=== PATIENT | male | born 1950 | race Caucasian/White ===

== ENCOUNTER → 2016-10-23 | Outpatient (CLI) | payer OTHER ==
[~2016-10-23] MED LIST: ALL100 PO; AMIO200T4 PO; AMX500 PO; ASPI81TA28 PO; ATOR80TA PO; CYAN100020 PO; DILT-113 PO; DRN400 PO; FERR1TAB13 PO; FERR325T PO; FOLI1TAB7 PO; FURO40TA3 PO; GABA1CAP5 PO; HYDR-5688 PO; KRIL1CAP18 PO; LEVO1TAB35 PO; LPT40; LSN5 PO; METO100T14 PO; MISCCAP80 PO; MULT-610 PO; OXYC-652 PO; OXYSR10 PO; PANT40TA PO; POTA1TAB PO; PRDUDL5 BU; RIVA1TAB4 PO; RXC5 PO; SILD100T PO; SILDENAFIL PO; TADA10TA PO; TADA5TAB11 PO; THIA100T11 PO; TRAM-10 PO; ULT50 PO; XRL10 PO; [UNRECOGNIZED DRUG - REMARK] IV
[2016-10-23 12:38] LABS: BLOOD UREA NITROGEN 18 mg/dl (7-18); BUN/CREATININE RATIO 18.2 (10-20); CALCIUM 8.8 mg/dl (8.5-10.1); CARBON DIOXIDE 26 mmol/L (21-32); CHLORIDE 103 mmol/L (98-107); GLUCOSE 124 mg/dl (70-99); SODIUM 139 mmol/L (136-145)
== END | disposition home or self-care (01) ==
LOC: C.LAB1850 10:27
PROVIDERS: ATTEND Internal Medicine Cardiovascular Disease
DX: I48.0 Paroxysmal atrial fibrillation (principal); I50.30 Unspecified diastolic (congestive) heart failure

== ENCOUNTER → 2016-10-30 | Outpatient (CLI) | payer OTHER ==
[2016-10-30 18:50] LABS: BLOOD UREA NITROGEN 14 mg/dl (7-18); BUN/CREATININE RATIO 14.8 (10-20); CALCIUM 9.2 mg/dl (8.5-10.1); CARBON DIOXIDE 29 mmol/L (21-32); CHLORIDE 104 mmol/L (98-107); CREATININE 0.95 mg/dl (0.60-1.40); GLUCOSE 120 mg/dl (70-99); POTASSIUM 3.8 mmol/L (3.5-5.1); SODIUM 140 mmol/L (136-145)
[2016-10-31 06:20] LABS: ESTIMATED AVERAGE GLUCOSE 137 mg/dl; HA1C FLAG Normal (Normal)
== END | disposition home or self-care (01) ==
LOC: C.LABMFLN 13:49
PROVIDERS: ATTEND Internal Medicine Cardiovascular Disease
DX: I50.30 Unspecified diastolic (congestive) heart failure (principal); R73.01 Impaired fasting glucose

== ENCOUNTER 2017-01-04 07:58 | Inpatient (IN) | payer OTHER ==
--- NOTE | 2016-12-21 10:52 | PAT Medication Instructions ---
Service Date Dec 21, 2016. Current Home Medication List Allopurinol (Allopurinol), 100 MG PO QAM Amiodarone Hcl (Cordarone), 200 MG PO QAM Amoxicillin (Amoxicillin), 4 CAP PO UD Aspirin (Aspirin Ec), 81 MG PO QAM Atorvastatin Calcium (Lipitor), 40 MG PO HS Cyanocobalamin (Vitamin B12), 1,000 MCG PO noon Cyanocobalamin (Vitamin B12), 1 TAB PO QAM Diltiazem Hcl Ext Rel (Tiazac), 180 MG PO QAM Ferrous Sulfate (Kp Ferrous Sulfate), 1 TAB PO QAM Furosemide (Lasix), 40 MG PO Q12 Gabapentin (Neurontin), 800 MG PO BID Hydrocodone/Acetaminophen 5MG/325MG ([place] 5MG/325MG), 1 TABLET PO Q4 PRN for Pain Krill Oil (Megared Apex-3 Krill Oil 500 mg), 1 CAP PO noon Lisinopril (Lisinopril), 5 MG PO QAM Metoprolol Tartrate (Lopressor) (Lopressor), 100 MG PO BID Multiple Vitamins W/ Minerals (Centrum Adults), 1 TAB PO QAM Pantoprazole (Protonix), 40 MG PO QPM Potassium Gluconate (Potassium Gluconate), 595 MG PO QAM Probiotic Product (Probiotic), 1 CAP PO BID Rivaroxaban (Xarelto), 20 TAB PO QPM Sildenafil Citrate (Viagra), 50 MG PO PRN Tadalafil (Cialis), 5 MG PO QAM Tramadol (Ultram), 50 MG PO BID PRN for Pain Medication Instructions For Your Scheduled Surgery - Hold the following medications 2 weeks prior to surgery: Krill Oil (Megared Apex-3 Krill Oil 500 mg), 1 CAP PO noon - Hold the following medications 48 hours prior to surgery per Cardiology instructions: Rivaroxaban (Xarelto), 20 TAB PO QPM - Hold the following medications the morning of surgery: Lisinopril (Lisinopril), 5 MG PO QAM Furosemide (Lasix), 40 MG PO Q12 Cyanocobalamin (Vitamin B12), 1 TAB PO QAM Ferrous Sulfate (Kp Ferrous Sulfate), 1 TAB PO QAM Multiple Vitamins W/ Minerals (Centrum Adults), 1 TAB PO QAM Probiotic Product (Probiotic), 1 CAP PO BID Cyanocobalamin (Vitamin B12), 1,000 MCG PO noon Potassium Gluconate (Potassium Gluconate), 595 MG PO QAM - Take the following medications the morning of surgery with a sip of water OTHERWISE NOTHING TO EAT OR DRINK AFTER MIDNIGHT: Aspirin (Aspirin Ec), 81 MG PO QAM Tramadol (Ultram), 50 MG PO BID PRN for Pain (may take up to 4 hours prior to surgery if needed) Diltiazem Hcl Ext Rel (Tiazac), 180 MG PO QAM Allopurinol (Allopurinol), 100 MG PO QAM Amiodarone Hcl (Cordarone), 200 MG PO QAM Gabapentin (Neurontin), 800 MG PO BID Hydrocodone/Acetaminophen 5MG/325MG ([place] 5MG/325MG), 1 TABLET PO Q4 PRN for Pain (may take up to 4 hours prior to surgery if needed) Metoprolol Tartrate (Lopressor) (Lopressor), 100 MG PO BID Tadalafil (Cialis), 5 MG PO QAM - Take the following medications as scheduled the night before surgery: Tramadol (Ultram), 50 MG PO BID PRN for Pain Gabapentin (Neurontin), 800 MG PO BID Hydrocodone/Acetaminophen 5MG/325MG ([place] 5MG/325MG), 1 TABLET PO Q4 PRN for Pain Metoprolol Tartrate (Lopressor) (Lopressor), 100 MG PO BID Furosemide (Lasix), 40 MG PO Q12 Probiotic Product (Probiotic), 1 CAP PO BID Atorvastatin Calcium (Lipitor), 40 MG PO HS Pantoprazole (Protonix), 40 MG PO QPM If you have any questions please call us at [phone] or [phone] or [phone]
--- NOTE | 2016-12-21 11:22 | DIAGNOSTIC IMAGING REPORT ---
CHEST PREADMISSION(PA/LAT) CLINICAL HISTORY: Preoperative chest COMPARISON STUDY: 06/10/2016 FINDINGS: The cardiac and mediastinal contours are normal. There is no evidence of focal pulmonary consolidation. There is no evidence of failure. No pleural effusions are visualized.[ The chest has an emphysematous configuration. There had been interval resolution of the right mid and lower lung zone parenchymal consolidation. IMPRESSION: No active disease in the chest. Electronically signed by: Santana Sauceda M.D. 12/21/2016 11:20 AM Dictated Date/Time: 12/21/2016 11:20 AM
[2016-12-21 11:42] LABS: BASO % 0.4 %; BASO ABS # 0.03 K/uL (0-0.2); EOS % 3.1 %; HEMATOCRIT 40.7 % (42-52); IG% 0.1 %; LYMPH % 19.6 %; LYMPH ABS # 1.44 K/uL (1.2-3.4); MEAN CELL VOLUME 83.4 fL (80-100); MEAN CORPUSCULAR HEMOGLOBIN 27.7 pg (25-34); MEAN CORPUSCULAR HGB CONC 33.2 g/dl (32-36); MONO % 9.9 %; NEUT % 66.9 %; PLATELET COUNT 180 K/uL (130-400); RED BLOOD COUNT 4.88 M/uL (4.7-6.1); WHITE BLOOD COUNT 7.35 K/uL (4.8-10.8)
[2016-12-21 11:51] LABS: URINE APPEARANCE CLEAR (CLEAR); URINE BILIRUBIN NEG (NEG); URINE COLOR YELLOW; URINE NITRITE NEG (NEG); URINE PH 7.5 (4.5-7.5); URINE SPECIFIC GRAVITY 1.007 (1.000-1.030); UROBILINOGEN NEG (NEG); ZZUR CULT IF INDIC CLEAN CATCH NO
[2016-12-21 11:55] LABS: INR 1.1 (0.9-1.1); PARTIAL THROMBOPLASTIN RATIO 1.2
[2016-12-21 12:00] LABS: ANISOCYTOSIS PRESENT; COMPLETE YES; HYPOCHROMIA PRESENT
[2016-12-21 12:02] LABS: MANUAL MICROSCOPIC REQUIRED? NO; REVIEW REQ? NO
[2016-12-21 12:30] LABS: ESTIMATED AVERAGE GLUCOSE 114 mg/dl; HA1C FLAG Normal (Normal)
[2016-12-21 12:33] LABS: BUN/CREATININE RATIO 17.7 (10-20); CALCIUM 9.3 mg/dl (8.5-10.1); CREATININE 0.83 mg/dl (0.60-1.40); POTASSIUM 3.7 mmol/L (3.5-5.1)
--- NOTE | 2017-01-03 15:19 | HISTORY & PHYSICAL EXAMINATION ---
DATE OF ADMISSION: 01/04/2017 CHIEF COMPLAINT: Left knee pain and right knee chronic prepatellar bursitis. HISTORY OF PRESENT ILLNESS: The patient is a 66-year-old gentleman with known osteoarthritis about his left knee. He had a previous right knee replacement without any complications. He does have some chronic prepatellar bursitis on the right knee. In the left knee has had previous intraarticular corticosteroid injections. He was actually scheduled to have a surgery previously, but this was canceled for medical reasons. He has now been surgically cleared and desires to proceed with left total knee arthroplasty. PAST MEDICAL HISTORY: Atrial fibrillation, coronary artery disease, diastolic congestive heart failure, hypertension, hypercholesterolemia, pulmonary hypertension, mitral regurgitation, esophageal reflux, gout. PAST SURGICAL HISTORY: Right total knee as above, cardiac catheterization. MEDICATIONS: Amiodarone HCL 200 mg daily, furosemide 40 mg 2 tablets twice daily, pantoprazole sodium 40 mg daily, allopurinol 100 mg daily, aspirin 81 mg daily, Centrum Silver daily, gabapentin 400 mg 2 tablets twice daily, omega 3 fish oil 500 mg daily, potassium gluconate 595 mg daily, tramadol 50 mg 1 to 2 tablets p.r.n. pain, vitamin B12 1000 mcg daily, atorvastatin calcium 80 mg half tablet at bedtime, ferrous sulfate 325 mg twice daily, diltiazem HCL ER 180 mg daily, lisinopril 5 mg daily, metoprolol tartrate 100 mg twice daily, probiotic daily, Xarelto 20 mg daily. ALLERGIES: No known drug allergies. SOCIAL HISTORY AND REVIEW OF SYSTEMS: Noncontributory. PHYSICAL EXAMINATION: GENERAL: Well-nourished, well-developed male who appears his stated age. HEENT: Normocephalic, atraumatic. Extraocular movements intact. Oropharynx is pink and moist. NECK: Supple without adenopathy. LUNGS: Clear to auscultation bilaterally. HEART: Regular rate and rhythm. ABDOMEN: Soft, nontender, nondistended. EXTREMITIES: The upper extremity within normal limits. The left knee has a slight varus alignment. He complains primarily of medial compartment pain. His range of motion approximately 0-125 degrees. X-RAYS: X-rays were reviewed. He has bone on bone arthritis of the medial compartment with complete loss of joint space. There is medial osteophyte formation about the medial tibial plateau and medial femoral condyle. He has moderate degenerative change about the patellofemoral joint as well. ASSESSMENT: Left knee degenerative joint disease. PLAN: Risks versus benefits were discussed. Consent was obtained. The patient's primary care physician is Dina Mcwilliams from the [place]. He has been seen and evaluated by Dr. Orozco from [facility] as well. We will proceed with left total knee arthroplasty as well as excision of prepatellar bursa right knee upon preoperative workup and medical clearance.
[~2017-01-04] VITALS: Ht 177.8 cm; Wt 95.3 kg
[2017-01-04] VITALS (8 sets, daily range): BP systolic 101–136; BP diastolic 66–80; PULSE 47–68; TEMP 36.2–36.8; O2SAT 94–100; Ht 177.8 cm; Wt 95.3 kg
[2017-01-04] MEDS: TRANEXAMIC ACID INJ 1,000 MG in SODIUM CHLORIDE 0.9% 100ML 100 ML IV SCH ×2 (06:00→14:20)
[~2017-01-04 07:58] MED LIST changes: +ACETAMINOPHEN 500 MG TAB PO SCH; -ALL100 PO; -AMIO200T4 PO; -AMX500 PO; -ASPI81TA28 PO; -ATOR80TA PO; +BUPIVACAINE 0.25% 30 ML VIAL ONE; +BUPIVACAINE 0.5 % 5 MG/1 ML PF 10ML VIAL ONE; +CEFAZOLIN 2000 MG/60 ML D5W 60 ML IV SCH; -CYAN100020 PO; +CeleBREX 200 MG CAP PO SCH; +DEXAMETHASONE 4 MG TAB PO SCH; -DILT-113 PO; -DRN400 PO; +FAMOTIDINE 20 MG TAB PO SCH; +FENTANYL CITRATE INJ 50 MCG/1 ML 2 ML VIAL ONE; -FERR1TAB13 PO; -FERR325T PO; -FOLI1TAB7 PO; -FURO40TA3 PO; -GABA1CAP5 PO; +GABAPENTIN 300 MG CAP PO SCH; -KRIL1CAP18 PO; +LACTATED RINGER'S 1000ML 1,000 ML IV SCH; +LACTATED RINGER'S 1000ML 500 ML IV ONE; +LACTATED RINGER'S 1000ML IV SCH; -LEVO1TAB35 PO; +LIDOCAINE HCL 2% 2 ML VIAL (20MG/ML) ONE; -LPT40; -LSN5 PO; -METO100T14 PO; +METOCLOPRAMIDE HCL 10 MG TAB PO SCH; +MIDAZOLAM HCL 1 MG/ML 2ML VIAL ONE; -MISCCAP80 PO; -MULT-610 PO; -OXYC-652 PO; -OXYSR10 PO; -PANT40TA PO; -POTA1TAB PO; -PRDUDL5 BU; +PROPOFOL IV EMULSION 10 MG/ML 20 ML VIAL IV ONE; -RIVA1TAB4 PO; +ROPIVACAINE 5MG/ML 30 ML 150 MG, BUPIVACAINE/EPINEPHR 0.5% MPF 30 ML, KETOROLAC TROMETH... INFIL SCH; -RXC5 PO; -SILDENAFIL PO; -TADA10TA PO; -TADA5TAB11 PO; -THIA100T11 PO; -ULT50 PO; -XRL10 PO; -[UNRECOGNIZED DRUG - REMARK] IV
[2017-01-04] MEDS ORDERED: POVIDONE-IODINE OP SOLN 30 ML BTL ONE (07:59)
[2017-01-04] MEDS ORDERED: BACITRACIN 50000 UNIT VIAL ONE (07:59)
[2017-01-04] MEDS ORDERED: ORTHO JOINT ANESTHETIC ONE (07:59)
--- NOTE | 2017-01-04 09:06 | History & Physical Bridge Note ---
H&P Re-Evaluation Bridge Note: I have examined the patient, reviewed the History & Physical and in the interval since the performance of the History & Physical I have noted the following changes of clinical significance: No changes noted
[2017-01-04] MEDS ORDERED: HYDROmorphone INJ 2 MG/ML SYR/VIAL ONE (09:10)
[2017-01-04] MEDS ORDERED: LABETALOL HCL IV 5 MG/ML 20ML IV PRN (09:15)
[2017-01-04] MEDS ORDERED: ONDANSETRON INJ 2 MG/ML 2 ML VIAL IV PRN ×2 (09:15→11:15)
[2017-01-04] MEDS ORDERED: KETOROLAC TROMETHAMINE 30 MG/ML VIAL IV. PRN (09:15)
[2017-01-04] MEDS ORDERED: ATROPINE SULFATE 0.1 MG/ML 5ML SYR IV PRN (09:15)
[2017-01-04] MEDS ORDERED: PHENYLEPHRINE 100MCG/ML 5ML SYR ONE (10:13)
--- NOTE | 2017-01-04 10:39 | [facility] Post Operative Brief Note ---
Immediate Operative Summary Operative Date January 04, 2017. Pre-Operative Diagnosis Left knee degenerative joint disease, right knee chronic prepatellar bursitis Post-Operative Diagnosis Left knee degenerative joint disease, right knee chronic prepatellar bursitis Procedure(s) Performed Left Total Knee Arthroplasty; Excision Prepatellar Bursa Right Knee Surgeon Dr. Mehran Alex Industrial Sales Engineer Surgeon(s) Alex Diane PA-C Estimated Blood Loss 25cc Findings OA left, epidermal inclusion cyst right Specimens A: Left knee bone and tissue B: Right knee epidermal inclusion cyst Disposition Recovery Room / PACU
[2017-01-04] MEDS ORDERED: NEOSTIGMINE METHYLSULFATE 5 MG/5 ML SYR ONE (11:13)
[2017-01-04] MEDS ORDERED: GLYCOPYRROLATE INJ 0.2 MG/ML VIAL ONE (11:13)
[2017-01-04] MEDS ORDERED: EpHEDrine SULFATE 50MG/5ML SYR ONE (11:15)
[2017-01-04] MEDS ORDERED: BISACODYL 10 MG SUPP PR PRN (11:15)
[2017-01-04] MEDS ORDERED: ALUMINUM/MAGNESIUM/SIMETH (MAALOX MAX) 30 ML UDC PO PRN (11:15)
[2017-01-04] MEDS ORDERED: MAGNESIUM HYDROXIDE SUSP 30 ML UDC PO PRN (11:15)
[2017-01-04] MEDS ORDERED: HYDROmorphone INJ 1 MG/ML SYR ONE (11:23)
[2017-01-04] MEDS: HYDROmorphone INJ 2 MG/ML SYR/VIAL IV PRN ×2 (11:33→11:40)
--- NOTE | 2017-01-04 11:40 | DIAGNOSTIC IMAGING REPORT ---
LEFT KNEE 1 OR 2 VIEWS ROUTINE CLINICAL HISTORY: Postoperative evaluation. COMPARISON: None FINDINGS: Alignment of the total left knee arthroplasty is anatomic. There is no fracture or unexpected radiopaque foreign body. Skin yanique and drains are present. IMPRESSION: Expected findings following total left knee arthroplasty. Electronically signed by: Urbano Saucedo M.D. 01/04/2017 11:39 AM Dictated Date/Time: 01/04/2017 11:38 AM
--- NOTE | 2017-01-04 13:44 | Anesthesiology Progress Note ---
Anesthesia Post Op Note Date & Time January 04, 2017 at 13:43 Vital Signs Vital Signs Past 12 Hours Date Time Temp Pulse Resp B/P Pulse Ox O2 Delivery O2 Flow Rate FiO2 01/04/17 13:13 47 16 103/66 100 Nasal Cannula 2.0 01/04/17 12:15 96 Nasal Cannula 2.0 01/04/17 12:15 36.5 67 14 105/67 96 Nasal Cannula 2.0 01/04/17 12:15 96 Nasal Cannula 2.0 01/04/17 12:03 66 17 98 01/04/17 12:03 66 17 01/04/17 12:00 36.5 70 19 115/73 98 Nasal Cannula 2 01/04/17 12:00 115/73 01/04/17 11:58 67 14 01/04/17 11:58 71 14 98 01/04/17 11:55 101/73 01/04/17 11:53 62 16 01/04/17 11:53 64 16 97 01/04/17 11:50 107/61 01/04/17 11:48 65 15 01/04/17 11:48 63 15 97 01/04/17 11:47 70 14 01/04/17 11:47 69 14 98 01/04/17 11:45 109/60 01/04/17 11:42 71 17 96 01/04/17 11:42 72 17 01/04/17 11:40 108/69 01/04/17 11:37 64 14 91 01/04/17 11:37 67 14 01/04/17 11:35 110/68 01/04/17 11:32 69 15 92 01/04/17 11:32 66 15 01/04/17 11:30 123/76 01/04/17 11:27 70 14 99 01/04/17 11:27 68 14 01/04/17 11:25 129/67 01/04/17 11:22 65 17 01/04/17 11:22 65 17 99 01/04/17 11:20 129/88 01/04/17 11:17 79 16 01/04/17 11:17 86 16 99 01/04/17 11:15 138/87 01/04/17 11:12 84 17 01/04/17 11:12 81 17 99 01/04/17 11:10 138/96 01/04/17 11:09 144/91 01/04/17 11:09 36.5 84 16 144/91 100 Mask 10 01/04/17 11:07 99 23 168/114 99 168/114 01/04/17 11:07 91 23 168/114 168/114 01/04/17 08:30 36.8 68 20 136/68 96 Room Air Notes Mental Status: alert / awake / arousable, participated in evaluation Pt Amnestic to Procedure: Yes Nausea / Vomiting: adequately controlled Pain: adequately controlled Airway Patency, RR, SpO2: stable & adequate BP & HR: stable & adequate Hydration State: stable & adequate Anesthetic Complications: no major complications apparent
[2017-01-04] MEDS: D5W AND 1/2NSS + 20MEQ KCL 1,000 ML IV SCH ×2 (13:56→23:57)
[2017-01-04] MEDS ORDERED: HydrALAZINE HCL 20 MG/ML VIAL IV. PRN (14:00)
--- NOTE | 2017-01-04 14:03 | Medical Consult ---
Consultation Date of Consultation: January 04, 2017. Attending Physician: Mehran Alex M.D. Reason for Consultation: Medical management History of Present Illness Patient is a 66 y/o male, with PMHx of A.fib, CAD, Diastolic CHF, HTN, Hypercholesterolemia, Pulmonary HTN, GERD, Gout, and Anemia, s/p Left Total Knee Arthroplasty; Excision Prepatellar Bursa Right Knee by Dr. Alex on 01/04. Patient states he is feeling well postop. Pain is well controlled. No BM or flatus postop. Eating lunch while interviewing- tolerating well. Patient denies any fever, chills, sweats, lightheadedness, dizziness, vision changes, CP, palpitations, edema, SOB, wheezing, cough, abdominal pain, nausea, vomiting, diarrhea, urinary symptoms, melena, numbness/tingling, weakness, muscle/joint pain, anxiety/depression, active bleeding, or new skin discoloration/changes. Past Medical/Surgical History Medical Problems: 1. A.fib 2. CAD 3. Diastolic CHF 4. HTN 5. Hypercholesterolemia 6. Pulmonary HTN 7. GERD 8. Gout 9. Anemia Surgical Hx: 1. Total right knee 2. Cardiac cath Social History Smoking Status: Never Smoker Drug Use: none Marital Status: single Occupation Status: retired Allergies Coded Allergies: No Known Allergies (Unverified , 01/04/17) Current Inpatient Medications Current Inpatient Medications Medications (Trade) Dose Ordered Sig/Briana Route Start Time Stop Time Status Last Admin Dose Admin Lactated Ringer's 1,000 ml @ 60 mls/hr [id number] IV 01/04/17 06:00 01/04/17 22:39 01/04/17 08:30 60 MLS/HR Cefazolin Sodium (Ancef 2000mg/60 ml D5W) 60 ml @ 100 mls/hr PREOP IV 01/04/17 06:00 01/04/17 18:00 01/04/17 09:26 100 MLS/HR Acetaminophen (Tylenol Tab) 1,000 mg PREOP PO 01/04/17 06:00 01/04/17 18:00 01/04/17 08:44 1,000 MG Celecoxib (CeleBREX CAP) 200 mg PREOP PO 01/04/17 06:00 01/04/17 18:00 01/04/17 08:42 200 MG Dexamethasone (Decadron Tab) 8 mg PREOP PO 01/04/17 06:00 01/04/17 18:00 01/04/17 08:42 8 MG Famotidine (Pepcid Tab) 20 mg PREOP PO 01/04/17 06:00 01/04/17 18:00 01/04/17 08:43 20 MG Gabapentin (Neurontin Cap) 300 mg PREOP PO 01/04/17 06:00 01/04/17 18:00 Metoclopramide HCl 10 mg 10 mg PREOP PO 01/04/17 06:00 01/04/17 18:00 01/04/17 08:43 10 MG Tranexamic Acid 1000 mg/Sodium Chloride 110 ml @ 660 mls/hr TODAY@06,0630 IV 01/04/17 06:00 01/04/17 18:00 Lactated Ringer's (Lr 1000ml) 1,000 ml @ 15 mls/hr Q24H IV 01/04/17 06:00 01/05/17 05:59 Ondansetron HCl (Zofran Inj) 4 mg ONE PRN IV 01/04/17 09:15 01/04/17 14:15 Atropine Sulfate (Atropine Sulfate 0.1MG/Ml Inj) 0.5 mg Q1M PRN IV 01/04/17 09:15 01/04/17 14:15 Ketorolac Tromethamine (Toradol Inj) 30 mg ONE PRN IV. 01/04/17 09:15 01/04/17 14:15 01/04/17 11:25 30 MG Hydromorphone HCl (Dilaudid Inj) 0.25 mg Q5M PRN IV 01/04/17 09:15 01/04/17 14:15 01/04/17 11:40 0.25 MG Labetalol HCl (Normodyne IV) 5 mg Q5M PRN IV 01/04/17 09:15 01/04/17 14:15 Allopurinol (Zyloprim Tab) 100 mg QAM PO 01/05/17 09:00 02/04/17 08:59 Amiodarone HCl (Cordarone Tab) 200 mg QAM PO 01/05/17 09:00 02/04/17 08:59 Atorvastatin Calcium (Lipitor Tab) 40 mg HS PO 01/04/17 21:00 02/03/17 20:59 Diltiazem HCl (TIAzac CAP) 180 mg QAM PO 01/05/17 09:00 02/04/17 08:59 Gabapentin (Neurontin Cap) 800 mg BID PO 01/04/17 21:00 02/03/17 20:59 Lisinopril (Zestril Tab) 5 mg QAM PO 01/05/17 09:00 02/04/17 08:59 Metoprolol Tartrate (Lopressor Tab) 100 mg BID PO 01/04/17 21:00 02/03/17 20:59 Pantoprazole Sodium (Protonix Tab) 40 mg QPM PO 01/04/17 21:00 02/03/17 20:59 Rivaroxaban (Xarelto Tab) 20 mg QPM PO 01/05/17 16:00 02/04/17 15:59 UNV Cyanocobalamin 1000 mcg 1,000 mcg QAM PO 01/05/17 09:00 02/04/17 08:59 Potassium Chloride/Dextrose/ Sod Cl 1,000 ml @ 100 mls/hr Q10H IV 01/04/17 14:00 01/05/17 13:59 Cefazolin Sodium/ Dextrose (Ancef Iv/D5 50ml) 60 ml @ 100 mls/hr Q8H IV 01/04/17 18:00 01/05/17 02:35 Oxycodone HCl (Roxicodone Immediate Rel Tab) 1 TABLET FOR PAIN RATING... Q4H PRN PO 01/04/17 11:15 01/18/17 11:14 Oxycodone HCl (Oxycontin Tab) 10 mg Q12 PO 01/04/17 21:00 01/18/17 20:59 Acetaminophen (Tylenol Tab) 1,000 mg Q8H PO 01/04/17 16:00 02/03/17 15:59 Magnesium Hydroxide (Milk Of Magnesia Susp) 30 ml Q6H PRN PO 01/04/17 11:15 02/03/17 11:14 Bisacodyl (Dulcolax Supp) 10 mg DAILY PRN ND 01/04/17 11:15 02/03/17 11:14 Senna (Senokot Tab) 17.2 mg HS PO 01/04/17 21:00 02/03/17 20:59 Docusate Sodium (coLACE CAP) 100 mg BID PO 01/04/17 21:00 02/03/17 20:59 Al Hydrox/Mg Hydrox/Simethicone (Maalox Max Susp) 15 ml Q4H PRN PO 01/04/17 11:15 02/03/17 11:14 Multivitamins (Multivitamin Tab) 1 tab QAM PO 01/05/17 09:00 02/04/17 08:59 Ondansetron HCl (Zofran Inj) 4 mg Q6H PRN IV 01/04/17 11:15 02/03/17 11:14 Ferrous Gluconate (Ferrous Gluconate Tab) 324 mg TIDM PO 01/04/17 17:45 02/03/17 17:44 Miscellaneous Information (Order Awaiting Action) 1 ea QS N/A 01/04/17 16:00 02/03/17 15:59 Physical Exam Date Time Temp Pulse Resp B/P Pulse Ox O2 Delivery O2 Flow Rate FiO2 01/04/17 13:13 47 16 103/66 100 Nasal Cannula 2.0 01/04/17 12:15 96 Nasal Cannula 2.0 01/04/17 12:15 36.5 67 14 105/67 96 Nasal Cannula 2.0 01/04/17 12:15 96 Nasal Cannula 2.0 01/04/17 12:03 66 17 98 01/04/17 12:03 66 17 01/04/17 12:00 36.5 70 19 115/73 98 Nasal Cannula 2 01/04/17 12:00 115/73 01/04/17 11:58 67 14 01/04/17 11:58 71 14 98 01/04/17 11:55 101/73 01/04/17 11:53 62 16 01/04/17 11:53 64 16 97 01/04/17 11:50 107/61 01/04/17 11:48 65 15 01/04/17 11:48 63 15 97 01/04/17 11:47 70 14 01/04/17 11:47 69 14 98 01/04/17 11:45 109/60 01/04/17 11:42 71 17 96 01/04/17 11:42 72 17 01/04/17 11:40 108/69 01/04/17 11:37 64 14 91 01/04/17 11:37 67 14 01/04/17 11:35 110/68 01/04/17 11:32 69 15 92 01/04/17 11:32 66 15 01/04/17 11:30 123/76 01/04/17 11:27 70 14 99 01/04/17 11:27 68 14 01/04/17 11:25 129/67 01/04/17 11:22 65 17 01/04/17 11:22 65 17 99 01/04/17 11:20 129/88 01/04/17 11:17 79 16 01/04/17 11:17 86 16 99 01/04/17 11:15 138/87 01/04/17 11:12 84 17 01/04/17 11:12 81 17 99 01/04/17 11:10 138/96 01/04/17 11:09 144/91 01/04/17 11:09 36.5 84 16 144/91 100 Mask 10 01/04/17 11:07 99 23 168/114 99 168/114 01/04/17 11:07 91 23 168/114 168/114 01/04/17 08:30 36.8 68 20 136/68 96 Room Air General Appearance: no apparent distress Head: normocephalic, atraumatic Eyes: normal inspection, PERRL ENT: hearing grossly normal Neck: supple Respiratory/Chest: lungs clear, no respiratory distress, no accessory muscle use Cardiovascular: regular rate, rhythm Abdomen/GI: normal bowel sounds, non tender, + distended Back: normal inspection Extremities/Musculoskelatal: no pedal edema, + pertinent finding (LLE in JAIMIE bandage ) Neurologic/Psych: alert, normal mood/affect, oriented x 3 Skin: normal color, warm/dry, no rash Laboratory Results Last 24 Hours Test 01/04/17 08:25 Assessment & Plan Patient is a 66 y/o male, with PMHx of A.fib, CAD, Diastolic CHF, HTN, Hypercholesterolemia, Pulmonary HTN, GERD, Gout, and Anemia, s/p Left Total Knee Arthroplasty; Excision Prepatellar Bursa Right Knee by Dr. Alex on 01/04. - Surgical management, PT/OT, pain management, and DVT prophylaxis as per primary team - Follow CBC and PRP A.fib/CAD/Diastolic CHF: - Continue Amiodarone, ASA, Diltiazem, Lopressor - Xarelto continued as per surgical team HTN: - Lisinopril held pending PRP tomorrow AM - Hydralazine IV PRN Hypercholesterolemia: Continue Lipitor h/o pulmonary HTN- noted h/o gout: Continue Allopurinol Anemia: Continue iron and b12 supplement GERD: Continue Protonix daily GI Prophylaxis: Maalox PRN, IV Zofran PRN, Colace and/or Milk of Mag PRN DVT prophylaxis: As per primary team Code Status: LEVEL I, FULL Dispo: Discharge as per primary team Thank you for this consultation. We will continue to follow. i personally examined pt and verified all daniels points w T Murarik PAC feeling good no cp no sob vitals noted, nad breathing unlabored, no accessory muscles a/p afib, CAD, chronic diastolic CHF, HTN - appearing stable, as above, also hold lasix until volume status clearly requiring it as he recovers
[2017-01-04] MEDS: OXYCODONE HCL IR 5 MG TAB (IMMEDIATE RELEASE) PO PRN (14:30)
--- NOTE | 2017-01-04 14:30 | OPERATIVE REPORT ---
DATE OF OPERATION: 01/04/2017 PREOPERATIVE DIAGNOSIS: Osteoarthritis, left knee. POSTOPERATIVE DIAGNOSIS: Osteoarthritis, left knee. PROCEDURE: Left total knee arthroplasty. SURGEON: Dr. Alex. TECHNOLOGY TRAINER: BIJAN Diane. IMPLANTS USED: Femoral size 5, tibia size 5, tibial poly 11, and patella size 36. CONDITION: Recovery room stable. ANESTHESIA spinal. COMPLICATIONS: None. OPERATION AND FINDINGS: Following induction of spinal anesthesia, the patient's left leg was prepped and draped in the usual sterile manner. Limb was exsanguinated with an Esmarch bandage and tourniquet was inflated to 350 mmHg. A longitudinal incision was made anteriorly. Subcutaneous tissue was sharply dissected. Electrocautery was used for hemostasis. Prepatellar bursa was incised and median parapatellar incision was performed. Patella was everted and the knee was flexed. Fat pad was removed to aid in visualization and the anterior and posterior cruciate ligaments were removed. The medial face of the tibia was cleared of soft tissue first with a Bovie and a Drake elevator. This tissue was retracted posteriorly using a blunt Hohmann. A Silverman retractor was used to expose the synovium above on the anterior aspect of the femur and this was removed down to bone. The PSI guide was placed on the distal femur and two pins were placed anteriorly and kept in position and two additional pins were placed distally and removed. The distal femoral cutting block was placed in position and the distal femoral cut was used in the +0 setting. Next, the cutting block was removed and the block was placed in the distal end of the femur. Care was taken to ensure appropriate external rotation and feeler gauge was used to ensure no notching would occur. The femoral block was centered on the distal femur and in the medial and lateral direction and was fixed using two bone screws. The gold pins were then removed. The oscillating saw was used to create the bone cuts and the distal femoral cutting block was removed and the reciprocating saw was used to further trim the femoral cuts as well as a deep in the area for the trochlear groove. Next, posterior condyle remnants were removed. Following this, a meniscal clamp and knife were utilized to remove the anterior portion of both medial and lateral meniscus. The proximal tibia PSI guide was placed into position and the proximal tibial cutting guide was screwed into position. The extra medullary alignment guide was utilized to ensure appropriate alignment. The proximal tibia was cut and the proximal tibial cutting block was removed and this bone fragment was removed. The appropriate guide was used to perform the notch cut on the distal femur and a lamina gas system operator and a cochlear knife were utilized to finish both medial and lateral meniscectomies to remove any remnants of the posterior or anterior cruciate ligaments. Following this, the distal femoral component was impacted into position and blunt Mary Anne was used to sublux the tibia anteriorly. The proximal tibia was sized and a size 5 tibial tray was chosen as the size to be used. This was put into position and appropriate external rotation and a double check with extramedullary alignment guide was performed. The canal for the tibial stem was prepared first with a 17 mm drill and then the punch and a mallet and the trial tibial poly was placed. A 11 was chosen the size to be used. It was brought to extension and the patella was prepared with the patellar reamer. A 36 component was chosen the size to be used. The trial component was placed and knee was taken through a full range of motion and there was found to be no lateral subluxation of the tibia. No lateral release was required. The trials were all removed. The final components were obtained and assembled. Cement was mixed. The knee was thoroughly irrigated and the ortho mix was injected about the knee joint. The final components were cemented into position. After thoroughly suctioning and drying the bone ends, all excess cement was removed. The knee was held in extension while the cement hardened. The wound was irrigated and closed over a Hemovac drain. #1 Vicryl was used to close the extensor mechanism. Subcutaneous tissues closed using 0 Dexon. Skin was closed with yanique. Sterile dressing of Adaptic, 4 x 4's, sterile Webril, and Maxx was applied. The patient tolerated the procedure well. Following the total knee replacement, an incision was made over the palpable mass in the right knee. Subcutaneous tissue was sharply dissected. Electrocautery was used for hemostasis. A cystic structure with caseous contents was noted consistent with an epidermal inclusion cyst. It was excised in its entirety. This wound was irrigated and closed with 2-0 Dexon and yanique. Sterile dressing of Adaptic, 4x4s, and sterile Webril was applied. The patient tolerated the procedure well. Due to the complex nature of the procedure, the entire surgery was performed with the operational assistance of BIJAN Diane. The teachers assistant, under direct supervision, was involved in the actual performance of all aspects of the surgical procedure including hemostasis, tissue retraction and incision, instrument management, patient positioning, and wound closure. I attest to the content of the Intraoperative Record and any orders documented therein. Any exceptions are noted below. [place]
[2017-01-04] MEDS: ACETAMINOPHEN 500 MG TAB PO SCH ×2 (15:33→23:57)
[2017-01-04] MEDS: FERROUS GLUCONATE 324 MG TAB PO SCH (17:47)
[2017-01-04] MEDS: CEFAZOLIN IV 2,000 MG in DEXTROSE 5% 50ML 50 ML IV SCH (18:05)
[2017-01-04] MEDS ORDERED: NURSING DECISION MEDICATION ORDER SCH (22:45)
[2017-01-04] MEDS: ATORVASTATIN 20 MG TAB PO SCH (22:54)
[2017-01-04] MEDS: PANTOprazole SOD 40 MG TAB PO SCH (22:54)
[2017-01-04] MEDS: DOCUSATE SODIUM 100 MG CAP PO SCH (22:54)
[2017-01-04] MEDS: SENNA 8.6 MG TAB PO SCH (22:54)
[2017-01-04] MEDS: GABAPENTIN 400 MG CAP PO SCH (22:54)
[2017-01-04] MEDS: OXYCODONE HCL 10 MG TABCR (OXYCONTIN) PO SCH (22:55)
[2017-01-04] MEDS: METOPROLOL TARTRATE 100 MG TAB PO SCH (22:55)
[2017-01-04] MEDS ORDERED: COUGH DROP (SUGAR FREE) LOZ 24 LOZ/1 BOX PO PRN (23:00)
[2017-01-04] MEDS ORDERED: NURSING VERBAL MED ORDER ONE (23:30)
[2017-01-05] MEDS: CEFAZOLIN IV 2,000 MG in DEXTROSE 5% 50ML 50 ML IV SCH (02:11)
[2017-01-05 03:21] VITALS: BP 99/60; PULSE 65; TEMP 36.4; O2SAT 97
[2017-01-05 06:40] LABS: HEMATOCRIT 29.6 % (42-52); MEAN CELL VOLUME 83.6 fL (80-100); MEAN CORPUSCULAR HGB CONC 33.4 g/dl (32-36); MEAN PLATELET VOLUME 10.7 fL (7.4-10.4); PLATELET COUNT 165 K/uL (130-400); RED BLOOD COUNT 3.54 M/uL (4.7-6.1); WHITE BLOOD COUNT 15.09 K/uL (4.8-10.8)
[2017-01-05 07:05] VITALS: BP 106/67; PULSE 66; TEMP 36.5; O2SAT 98
[2017-01-05 07:08] LABS: BUN/CREATININE RATIO 21.1 (10-20); CALCIUM 8.8 mg/dl (8.5-10.1); CREATININE 0.95 mg/dl (0.60-1.40)
--- NOTE | 2017-01-05 08:00 | Orthopedic Progress Note ---
Orthopedic Progress Note Date of Service January 05, 2017. Subjective Post OP Day: 1 Reports: feeling well Objective N/V intact, dressing C/D/I (Hemovac in place), toes mobile Date Time Temp Pulse Resp B/P Pulse Ox O2 Delivery O2 Flow Rate FiO2 01/05/17 07:05 36.5 66 15 106/67 98 Room Air 01/05/17 03:21 36.4 65 14 99/60 97 Room Air 01/05/17 00:15 Room Air 01/04/17 23:30 36.7 66 16 128/80 97 Room Air 01/04/17 22:48 66 120/78 01/04/17 15:20 Room Air 01/04/17 15:15 36.2 56 15 108/70 94 Room Air 01/04/17 14:18 54 20 101/66 99 Nasal Cannula 2.0 01/04/17 13:13 47 16 103/66 100 Nasal Cannula 2.0 01/04/17 12:45 64 15 107/66 97 01/04/17 12:15 96 Nasal Cannula 2.0 01/04/17 12:15 36.5 67 14 105/67 96 Nasal Cannula 2.0 01/04/17 12:15 96 Nasal Cannula 2.0 01/04/17 12:03 66 17 98 01/04/17 12:03 66 17 01/04/17 12:00 36.5 70 19 115/73 98 Nasal Cannula 2 01/04/17 12:00 115/73 01/04/17 11:58 67 14 01/04/17 11:58 71 14 98 01/04/17 11:55 101/73 01/04/17 11:53 62 16 01/04/17 11:53 64 16 97 01/04/17 11:50 107/61 01/04/17 11:48 65 15 01/04/17 11:48 63 15 97 01/04/17 11:47 70 14 01/04/17 11:47 69 14 98 01/04/17 11:45 109/60 01/04/17 11:42 71 17 96 01/04/17 11:42 72 17 01/04/17 11:40 108/69 01/04/17 11:37 64 14 91 01/04/17 11:37 67 14 01/04/17 11:35 110/68 01/04/17 11:32 69 15 92 01/04/17 11:32 66 15 01/04/17 11:30 123/76 01/04/17 11:27 70 14 99 01/04/17 11:27 68 14 01/04/17 11:25 129/67 01/04/17 11:22 65 17 01/04/17 11:22 65 17 99 01/04/17 11:20 129/88 01/04/17 11:17 79 16 01/04/17 11:17 86 16 99 01/04/17 11:15 138/87 01/04/17 11:12 84 17 01/04/17 11:12 81 17 99 01/04/17 11:10 138/96 01/04/17 11:09 144/91 01/04/17 11:09 36.5 84 16 144/91 100 Mask 10 01/04/17 11:07 99 23 168/114 99 168/114 01/04/17 11:07 91 23 168/114 168/114 01/04/17 08:30 36.8 68 20 136/68 96 Room Air Laboratory Results 24 Hours: Test 01/05/17 05:50 Hematocrit 29.6 % Hemoglobin 9.9 g/dL Assessment & Plan Assessment: 66 yo male stable POD #1 s/p right knee prepatellar bursectomy and left TKA Plan: 1. Med management 2. DVT prophylaxis- will resume Xarelto, TEDs, SCDs 3. PT/OT 4. D/C planning- home w/ HH
[2017-01-05] MEDS: ACETAMINOPHEN 500 MG TAB PO SCH ×3 (08:22→23:51)
[2017-01-05] MEDS: FERROUS GLUCONATE 324 MG TAB PO SCH ×3 (08:23→17:46)
[2017-01-05] MEDS: OXYCODONE HCL 10 MG TABCR (OXYCONTIN) PO SCH ×2 (08:53→20:53)
[2017-01-05] MEDS: DOCUSATE SODIUM 100 MG CAP PO SCH ×2 (08:53→20:56)
[2017-01-05] MEDS: AMIODARONE 200 MG TAB PO SCH (08:54)
[2017-01-05] MEDS: CYANOCOBALAMIN 500 MCG TAB (VIT B-12) PO SCH (08:54)
[2017-01-05] MEDS: GABAPENTIN 400 MG CAP PO SCH ×2 (08:54→20:55)
--- NOTE | 2017-01-05 08:54 | Hospitalist Progress Note ---
Hospitalist Progress Note Date of Service January 05, 2017. (Freda Castellanos ., BIJAN) Subjective Pt evaluation today including: conversation w/ patient, physical exam, chart review, lab review, review of inpatient medication list Voiding: no voiding problems, no incontinence Patient states he is feeling well. He is eating and drinking OK. +flatus. No BMs postop; last BM on 01/04 prior to procedure. Patient denies any fever, chills , sweats, lightheadedness, dizziness, vision changes, CP, palpitations, edema, SOB, wheezing, cough, abdominal pain, nausea, vomiting, diarrhea, urinary symptoms, melena, numbness/tingling, weakness, muscle/joint pain, anxiety/ depression, active bleeding, or new skin discoloration/changes. (Freda Castellanos ., LEONARDOC) Medications Current Inpatient Medications Medications (Trade) Dose Ordered Sig/Briana Route Start Time Stop Time Status Last Admin Dose Admin Allopurinol (Zyloprim Tab) 100 mg QAM PO 01/05/17 09:00 02/04/17 08:59 01/05/17 08:56 100 MG Amiodarone HCl (Cordarone Tab) 200 mg QAM PO 01/05/17 09:00 02/04/17 08:59 01/05/17 08:54 200 MG Atorvastatin Calcium (Lipitor Tab) 40 mg HS PO 01/04/17 21:00 02/03/17 20:59 01/04/17 22:54 40 MG Diltiazem HCl (TIAzac CAP) 180 mg QAM PO 01/05/17 09:00 02/04/17 08:59 01/05/17 08:56 180 MG Gabapentin (Neurontin Cap) 800 mg BID PO 01/04/17 21:00 02/03/17 20:59 01/05/17 08:54 800 MG Metoprolol Tartrate (Lopressor Tab) 100 mg BID PO 01/04/17 21:00 02/03/17 20:59 01/05/17 08:55 100 MG Pantoprazole Sodium (Protonix Tab) 40 mg QPM PO 01/04/17 21:00 02/03/17 20:59 01/04/17 22:54 40 MG Rivaroxaban (Xarelto Tab) 20 mg DAILY@1745 PO 01/05/17 17:45 02/04/17 17:44 Cyanocobalamin (Vitamin B-12 Tab) 1,000 mcg QAM PO 01/05/17 09:00 02/04/17 08:59 01/05/17 08:54 1,000 MCG Oxycodone HCl (Roxicodone Immediate Rel Tab) 1 TABLET FOR PAIN RATING... Q4H PRN PO 01/04/17 11:15 01/18/17 11:14 01/04/17 14:30 10 MG Oxycodone HCl (Oxycontin Tab) 10 mg Q12 PO 01/04/17 21:00 01/18/17 20:59 01/05/17 08:53 10 MG Acetaminophen (Tylenol Tab) 1,000 mg Q8H PO 01/04/17 16:00 02/03/17 15:59 01/05/17 08:22 1,000 MG Magnesium Hydroxide (Milk Of Magnesia Susp) 30 ml Q6H PRN PO 01/04/17 11:15 02/03/17 11:14 Bisacodyl (Dulcolax Supp) 10 mg DAILY PRN MO 01/04/17 11:15 02/03/17 11:14 Senna (Senokot Tab) 17.2 mg HS PO 01/04/17 21:00 02/03/17 20:59 01/04/17 22:54 17.2 MG Docusate Sodium (coLACE CAP) 100 mg BID PO 01/04/17 21:00 02/03/17 20:59 01/05/17 08:53 100 MG Al Hydrox/Mg Hydrox/Simethicone (Maalox Max Susp) 15 ml Q4H PRN PO 01/04/17 11:15 02/03/17 11:14 Multivitamins (Multivitamin Tab) 1 tab QAM PO 01/05/17 09:00 02/04/17 08:59 01/05/17 08:56 1 TAB Ondansetron HCl (Zofran Inj) 4 mg Q6H PRN IV 01/04/17 11:15 02/03/17 11:14 Ferrous Gluconate (Ferrous Gluconate Tab) 324 mg TIDM PO 01/04/17 17:45 02/03/17 17:44 01/05/17 08:23 324 MG Miscellaneous Information (Order Awaiting Action) 1 ea QS N/A 01/04/17 16:00 02/03/17 15:59 Hydralazine HCl (HydrALAZINE INJ) 10 mg Q6H PRN IV. 01/04/17 14:00 02/03/17 13:59 Menthol (Nice Real) 1 real PRN PRN PO 01/04/17 23:00 02/03/17 22:59 (Freda Castellanos, PA-C) Objective Vital Signs Date Time Temp Pulse Resp B/P Pulse Ox O2 Delivery O2 Flow Rate FiO2 01/05/17 07:05 36.5 66 15 106/67 98 Room Air 01/05/17 03:21 36.4 65 14 99/60 97 Room Air 01/05/17 00:15 Room Air 01/04/17 23:30 36.7 66 16 128/80 97 Room Air 01/04/17 22:48 66 120/78 01/04/17 15:20 Room Air 01/04/17 15:15 36.2 56 15 108/70 94 Room Air 01/04/17 14:18 54 20 101/66 99 Nasal Cannula 2.0 01/04/17 13:13 47 16 103/66 100 Nasal Cannula 2.0 01/04/17 12:45 64 15 107/66 97 01/04/17 12:15 96 Nasal Cannula 2.0 01/04/17 12:15 36.5 67 14 105/67 96 Nasal Cannula 2.0 01/04/17 12:15 96 Nasal Cannula 2.0 01/04/17 12:03 66 17 98 01/04/17 12:03 66 17 01/04/17 12:00 36.5 70 19 115/73 98 Nasal Cannula 2 01/04/17 12:00 115/73 01/04/17 11:58 67 14 01/04/17 11:58 71 14 98 01/04/17 11:55 101/73 01/04/17 11:53 62 16 01/04/17 11:53 64 16 97 01/04/17 11:50 107/61 01/04/17 11:48 65 15 01/04/17 11:48 63 15 97 01/04/17 11:47 70 14 01/04/17 11:47 69 14 98 01/04/17 11:45 109/60 01/04/17 11:42 71 17 96 01/04/17 11:42 72 17 01/04/17 11:40 108/69 01/04/17 11:37 64 14 91 01/04/17 11:37 67 14 01/04/17 11:35 110/68 01/04/17 11:32 69 15 92 01/04/17 11:32 66 15 01/04/17 11:30 123/76 01/04/17 11:27 70 14 99 01/04/17 11:27 68 14 01/04/17 11:25 129/67 01/04/17 11:22 65 17 01/04/17 11:22 65 17 99 01/04/17 11:20 129/88 01/04/17 11:17 79 16 01/04/17 11:17 86 16 99 01/04/17 11:15 138/87 01/04/17 11:12 84 17 01/04/17 11:12 81 17 99 01/04/17 11:10 138/96 01/04/17 11:09 144/91 01/04/17 11:09 36.5 84 16 144/91 100 Mask 10 01/04/17 11:07 99 23 168/114 99 168/114 01/04/17 11:07 91 23 168/114 168/114 (Freda Castellanos ., PA-C) Physical Exam General Appearance: no apparent distress Eyes: normal inspection, PERRL ENT: hearing grossly normal Neck: supple Respiratory/Chest: lungs clear, no respiratory distress, no accessory muscle use Cardiovascular: regular rate, rhythm Abdomen: normal bowel sounds, non tender, + distended Extremities: no pedal edema, + pertinent finding (TEDs on; LLE in JAIMIE bandage ) Neurologic/Psychiatric: alert, normal mood/affect, oriented x 3 Skin: normal color, warm/dry, no rash (Freda Castellanos, PA-C) Laboratory Results Last 24 Hours Test 01/05/17 05:50 White Blood Count 15.09 K/uL Red Blood Count 3.54 M/uL Hemoglobin 9.9 g/dL Hematocrit 29.6 % Mean Corpuscular Volume 83.6 fL Mean Corpuscular Hemoglobin 28.0 pg Mean Corpuscular Hemoglobin Concent 33.4 g/dl RDW Standard Deviation 64.5 fL RDW Coefficient of Variation 21.1 % Platelet Count 165 K/uL Mean Platelet Volume 10.7 fL Sodium Level 134 mmol/L Potassium Level 4.0 mmol/L Chloride Level 100 mmol/L Carbon Dioxide Level 26 mmol/L Anion Gap 8.0 mmol/L Blood Urea Nitrogen 20 mg/dl Creatinine 0.95 mg/dl Est Creatinine Clear Calc Drug Dose 88.6 ml/min Estimated GFR () 96.3 Estimated GFR (Non- 83.1 BUN/Creatinine Ratio 21.1 Random Glucose 191 mg/dl Calcium Level 8.8 mg/dl (Freda Castellanos, PA-C) Assessment and Plan Patient is a 66 y/o male, with PMHx of A.fib, CAD, Diastolic CHF, HTN, Hypercholesterolemia, Pulmonary HTN, GERD, Gout, and Anemia, s/p Left Total Knee Arthroplasty; Excision Prepatellar Bursa Right Knee by Dr. Alex on 01/04. - Surgical management, PT/OT, pain management, and DVT prophylaxis as per primary team - Follow CBC due to drop in hgb Hyperglycemia, likely secondary to IV steroids/postop response: ha1c 12/21/16- 5.6% A.fib/CAD/Diastolic CHF: - Continue Amiodarone, ASA, Diltiazem, Lopressor - Xarelto continued as per surgical team - Lasix held due recovering volume status postop- resume at discharge HTN: - Lisinopril- BPs low-normal- resume at discharge - Hydralazine IV PRN Hypercholesterolemia: Continue Lipitor h/o pulmonary HTN- noted h/o gout: Continue Allopurinol Anemia: Continue iron and b12 supplement GERD: Continue Protonix daily GI Prophylaxis: Maalox PRN, IV Zofran PRN, Colace and/or Milk of Mag PRN DVT prophylaxis: As per primary team Code Status: LEVEL I, FULL Dispo: Discharge as per primary team Thank you for this consultation. We will continue to follow. (Freda Castellanos ., PA-C) PA Physician Supervision Note: I interviewed and examined the patient. Discussed with Freda MUHAMMAD and agree with findings and plan as documented in the note. Any exceptions or clarifications are listed here: None Pt with stable afib and left TKA doing well vitals stable car is regular(although h/o afib) lungs are clear continued medical oversight for cardiac issues, anticipate discharge if no issues this weekend Documented By: Costa Velázquez (Costa Velázquez M.D.)
[2017-01-05] MEDS: METOPROLOL TARTRATE 100 MG TAB PO SCH ×2 (08:55→20:55)
[2017-01-05] MEDS: MULTIVITAMIN TAB PO SCH (08:56)
[2017-01-05] MEDS: ALLOPURINOL 100 MG TAB PO SCH (08:56)
[2017-01-05] MEDS: DILTIAZEM HCL (TIAzac) 180 MG CAPCR PO SCH (08:56)
--- NOTE | 2017-01-05 08:56 | Anesthesiology Progress Note ---
Anesthesia Post Op Note Date & Time January 05, 2017 at 08:55 Vital Signs Vital Signs Past 12 Hours Date Time Temp Pulse Resp B/P Pulse Ox O2 Delivery O2 Flow Rate FiO2 01/05/17 07:05 36.5 66 15 106/67 98 Room Air 01/05/17 03:21 36.4 65 14 99/60 97 Room Air 01/05/17 00:15 Room Air 01/04/17 23:30 36.7 66 16 128/80 97 Room Air 01/04/17 22:48 66 120/78 Notes Mental Status: alert / awake / arousable, participated in evaluation Pt Amnestic to Procedure: Yes Nausea / Vomiting: adequately controlled Pain: adequately controlled Airway Patency, RR, SpO2: stable & adequate BP & HR: stable & adequate Hydration State: stable & adequate Anesthetic Complications: no major complications apparent
[2017-01-05] MEDS ORDERED: NON-FORMULARY MEDICATION (Potassium Gluconate 595 MG) PO SCH (09:00)
[2017-01-05] MEDS ORDERED: LISINOPRIL 5 MG TAB PO SCH (09:00)
[2017-01-05 10:35] VITALS: BP 125/75; PULSE 67; TEMP 36.6; O2SAT 98
[2017-01-05 15:30] VITALS: O2SAT 98
[2017-01-05 15:31] VITALS: BP 137/79; PULSE 69; TEMP 36.4; O2SAT 99
[2017-01-05] MEDS: OXYCODONE HCL IR 5 MG TAB (IMMEDIATE RELEASE) PO PRN (15:34)
[2017-01-05] MEDS ORDERED: RIVAROXABAN 10 MG TAB PO SCH (17:45)
[2017-01-05] MEDS: PANTOprazole SOD 40 MG TAB PO SCH (20:55)
[2017-01-05] MEDS: ATORVASTATIN 20 MG TAB PO SCH (20:56)
[2017-01-05] MEDS: SENNA 8.6 MG TAB PO SCH (20:56)
[2017-01-05 23:41] VITALS: BP 155/82; PULSE 71; TEMP 36.5; O2SAT 98
[2017-01-06] MEDS: OXYCODONE HCL IR 5 MG TAB (IMMEDIATE RELEASE) PO PRN ×2 (00:01→06:05)
[2017-01-06 06:25] VITALS: BP 124/74; PULSE 67; TEMP 36.4; O2SAT 99
[2017-01-06 06:27] LABS: HEMATOCRIT 27.4 % (42-52); MEAN CELL VOLUME 85.6 fL (80-100); MEAN CORPUSCULAR HEMOGLOBIN 28.1 pg (25-34); MEAN CORPUSCULAR HGB CONC 32.8 g/dl (32-36); MEAN PLATELET VOLUME 11.4 fL (7.4-10.4); PLATELET COUNT 163 K/uL (130-400); WHITE BLOOD COUNT 6.83 K/uL (4.8-10.8)
--- NOTE | 2017-01-06 07:55 | Orthopedic Progress Note ---
Orthopedic Progress Note Date of Service January 06, 2017. Subjective Post OP Day: 2 Reports: feeling well, pain controlled w PO medications, Denies: SOB, calf pain , chest pain, complaints, light headedness, nausea / vomiting Additional Notes: Patient states that he is feeling well. His pain is controlled with PO pain medications. Objective calves soft nontender, capillary refill less than 2 sec., dressing C/D/I, A&O x3 , toes mobile Date Time Temp Pulse Resp B/P Pulse Ox O2 Delivery O2 Flow Rate FiO2 01/06/17 06:25 36.4 67 18 124/74 99 Room Air 01/05/17 23:50 Room Air 01/05/17 23:41 36.5 71 16 155/82 98 Room Air 01/05/17 15:31 36.4 69 16 137/79 99 Room Air 01/05/17 15:30 98 Room Air 01/05/17 10:35 36.6 67 16 125/75 98 01/05/17 08:00 Room Air Laboratory Results 24 Hours: Test 01/06/17 06:06 Hematocrit 27.4 % Hemoglobin 9.0 g/dL Assessment & Plan Assessment: 66 yo male stable POD #2 s/p right knee prepatellar bursectomy and left TKA Plan: 1. Med management 2. DVT prophylaxis- will resume NOREEN Adamss, SCDs 3. PT/OT 4. D/C planning- home w/ HH Inhouse Planning Pain Management: Oxycontin, Oxy IR DVT Prophylaxis: Xarelto Discharge Planning Discharge Planning: home with home health Pain Management: Oxycontin, Oxy IR DVT Prophylaxis: Xarelto Therapy: Physical Therapy
[2017-01-06] MEDS ORDERED: RXC5 PO (07:58)
[2017-01-06] MEDS ORDERED: OXYSR10 PO (07:58)
[2017-01-06] MEDS: ACETAMINOPHEN 500 MG TAB PO SCH (08:00)
[2017-01-06] MEDS: FERROUS GLUCONATE 324 MG TAB PO SCH (08:00)
[2017-01-06] MEDS: AMIODARONE 200 MG TAB PO SCH (08:01)
[2017-01-06] MEDS: DOCUSATE SODIUM 100 MG CAP PO SCH ×2 (08:01→08:07)
[2017-01-06] MEDS: MULTIVITAMIN TAB PO SCH (08:02)
[2017-01-06] MEDS: METOPROLOL TARTRATE 100 MG TAB PO SCH (08:02)
[2017-01-06] MEDS: GABAPENTIN 400 MG CAP PO SCH (08:03)
[2017-01-06] MEDS: OXYCODONE HCL 10 MG TABCR (OXYCONTIN) PO SCH (08:03)
[2017-01-06] MEDS: DILTIAZEM HCL (TIAzac) 180 MG CAPCR PO SCH (08:03)
[2017-01-06] MEDS: ALLOPURINOL 100 MG TAB PO SCH (08:04)
[2017-01-06] MEDS: CYANOCOBALAMIN 500 MCG TAB (VIT B-12) PO SCH (08:04)
--- NOTE | 2017-01-06 08:04 | Discharge Instructions ---
Discharge Instructions Date of Service January 06, 2017. Admission Reason for Admission: Left Knee Djd, Right Knee Prepatellar Bursa Discharge Discharge Diagnosis / Problem: S/P left TKA, Right knee prepatellar bursectomy Discharge Goals Goal(s): Decrease discomfort, Improve function Activity Recommendations Activity Limitations: per Instructions/Follow-up section . Instructions / Follow-Up Instructions / Follow-Up ACTIVITY RECOMMENDATIONS: SELF CARE INSTRUCTIONS AFTER TOTAL KNEE REPLACEMENT A. You may need to continue a physical therapy program after discharge from the hospital. There are several options available to you. Your doctor will assist you in selecting the best one for you. 1. An out-patient facility 2 to 3 times a week for therapy or home therapy. 2. Continue working on all exercises taught to you in the hospital. Your goals should be to increase bending of your knee to 90 degrees and beyond and to fully straighten your knee. B. You may progress at your own pace from walking with a walker or crutches to a cane; then to no assistive devices. C. Make walking a part of your daily routine. Be up as much as comfortable with rest periods throughout the day. Rest with leg elevation is very important. Use the ice wrap frequently for the first 3-4 weeks. D. There are no restrictions on activities. You may ride in a car, shop, participate in cleaner assistant and all social activities. E. Wear the long elastic stockings (NOREEN hose) 20 hours a day for 2 weeks after surgery. They can be removed several times a day for laundering and for a bath. F. You may shower, no tub baths until cleared by your doctor. SPECIAL CARE INSTRUCTIONS: VERY IMPORTANT TO READ AND REVIEW A. There are a few signs you need to watch for after you are home. Call [facility] if you notice any of the followin. Increased severe knee pain. Some pain is expected especially when you exercise. 2. Increased swelling in your leg or knee; pain or swelling of the calf muscle in either lower leg. 3. Any fluid drainage from the incision. 4. Shortness of breath or chest pain. B. Please call [facility] at if you have any concerns or questions about your operation or recovery. The doctor or his nurse will return your call promptly. C. You must take antibiotics before dental work, bladder, bowel or other surgery. Your doctor will provide you with a permanent care to carry describing this precaution. IMPORTANT: * REMEMBER TO TAKE ASPIRIN, 81 MG, TWICE DAILY FOR 4 WEEKS UNLESS OTHERWISE DIRECTED. THIS IS YOUR BLOOD THINNER. * HIGH RISK PATIENTS MAY BE PRESCRIBED A STRONGER BLOOD THINNER. THIS WILL BE PROVIDED AT DISCHARGE. * CALL IF INCREASED PAIN, REDNESS, DRAINAGE OR FEVER GREATER THAT 101. * WEAR NOREEN HOSE 20 HOURS PER DAY FOR 2 WEEKS. * YOU MAY HAVE A LARGE BAND-AID LIKE DRESSING (SILVERON). THIS WILL REMAIN ON YOUR INCISION FOR 7 DAYS, THEN CAN BE REMOVED. IF INCISION IS LEAKING THROUGH DRESSING, CALL THE OFFICE . FOLLOW UP VISIT: If appointment is not already scheduled: Please call [facility] to make a follow-up appointment for 2 weeks after your surgery at . Current Hospital Diet Patient's current hospital diet: AHA Diet (Heart Healthy) Discharge Diet Recommended Diet: Regular Diet Procedures Procedures Performed: Left Total Knee Arthroplasty; Excision Prepatellar Bursa Right Knee Pending Studies Studies pending at discharge: no Laboratory Results Hemoglobin A1c Test 12/21/16 11:08 Range/Units Estimated Average Glucose 114 mg/dl Hemoglobin A1c 5.6 4.5-5.6 % Medical Emergencies . Who to Call and When: Medical Emergencies: If at any time you feel your situation is an emergency, please call 911 immediately. . Non-Emergent Contact Non-Emergency issues call your: Surgeon Call Non-Emergent contact if: temperature is above 101.5, your pain is worsening, wound has increased drainage, wound has increased redness . "Provider Documentation" section prepared by Martin Lambert. . VTE Core Measure Inpt VTE Proph given/why not?: Other Anticoagulation (Xaralto) [place] Drug Monitoring Program Search Results: patient reviewed within database, no issues identified
[2017-01-06 09:59] VITALS: BP 124/74; PULSE 67; TEMP 36.4; O2SAT 99
--- NOTE | 2017-01-10 15:30 | Discharge Summary ---
Orthopedic Discharge Summary Admission Date/Reason January 04, 2017 at 08:56 Left Knee Djd, Right Knee Prepatellar Bursa. Discharge Date/Disposition January 06, 2017 Home with services Diagnosis Principal Diagnosis: Left Knee Djd; Right Knee Prepatellar Bursitis Secondary Diagnoses/Problems: : Atrial fibrillation, coronary artery disease, diastolic congestive heart failure, hypertension, hypercholesterolemia, pulmonary hypertension, mitral regurgitation, esophageal reflux, gout. Procedure(s) Performed Left TKA; Right Prepatellar Bursectomy Consultations Freda Castellanos PA-C/ Sean Herrera MD Medication Reconciliation New Medications: Oxycodone HCl (Oxycodone HCl) 5 Mg Tab 1-2 TABS PO Q4H, #60 Oxycodone HCl (Oxycontin) 10 Mg Tabcr 1 TAB PO Q12, #20 Continued Medications: Allopurinol (Allopurinol) 100 Mg Tab 100 MG PO QAM Amiodarone Hcl (Cordarone) 200 Mg Tab 200 MG PO QAM, TAB Amoxicillin (Amoxicillin) 500 Mg Cap 4 CAP PO UD 1 HOUR PRIOR TO DENTAL APPOINTMENT Aspirin (Aspirin Ec) 81 Mg Tab 81 MG PO QAM Atorvastatin Calcium (Lipitor) 80 Mg Tab 40 MG PO HS, TAB Cyanocobalamin (Vitamin B12) 1,000 Mcg Tab 1000 MCG PO noon Cyanocobalamin (Vitamin B12) 1,000 Mcg Tab 1 TAB PO QAM Diltiazem Hcl Ext Rel (Tiazac) 180 Mg Capcr 180 MG PO QAM, CAP Ferrous Sulfate (Kp Ferrous Sulfate) 325 Mg Tab 1 TAB PO QAM for 30 Days, #30 TAB 3 Refills Furosemide (Lasix) 40 Mg Tab 40 MG PO Q12, TAB Gabapentin (Neurontin) 400 Mg Cap 800 MG PO BID, CAP Krill Oil (Megared [place]-3 Krill Oil 500 mg) 1 Cap Cap 1 CAP PO noon Lisinopril (Lisinopril) 5 Mg Tab 5 MG PO QAM Metoprolol Tartrate (Lopressor) (Lopressor) 100 Mg Tab 100 MG PO BID, TAB Multiple Vitamins W/ Minerals (Centrum Adults) 1 Tab Tab 1 TAB PO QAM Pantoprazole (Protonix) 40 Mg Tab 40 MG PO QPM, #30 TAB Potassium Gluconate (Potassium Gluconate) 595 Mg Tab 595 MG PO QAM Probiotic Product (Probiotic) 1 Cap Cap 1 CAP PO BID Rivaroxaban (Xarelto) 10 Mg Tab 20 TAB PO QPM for 7 Days, TAB Tadalafil (Cialis) 10 Mg Tab 5 MG PO QAM, TAB Discontinued Medications: Hydrocodone/Acetaminophen 5MG/325MG ([place] 5MG/325MG) Tab 1 TABLET PO Q4 PRN for Pain, TAB PRN PAIN Tramadol (Ultram) 50 Mg Tab 50 MG PO BID PRN for Pain, TAB Admission Physical Exam As per Admitting History & Physical. Hospital Course The Patient had an uneventful hospital course. Labs remained stable- lowest hemoglobin recorded: 9.0 . Pain controlled on oral medications. Participated in PT with ambulation distance of 200 feet. ROM of operative knee reached 103 degrees. Drainage output totaled 1350 cc prior to discontinuation. Patient did not have a reported bowel movement. Incisions of left and right knees remained clean/dry/intact. DVT prophylaxis with Xarelto 20mg daily/Mata stockings. Patient discharged home with Home Health Services in stable condition. Please refer to daily progress notes for further details Discharge Instructions Please refer to the electronic Patient Visit Report (Discharge Instructions) for additional information.
[2017-01-21] MEDS ORDERED: FERR1TAB13 PO (09:09)
[2017-01-21] MEDS ORDERED: MISCCAP80 PO (09:09)
[2017-01-21] MEDS ORDERED: TADA10TA PO (09:09)
[2017-01-21] MEDS ORDERED: CYAN100020 PO (10:11)
[2017-01-21] MEDS ORDERED: XRL10 PO (10:11)
[2017-03-21] MEDS ORDERED: ASPI81TA28 PO (09:09)
[2017-03-21] MEDS ORDERED: DILT-113 PO (09:09)
[2017-03-21] MEDS ORDERED: KRIL1CAP18 PO (09:09)
[2017-03-21] MEDS ORDERED: MULT-610 PO (09:09)
[2017-03-21] MEDS ORDERED: CYAN100020 PO (09:09)
[2017-03-21] MEDS ORDERED: METO100T14 PO (09:09)
[2017-03-21] MEDS ORDERED: PANT40TA PO (10:11)
[2017-03-21] MEDS ORDERED: AMIO200T4 PO (10:11)
[2017-03-21] MEDS ORDERED: ALL100 PO (15:23)
[2017-03-21] MEDS ORDERED: LSN5 PO (15:23)
[2017-03-21] MEDS ORDERED: GABA1CAP5 PO (15:23)
[2017-03-21] MEDS ORDERED: ATOR80TA PO (15:23)
[2017-03-21] MEDS ORDERED: POTA1TAB PO (15:23)
[2017-03-21] MEDS ORDERED: AMX500 PO (15:23)
[2017-03-21] MEDS ORDERED: FURO40TA3 PO (15:23)
[2017-03-21] MEDS ORDERED: FERR1TAB62 PO (19:15)
[2017-03-21] MEDS ORDERED: OXYC-738 PO (19:19)
== END 2017-01-06 12:05 | disposition home health service (06) | DRG 470 ==
LOC: ENRESERVTM → ENRESERVDT → C.ACU 07:58 → C.3E 08:56
PROC: 0SRD0J9 Replacement of Left Knee Joint with Synthetic Substitute, Cemented, Open Approach (ICD-10-PCS; principal; 2017-01-04 09:30)
PROC: 0JBP0ZX Excision of Left Lower Leg Subcutaneous Tissue and Fascia, Open Approach, Diagnostic (ICD-10-PCS; principal; 2017-01-04 09:30)
DX: M17.12 Unilateral primary osteoarthritis, left knee (principal); I50.30 Unspecified diastolic (congestive) heart failure; M70.41 Prepatellar bursitis, right knee; L72.0 Epidermal cyst; I48.91 Unspecified atrial fibrillation; I25.10 Atherosclerotic heart disease of native coronary artery without angina pectoris; I10 Essential (primary) hypertension; K21.9 Gastro-esophageal reflux disease without esophagitis; I34.0 Nonrheumatic mitral (valve) insufficiency; M1A.9XX0 Chronic gout, unspecified, without tophus (tophi); E78.00 Pure hypercholesterolemia, unspecified; I27.2 Other secondary pulmonary hypertension

== ENCOUNTER 2017-01-21 19:41 | Inpatient (IN) | payer OTHER ==
[~2017-01-21] VITALS: Ht 177.8 cm; Wt 91.7 kg
[~2017-01-21 19:41] MED LIST changes: -ACETAMINOPHEN 500 MG TAB PO SCH; -BUPIVACAINE 0.25% 30 ML VIAL ONE; -BUPIVACAINE 0.5 % 5 MG/1 ML PF 10ML VIAL ONE; -CEFAZOLIN 2000 MG/60 ML D5W 60 ML IV SCH; +CYAN100020 PO; -CeleBREX 200 MG CAP PO SCH; -DEXAMETHASONE 4 MG TAB PO SCH; -FAMOTIDINE 20 MG TAB PO SCH; -FENTANYL CITRATE INJ 50 MCG/1 ML 2 ML VIAL ONE; +FERR1TAB13 PO; -GABAPENTIN 300 MG CAP PO SCH; -HYDR-5688 PO; -LACTATED RINGER'S 1000ML 1,000 ML IV SCH; -LACTATED RINGER'S 1000ML 500 ML IV ONE; -LACTATED RINGER'S 1000ML IV SCH; -LIDOCAINE HCL 2% 2 ML VIAL (20MG/ML) ONE; -METOCLOPRAMIDE HCL 10 MG TAB PO SCH; -MIDAZOLAM HCL 1 MG/ML 2ML VIAL ONE; +MISCCAP80 PO; +OXYSR10 PO; -PROPOFOL IV EMULSION 10 MG/ML 20 ML VIAL IV ONE; -ROPIVACAINE 5MG/ML 30 ML 150 MG, BUPIVACAINE/EPINEPHR 0.5% MPF 30 ML, KETOROLAC TROMETH... INFIL SCH; +RXC5 PO; -SILD100T PO; +TADA10TA PO; -TRAM-10 PO; +XRL10 PO
[2017-01-21] MEDS ORDERED: VANCOMYCIN INJ 1,000 MG in SODIUM CHLORIDE 0.9% 250ML 250 ML IV STA (20:07)
--- NOTE | 2017-01-21 20:07 | EMERGENCY ROOM VISIT NOTE ---
ED Visit Note First contact with patient: 19:58 Staff note: I have reviewed the Patients chart and have discussed this case with my PA. I generally agree with the ED note and findings.
[2017-01-21 20:21] LABS: BASO % 0.6 %; BASO ABS # 0.06 K/uL (0-0.2); EOS % 2.7 %; HEMATOCRIT 23.8 % (42-52); IG% 0.2 %; LYMPH % 20.1 %; LYMPH ABS # 2.06 K/uL (1.2-3.4); MEAN CELL VOLUME 89.5 fL (80-100); MEAN CORPUSCULAR HEMOGLOBIN 26.7 pg (25-34); MEAN CORPUSCULAR HGB CONC 29.8 g/dl (32-36); MEAN PLATELET VOLUME 10.5 fL (7.4-10.4); MONO % 8.4 %; PLATELET COUNT 507 K/uL (130-400); RED BLOOD COUNT 2.66 M/uL (4.7-6.1); WHITE BLOOD COUNT 10.24 K/uL (4.8-10.8)
[2017-01-21] MEDS ORDERED: VANCOMYCIN 1GM/270ML NSS ONE (20:24)
--- NOTE | 2017-01-21 20:31 | DIAGNOSTIC IMAGING REPORT ---
LEFT KNEE 3 VIEWS HISTORY: L KNEE WOUND DEHISCENCE COMPARISON: Left knee 01/04/2017. FINDINGS: There is no fracture or dislocation. Left total knee arthroplasty. The hardware appears intact. Small knee effusion and anterior soft tissue swelling. There is also evidence for dehiscence of the midline anterior skin incision No radiopaque foreign bodies. IMPRESSION: 1. No fractures. 2. Small knee effusion and anterior soft tissue swelling. There is also soft tissue gas within the anterior midline of the knee consistent with dehiscence of the incision. Electronically signed by: Lawson Anderson M.D. 01/21/2017 8:30 PM Dictated Date/Time: 01/21/2017 8:28 PM
[2017-01-21 20:38] LABS: BUN/CREATININE RATIO 16.4 (10-20); CALCIUM 8.5 mg/dl (8.5-10.1); CREATININE 1.2 mg/dl (0.60-1.40); POTASSIUM 3.5 mmol/L (3.5-5.1)
--- NOTE | 2017-01-21 20:38 | EMERGENCY ROOM VISIT NOTE ---
History First contact with patient: 19:58 Chief Complaint: KNEEPAIN Stated Complaint: FALL, LEFT KNEE INJURY, POSTOP History of Present Illness The patient is a 66 year old male who presents to the Emergency Room with complaints of a surgical wound opening of his left knee. The patient reports that he was walking down steps and tripped, falling onto the ground. The patient denies any significant pain. He denies any other injuries, including head injury, neck pain, back pain, upper extremity or right lower extremity pain. Tetanus immunization is up-to-date. The patient's primary totally arthroplasty was performed on 01/04/[address] Alex. Review of Systems 10 system review was performed and was negative except for pertinent positives and negatives as indicated in history of present illness Past Medical/Surgical History Medical Problems: (1) Acute systolic heart failure (2) Atrial fibrillation with RVR (3) Carpal tunnel syndrome (4) Left knee DJD (5) No active medical problems (6) Wound disruption Social History Smoking Status: Never Smoker Alcohol Use: occasionally Drug Use: none Marital Status: single Occupation Status: retired Current/Historical Medications Scheduled Allopurinol (Allopurinol), 100 MG PO QAM Amiodarone Hcl (Cordarone), 200 MG PO QAM Aspirin (Aspirin Ec), 81 MG PO QAM Atorvastatin Calcium (Lipitor), 40 MG PO HS Cyanocobalamin (Vitamin B12), 1,000 MCG PO QD@1200 Cyanocobalamin (Vitamin B12), 1,000 MCG PO QAM Diltiazem Hcl Ext Rel (Tiazac), 180 MG PO QAM Ferrous Sulfate (Kp Ferrous Sulfate), 325 MG PO QAM Furosemide (Lasix), 40 MG PO Q12 Gabapentin (Neurontin), 800 MG PO BID Krill Oil (Megared Mcdonough-3 Krill Oil 500 mg), 1 CAP PO QD@1200 Lisinopril (Lisinopril), 5 MG PO QAM Metoprolol Tartrate (Lopressor) (Lopressor), 100 MG PO BID Multiple Vitamins W/ Minerals (Centrum Adults), 1 TAB PO QAM Oxycodone HCl (Oxycodone HCl), 1-2 TABS PO Q4H Oxycodone HCl (Oxycontin), 1 TAB PO Q12 Pantoprazole (Protonix), 40 MG PO QPM Potassium Gluconate (Potassium Gluconate), 595 MG PO QAM Probiotic Product (Probiotic), 1 CAP PO BID Rivaroxaban (Xarelto), 20 MG PO QPM Tadalafil (Cialis), 5 MG PO QAM Scheduled PRN Amoxicillin (Amoxicillin), 2,000 MG PO UD PRN for Pretreat-Prior to Dental Work Allergies Coded Allergies: No Known Allergies (Unverified , 01/04/17) Physical Exam Vital Signs Date Time Temp Pulse Resp B/P Pulse Ox O2 Delivery O2 Flow Rate FiO2 01/21/17 19:45 36.4 56 18 101/57 99 Room Air Physical Exam CONSTITUTIONAL: Healthy and well nourished. Alert and oriented X 3 with positive affect. Patient does not appear in any acute distress. HEENT: Normocephalic, atraumatic. Pupils equal, round and reactive. NECK: Full active range of motion without discomfort. RESPIRATORY: Clear to auscultation bilaterally with no wheezing, crackles, rhonchi or stridor. CARDIOVASCULAR: Regular rate and rhythm with no murmurs, rubs or gallops. GASTROINTESTINAL: Bowel sounds present in all quadrants. Soft and nontender to palpation. MUSCULOSKELETAL: Examination shows total wound dehiscence of the left knee surgical incision. No soft tissue loss or active bleeding noted. Collateral ligaments are intact. The patient has no tenderness to palpation through the thigh, leg or ankle. Negative logroll. Pedal pulses are intact. INTEGUMENTARY: No rash or other significant dermatologic conditions noted. NEUROLOGIC: Left lower extremity is sensory intact. Medical Decision & Procedures ER Provider Diagnostic Interpretation: My interpretation of a left knee x-ray does not show any joint dislocation or periprosthetic fracture. No radiopaque foreign bodies noted. Radiologist report is as follows: LEFT KNEE 3 VIEWS HISTORY: L KNEE WOUND DEHISCENCE COMPARISON: Left knee 01/04/2017. FINDINGS: There is no fracture or dislocation. Left total knee arthroplasty. The hardware appears intact. Small knee effusion and anterior soft tissue swelling. There is also evidence for dehiscence of the midline anterior skin incision No radiopaque foreign bodies. IMPRESSION: 1. No fractures. 2. Small knee effusion and anterior soft tissue swelling. There is also soft tissue gas within the anterior midline of the knee consistent with dehiscence of the incision. Laboratory Results 01/21/17 20:10 Test 01/21/17 20:10 Immature Granulocyte % (Auto) 0.2 % White Blood Count 10.24 K/uL (4.8-10.8) Red Blood Count 2.66 M/uL (4.7-6.1) Hemoglobin 7.1 g/dL (14.0-18.0) Hematocrit 23.8 % (42-52) Mean Corpuscular Volume 89.5 fL (80-100) Mean Corpuscular Hemoglobin 26.7 pg (25-34) Mean Corpuscular Hemoglobin Concent 29.8 g/dl (32-36) Platelet Count 507 K/uL (130-400) Mean Platelet Volume 10.5 fL (7.4-10.4) Neutrophils (%) (Auto) 68.0 % Lymphocytes (%) (Auto) 20.1 % Monocytes (%) (Auto) 8.4 % Eosinophils (%) (Auto) 2.7 % Basophils (%) (Auto) 0.6 % Neutrophils # (Auto) 6.96 K/uL (1.4-6.5) Lymphocytes # (Auto) 2.06 K/uL (1.2-3.4) Monocytes # (Auto) 0.86 K/uL (0.11-0.59) Eosinophils # (Auto) 0.28 K/uL (0-0.5) Basophils # (Auto) 0.06 K/uL (0-0.2) Immature Granulocyte # (Auto) 0.02 K/uL (0.00-0.02) Polychromasia 1+ Hypochromasia PRESENT Anisocytosis PRESENT Microcytosis PRESENT Tear Drop Cells 1+ Anion Gap 10.0 mmol/L (3-11) Est Creatinine Clear Calc Drug Dose 69.0 ml/min Estimated GFR () 72.6 Estimated GFR (Non- 62.6 BUN/Creatinine Ratio 16.4 (10-20) Calcium Level 8.5 mg/dl (8.5-10.1) The above labs were reviewed.. Hemoglobin is 7.1 and hematocrit 23.8, respectively. Medications Administered Medications (Trade) Dose Ordered Sig/Briana Route Start Time Stop Time Status Last Admin Dose Admin Vancomycin HCl (Vancomycin 1gm/ 270ml Nss) 1 gm STK-MED ONCE .ROUTE 01/21/17 20:24 01/21/17 20:25 DC 01/21/17 20:26 1 GM Procedure 1. IV antibiotics: Vancomycin 1 g IV infusion was initiated in the emergency department 2. Wound closure was performed by me after the patient provided verbal consent , and at the request of Dr. Abreu. Using buffered 1% lidocaine without epinephrine, good local anesthesia was administered to the periphery of the wound. The wound was then approximated with yanique. Adaptic dressing, Kerlix gauze and a knee immobilizer were applied. Total laceration/incision length was 16 cm. ED Course Patient history and physical exam were performed. Nurse's notes were reviewed. Vital signs were reviewed and were normal. Saline gauze was applied to the wound after examination. IV access was established, and labs were drawn. X- rays of the left knee were performed to show no evidence for joint dislocation or periprosthetic fractures. Review of labs shows no leukocytosis. The patient is anemic with a hemoglobin of 7.1. The case was discussed with Dr. Chavez, ED attending physician. The case was also discussed with Dr. Abreu, [facility] surgeon for further surgical management. Please see his dictation for further treatment and final disposition. The patient denied any pain and refused any analgesics. Dr. Abreu did reapproach me and requested wound closure as surgery will have to be delayed because the patient just ate dinner approximately 2 hours prior to arrival, and will also need hospitalist preoperative clearance given his current anemia and medical history. The wound was grossly approximated with yanique under local anesthesia. A dressing and knee immobilizer were applied prior to admission. Impression Primary Impression: Surgical wound dehiscence Additional Impressions: Status post left knee replacement Fall from slip, trip, or stumble Departure Information Referrals Lopez Guerrero M.D. (PCP) Patient Instructions My [facility] Problem Qualifiers Primary Impression: Surgical wound dehiscence Encounter type: initial encounter Qualified Codes: T81.31XA - Disruption of external operation (surgical) wound, not elsewhere classified, initial encounter Additional Impressions: Fall from slip, trip, or stumble Encounter type: initial encounter Qualified Codes: W01.0XXA - Fall on same level from slipping, tripping and stumbling without subsequent striking against object, initial encounter
[2017-01-21 20:39] LABS: ANISOCYTOSIS PRESENT; COMPLETE YES; HYPOCHROMIA PRESENT; MICROCYTOSIS PRESENT; POLYCHROMASIA 1+; TEAR DROP CELLS 1+
[2017-01-21] MEDS ORDERED: KRILL OIL PO SCH (21:00)
[2017-01-21] MEDS ORDERED: XYLOCAINE 1%/SOD BICARB 20 ML VIAL INFIL ONE (21:09)
[2017-01-21 21:42] LABS: HEMATOCRIT 22.4 % (42-52); MEAN CELL VOLUME 88.9 fL (80-100); MEAN CORPUSCULAR HGB CONC 30.4 g/dl (32-36); MEAN PLATELET VOLUME 9.7 fL (7.4-10.4); PLATELET COUNT 429 K/uL (130-400); RED BLOOD COUNT 2.52 M/uL (4.7-6.1); WHITE BLOOD COUNT 9.87 K/uL (4.8-10.8)
--- NOTE | 2017-01-21 21:44 | HISTORY & PHYSICAL EXAMINATION ---
DATE OF ADMISSION: 01/21/2017 CHIEF COMPLAINT: Left knee wound. HISTORY OF PRESENT ILLNESS: The patient is a 66-year-old male who approximately 7-8 days ago underwent a left total knee arthroplasty per Dr. Alex. He sustained a fall on to the left knee. He had immediate opening dehiscence of his wound. He presented to the Emergency Room for further evaluation and treatment. He currently states he is not really having a lot of pain in the knee, complaining of the open wound. PAST MEDICAL HISTORY: AFib, coronary artery disease, congestive heart failure, hypertension, hyperlipidemia, pulmonary hypertension, mitral regurg, reflux, and gout. PAST SURGICAL HISTORY: Bilateral total knee arthroplasty, cardiac catheterization. MEDICATIONS: Amiodarone, furosemide, pantoprazole, allopurinol, aspirin, Centrum, fish oil, potassium, tramadol, calcium, iron, diltiazem, lisinopril, metoprolol, probiotic, and Xarelto. ALLERGIES: No known drug allergies. SOCIAL HISTORY AND REVIEW OF SYSTEMS: Noncontributory. PHYSICAL EXAMINATION: GENERAL: The patient is alert and afebrile. VITAL SIGNS: Stable. GENERAL: Alert and oriented x3 in no acute distress. Mood and affect normal HEENT: Atraumatic. CHEST: Clear. CARDIOVASCULAR: Regular rhythm. ABDOMEN: Soft, nontender. EXTREMITIES: Left lower extremity - he has an anterior incision consistent with a total knee arthroplasty, is completely dehisced. The patella is visible. There is clot within the wound, uncertain as to whether the arthrotomy is intact. IMAGING DATA: X-rays demonstrate a cemented total knee arthroplasty, no evidence of fracture. ASSESSMENT: Status post left total knee arthroplasty with fall and reopening of the wound. PLAN: He had dehiscence of the wound after the fall. Plan will be for a preliminary irrigation and closure of the wound in the Emergency Room with plan for operative irrigation and debridement with possible polyethylene exchange. He has recently eaten about 2 hours ago, so we will be able to pursue that this evening, but once his n.p.o. status allows, will plan for proper operative irrigation and debridement, evaluation of his arthrotomy with possible polyethylene exchange, per Dr. Alex. [facility]
[2017-01-21 21:45] VITALS: BP 120/70; PULSE 60; TEMP 36.4; O2SAT 96
[2017-01-21 21:51] VITALS: O2SAT 96; Ht 177.8 cm; Wt 91.7 kg
--- NOTE | 2017-01-21 21:54 | DIAGNOSTIC IMAGING REPORT ---
CHEST 2 VIEWS ROUTINE HISTORY: preop COMPARISON: Chest 12/21/2016. FINDINGS: The heart remains mildly enlarged. The lungs are clear. No pleural effusions. No pneumothorax. Old, healed right-sided rib fractures. IMPRESSION: Stable mild cardiomegaly. No acute process within the chest. Electronically signed by: Lawson Anderson M.D. 01/21/2017 9:52 PM Dictated Date/Time: 01/21/2017 9:49 PM
--- NOTE | 2017-01-21 21:56 | CONSULTATION REPORT ---
DATE OF CONSULTATION: 01/21/2017 EMERGENCY ROOM CONSULTATION CHIEF COMPLAINT: Left knee pain and open wound. HISTORY OF PRESENT ILLNESS: The patient is a 66-year-old male who is about 17 days status post left total knee arthroplasty, per Dr. Alex. He sustained a fall today landing on to the left knee. He had immediate opening of the wound. He presented to the Emergency Room for evaluation and treatment. Currently, he states he is not having a lot of pain in the knee. PAST MEDICAL HISTORY: AFib, coronary artery disease, congestive heart failure, hypertension, hyperlipidemia, pulmonary hypertension, mitral regurg, esophageal reflux and gout. PAST SURGICAL HISTORY: Bilateral total knee arthroplasties and cardiac catheterization. MEDICATIONS: Amiodarone, furosemide, pantoprazole, allopurinol, aspirin 81 mg, Centrum, gabapentin, [place]-3 fish oil, potassium tramadol, vitamin B12, atorvastatin, calcium, iron, diltiazem, lisinopril, metoprolol, probiotic, Xarelto. ALLERGIES: No known drug allergies. SOCIAL HISTORY AND REVIEW OF SYSTEMS: Noncontributory. PHYSICAL EXAMINATION: VITAL SIGNS: Afebrile. Vital signs stable. GENERAL: Alert and oriented x3 in no acute distress. Mood and affect normal he is pleasant and cooperative. HEENT: Atraumatic. CHEST: Clear. CARDIOVASCULAR: Regular rate and rhythm. ABDOMEN: Soft, nontender. EXTREMITIES: Left lower extremity has palpable dorsalis pedis pulse. His anterior skin incision is opened, the patella is visible. There is clot within the wound, uncertain whether the arthrotomy is intact. ASSESSMENT: Status post left total knee arthroplasty with fall and wound dehiscence. PLAN: For now, we will have it washed and preliminarily closed in the Emergency Room. We will admit him to the hospital for IV antibiotics. He ate about 2 hours ago, so we will plan for irrigation and debridement and possible polyethylene exchange tomorrow after his n.p.o. status is appropriate. Risks, benefits, alternatives to procedure were discussed with the patient and he wished to proceed. [place]
[2017-01-21] MEDS ORDERED: CEFAZOLIN IV 2,000 MG/60 ML D5W IV SCH (22:00)
[2017-01-21] MEDS ORDERED: ACETAMINOPHEN 325 MG TAB PO ONE (22:00)
[2017-01-21 23:02] LABS: PROTHROMBIN TIME (PATIENT) 10.8 SECONDS (9.0-12.0)
[2017-01-21 23:07] VITALS: BP 120/70; PULSE 60; TEMP 36.4; O2SAT 96
[2017-01-22] VITALS (18 sets, daily range): BP systolic 97–171; BP diastolic 38–80; PULSE 56–78; TEMP 36.4–37.1; O2SAT 98–100
[2017-01-22] MEDS: GABAPENTIN 800 MG TAB PO SCH ×3 (00:10→21:07)
[2017-01-22] MEDS: ATORVASTATIN 40 MG TAB PO SCH ×2 (00:10→21:08)
[2017-01-22] MEDS: PANTOprazole SOD 40 MG TAB PO SCH ×2 (00:11→21:08)
[2017-01-22] MEDS: METOPROLOL TARTRATE 100 MG TAB PO SCH ×3 (00:11→21:08)
[2017-01-22] MEDS: OXYCODONE HCL 10 MG TABCR (OXYCONTIN) PO SCH ×3 (00:11→21:08)
[2017-01-22] MEDS ORDERED: ACETAMINOPHEN 325 MG TAB PO ONE (00:30)
[2017-01-22] MEDS ORDERED: FUROSEMIDE INJ 20 MG in SYRINGE 0 ML IV ONE (02:00)
[2017-01-22] MEDS: MoRPHine SULFATE 2 MG/ML CARP IV PRN ×3 (02:27→17:25)
--- NOTE | 2017-01-22 03:53 | Medical Consult ---
Consultation Date of Consultation: January 22, 2017. Attending Physician: Mehran Alex M.D. Reason for Consultation: anemia History of Present Illness This is a 66 yo m who is s/o left TKA and repair of right TKA wound by approx 2 weeks. The patient states that his wounds were healing well however approx 2 days prior he was getting off of his four schofield when he "knocked his knee" { pertaining to the right knee} and damaged the incision. He quickly was brought to the [facility] where the wound was closed but on his way over he states "it bled a hell of a lot." He does not recall getting his blood work done. The reason the patient came to the ED today was that he had actually injured his left knee now which led to wound dehiscence and the plan was for repair of the site tomorrow. On initial evaluation he was found to have significant anemia and he was consented to received 2 unit of pRBC. He was completely asymptomatic; no chest pain, SOB, dizziness, headache or presyncope.He does have a significant cardiac history. He notes he has had multiple stents placed and has suffered from an UT in the past. He has also recently been diagnosed with A fibb and has been taking xarelto on a daily basis. He denies ever suffering from black/ bloody stools or hematuria. Past Medical/Surgical History Medical Problems: (1) Abdominal pain Status: Acute (2) Fall from slip, trip, or stumble Status: Acute (3) Hypoxia Status: Acute (4) Pancreatitis Status: Acute (5) Pulmonary edema Status: Acute (6) Respiratory distress Status: Acute (7) Surgical wound dehiscence Status: Acute (8) Vomiting Status: Acute Social History Problems: (1) Status post left knee replacement Status: Acute Family History No significant family history Social History Smoking Status: Never Smoker Smokeless Tobacco Use: No Alcohol Use: none Drug Use: none Marital Status: Housing Status: lives with family Occupation Status: retired Allergies Coded Allergies: No Known Allergies (Unverified , 01/04/17) Current Inpatient Medications Current Inpatient Medications Medications (Trade) Dose Ordered Sig/Briana Route Start Time Stop Time Status Last Admin Dose Admin Allopurinol (Zyloprim Tab) 100 mg QAM PO 01/22/17 09:00 02/21/17 08:59 Amiodarone HCl (Cordarone Tab) 200 mg QAM PO 01/22/17 09:00 02/21/17 08:59 Aspirin (Ecotrin Tab) 81 mg QAM PO 01/22/17 09:00 02/21/17 08:59 Atorvastatin Calcium (Lipitor Tab) 40 mg HS PO 01/21/17 21:00 02/20/17 20:59 01/22/17 00:10 40 MG Diltiazem HCl (TIAzac CAP) 180 mg QAM PO 01/22/17 09:00 02/21/17 08:59 Furosemide (Lasix Tab) 40 mg BID17 PO 01/22/17 09:00 02/21/17 08:59 Gabapentin (Neurontin Tab) 800 mg BID PO 01/21/17 21:00 02/20/17 20:59 01/22/17 00:10 800 MG Lisinopril (Zestril Tab) 5 mg QAM PO 01/22/17 09:00 02/21/17 08:59 Metoprolol Tartrate (Lopressor Tab) 100 mg BID PO 01/21/17 21:00 02/20/17 20:59 01/22/17 00:11 100 MG Multivitamins/ Minerals (Multivitamin W/ Minerals Tab) 1 tab QAM PO 01/22/17 09:00 02/21/17 08:59 Oxycodone HCl (Roxicodone Immediate Rel Tab) 5 mg Q4H PRN PO 01/21/17 21:00 02/04/17 20:59 Oxycodone HCl (Oxycontin Tab) 10 mg Q12 PO 01/21/17 21:00 02/04/17 20:59 01/22/17 00:11 10 MG Pantoprazole Sodium (Protonix Tab) 40 mg QPM PO 01/21/17 21:00 02/20/17 20:59 01/22/17 00:11 40 MG Cyanocobalamin (Vitamin B-12 Tab) 1,000 mcg QAM PO 01/22/17 09:00 02/21/17 08:59 Cyanocobalamin (Vitamin B-12 Tab) 1,000 mcg DAILY@1200 PO 01/22/17 12:00 02/21/17 11:59 Ferrous Sulfate (Feosol Tab) 325 mg DAILY PO 01/22/17 09:00 02/21/17 08:59 Lactobacillus Acidophilus (Floranex Tab) 4 tab BIDM PO 01/22/17 08:00 02/21/17 07:59 Miscellaneous Information 1 ea 1 ea QS N/A 01/22/17 08:00 02/21/17 07:59 Cefazolin Sodium (Ancef 2000mg/60 ml D5W) 60 ml @ 100 mls/hr PREOP IV 01/22/17 06:00 01/22/17 06:35 Cefazolin Sodium (Ancef 2000mg/60 ml D5W) 2,000 mg Q8 IV 01/21/17 22:00 03/04/17 21:59 UNV Morphine Sulfate (MoRPHine SULFATE INJ) 2 mg Q2H PRN IV 01/21/17 21:00 02/04/17 20:59 01/22/17 02:27 2 MG Review of Systems Constitutional: No fever Eyes: No worsening of vision ENT: No hearing loss Respiratory: No cough, No dyspnea at rest, No dyspnea on exertion, No shortness of breath, No sputum, No wheezing Cardiovascular: No chest pain Abdomen: No constipation, No diarrhea, No nausea, No pain, No vomiting Musculoskeletal: No joint pain, No muscle pain Genitourinary - Male: No hematuria Neurologic: No numbness/tingling, No weakness Endocrine: No fatigue Hematologic / Lymphatic: + clotting problems Integumentary: No rash Physical Exam Date Time Temp Pulse Resp B/P Pulse Ox O2 Delivery O2 Flow Rate FiO2 01/22/17 03:02 36.7 63 20 105/54 100 01/22/17 02:00 58 97/50 01/22/17 00:48 56 16 102/38 01/22/17 00:18 36.6 63 16 123/59 100 01/22/17 00:02 Room Air 01/22/17 00:02 36.7 61 20 115/52 100 Room Air 01/22/17 00:02 36.7 61 16 115/52 99 01/21/17 23:07 36.4 60 16 96 01/21/17 21:51 96 Room Air 01/21/17 21:45 36.4 60 16 120/70 96 Room Air 01/21/17 21:35 58 18 130/59 98 01/21/17 19:45 36.4 56 18 101/57 99 Room Air General Appearance: no apparent distress Head: normocephalic Eyes: normal inspection ENT: normal ENT inspection Neck: supple Respiratory/Chest: normal breath sounds, no respiratory distress, no accessory muscle use Cardiovascular: regular rate, rhythm, no murmur Abdomen/GI: normal bowel sounds, non tender, soft Back: normal inspection Extremities/Musculoskelatal: no calf tenderness, no pedal edema, + pertinent finding (incisions noted on left and right knee) Neurologic/Psych: alert, normal mood/affect, oriented x 3 Skin: normal color, warm/dry, no rash Lymphatic: no adenopathy Laboratory Results Last 24 Hours Test 01/21/17 20:10 01/21/17 21:28 White Blood Count 10.24 K/uL 9.87 K/uL Red Blood Count 2.66 M/uL 2.52 M/uL Hemoglobin 7.1 g/dL 6.8 g/dL Hematocrit 23.8 % 22.4 % Mean Corpuscular Volume 89.5 fL 88.9 fL Mean Corpuscular Hemoglobin 26.7 pg 27.0 pg Mean Corpuscular Hemoglobin Concent 29.8 g/dl 30.4 g/dl Platelet Count 507 K/uL 429 K/uL Mean Platelet Volume 10.5 fL 9.7 fL Neutrophils (%) (Auto) 68.0 % Lymphocytes (%) (Auto) 20.1 % Monocytes (%) (Auto) 8.4 % Eosinophils (%) (Auto) 2.7 % Basophils (%) (Auto) 0.6 % Neutrophils # (Auto) 6.96 K/uL Lymphocytes # (Auto) 2.06 K/uL Monocytes # (Auto) 0.86 K/uL Eosinophils # (Auto) 0.28 K/uL Basophils # (Auto) 0.06 K/uL RDW Standard Deviation 65.4 fL 65.1 fL RDW Coefficient of Variation 20.3 % 19.8 % Immature Granulocyte % (Auto) 0.2 % Immature Granulocyte # (Auto) 0.02 K/uL Polychromasia 1+ Hypochromasia PRESENT Anisocytosis PRESENT Microcytosis PRESENT Tear Drop Cells 1+ Prothrombin Time 10.8 SECONDS Prothromb Time International Ratio 1.0 Activated Partial Thromboplast Time 25.9 SECONDS Partial Thromboplastin Ratio 1.0 Sodium Level 137 mmol/L Potassium Level 3.5 mmol/L Chloride Level 102 mmol/L Carbon Dioxide Level 25 mmol/L Anion Gap 10.0 mmol/L Blood Urea Nitrogen 20 mg/dl Creatinine 1.20 mg/dl Est Creatinine Clear Calc Drug Dose 69.0 ml/min Estimated GFR () 72.6 Estimated GFR (Non- 62.6 BUN/Creatinine Ratio 16.4 Random Glucose 103 mg/dl Calcium Level 8.5 mg/dl Total Bilirubin 0.3 mg/dl Direct Bilirubin 0.1 mg/dl Aspartate Amino Transf (AST/SGOT) 29 U/L Alanine Aminotransferase (ALT/SGPT) 39 U/L Alkaline Phosphatase 81 U/L Total Protein 6.7 gm/dl Albumin 3.3 gm/dl Assessment & Plan This is a 66 yo m suffering from anemia which is most likely secondary to this most recent injury to the left knee however will need to w/u a gastric source potentially considering the significant anemia Acute on Chronic anemia secondary to acute blood loss - patient has a very significant cardiac history - goal is hgb > 8 as his Bl is 9 - recheck after transfusion complete and assess need for additional units - Continue Ferrous sulfate and Vit b 12 - Fecal occult s/p right TKA and need for repair of incision site - Care and pain control based on primary team CAD - continue furosemide and Metoprolol A fibb - xarelto has been held - continue amiodarone, diltiazem and Metoprolol HTN - continue lisinopril Hyperlipidemia - continue atorvastatin Gout - continue allopurinol Peripheral neuropathy - continue gabapentin GERD - continue protonix Additional Copies To Lopez Guerrero M.D. Assessment and Plan Attending Addendum: I have physically seen and examined this patient, have directed their medical care, have supervised the medical residents activities, and agree with the H&P as noted above, with the following changes: NONE
[2017-01-22] MEDS ORDERED: CEFAZOLIN 2000 MG/60 ML D5W 60 ML IV SCH ×2 (06:00→11:00)
[2017-01-22 06:22] LABS: HEMATOCRIT 24.8 % (42-52)
--- NOTE | 2017-01-22 08:26 | Orthopedic Progress Note ---
Orthopedic Progress Note Date of Service January 22, 2017. Subjective Reports: feeling well, Denies: complaints Additional Notes: 66 yo wm know to our practice with wound dehiscence left knee s/p Left TKA early this month. Pt states he had his yanique removed some time last week and was doing better. He states that he was at a friends [place] and had been limiting his activity due to increased swelling of the left knee. He states that he had gotten up from the chair and became lightheaded and passed out. He fell to the floor injuring his left knee. He states that when he came to, he could see metal through the open incision. He was brought here for further care. Currently, he has no complaints. Pain is controlled. Denies SOB, CP. He just received 2 units of PRBC's. Of note, patient takes Xarelto and his last dose was Sunday evening (01/20/17) Objective Right knee incision benign. Steri strips on. Left knee incision has been closed with yanique. (done in ER). Some drainage was noted on the dressing. No active bleeding that I can see from the wound. The knee is swollen but not grossly so. Calves are soft, NT. NV intact. Date Time Temp Pulse Resp B/P Pulse Ox O2 Delivery O2 Flow Rate FiO2 01/22/17 08:07 36.7 67 18 120/67 98 Room Air 01/22/17 04:54 37.1 62 16 116/58 98 01/22/17 04:00 Room Air 01/22/17 04:00 63 109/61 01/22/17 03:30 58 16 103/45 01/22/17 03:02 36.7 63 20 105/54 100 01/22/17 02:00 58 97/50 01/22/17 00:48 56 16 102/38 01/22/17 00:18 36.6 63 16 123/59 100 01/22/17 00:02 Room Air 01/22/17 00:02 36.7 61 20 115/52 100 Room Air 01/22/17 00:02 36.7 61 16 115/52 99 01/21/17 23:07 36.4 60 16 96 01/21/17 21:51 96 Room Air 01/21/17 21:45 36.4 60 16 120/70 96 Room Air 01/21/17 21:35 58 18 130/59 98 01/21/17 19:45 36.4 56 18 101/57 99 Room Air Laboratory Results 24 Hours: Test 01/21/17 20:10 01/21/17 21:28 01/22/17 06:10 White Blood Count 10.24 K/uL Red Blood Count 2.66 M/uL Hemoglobin 7.1 g/dL 6.8 g/dL 7.9 g/dL Hematocrit 23.8 % 22.4 % 24.8 % Mean Corpuscular Volume 89.5 fL Mean Corpuscular Hemoglobin 26.7 pg Mean Corpuscular Hemoglobin Concent 29.8 g/dl Platelet Count 507 K/uL Mean Platelet Volume 10.5 fL Neutrophils (%) (Auto) 68.0 % Lymphocytes (%) (Auto) 20.1 % Monocytes (%) (Auto) 8.4 % Eosinophils (%) (Auto) 2.7 % Basophils (%) (Auto) 0.6 % Neutrophils # (Auto) 6.96 K/uL Lymphocytes # (Auto) 2.06 K/uL Monocytes # (Auto) 0.86 K/uL Eosinophils # (Auto) 0.28 K/uL Basophils # (Auto) 0.06 K/uL Prothromb Time International Ratio 1.0 Prothrombin Time 10.8 SECONDS Assessment & Plan Assessment: Left Knee wound dehiscence s/p TKA Plan: We are planning for I&D with Polyethylene bearing change today. Pt may need further transfusion. Last unit transfused looks like it ended around 0500. H/H drawn at 6am and was 7.9. Will redraw H/H at 9am to see if this has changed. Continue NPO
[2017-01-22 08:29] LABS: BUN/CREATININE RATIO 19.5 (10-20); CREATININE 0.77 mg/dl (0.60-1.40); POTASSIUM 4.2 mmol/L (3.5-5.1)
[2017-01-22] MEDS: CEROVITE ADV FORMULA TAB PO SCH (09:00)
[2017-01-22] MEDS: FERROUS SULFATE 325 MG TAB PO SCH (09:00)
[2017-01-22] MEDS: DILTIAZEM HCL (TIAzac) 180 MG CAPCR PO SCH (09:00)
[2017-01-22] MEDS: CYANOCOBALAMIN 500 MCG TAB (VIT B-12) PO SCH ×2 (09:00→12:00)
[2017-01-22] MEDS: ALLOPURINOL 100 MG TAB PO SCH (09:00)
[2017-01-22] MEDS: FUROSEMIDE 40 MG TAB PO SCH ×2 (09:00→17:36)
[2017-01-22] MEDS ORDERED: NON-FORMULARY MEDICATION (Potassium Gluconate 595 MG) PO SCH (09:00)
[2017-01-22 09:03] LABS: HEMATOCRIT 25.8 % (42-52)
[2017-01-22 09:18] LABS: CALCIUM 8.5 mg/dl (8.5-10.1)
[2017-01-22] MEDS ORDERED: FENTANYL CITRATE INJ 50 MCG/1 ML 2 ML VIAL ONE ×2 (10:51→13:13)
[2017-01-22] MEDS ORDERED: MIDAZOLAM HCL 1 MG/ML 2ML VIAL ONE (10:51)
[2017-01-22] MEDS ORDERED: PHENYLEPHRINE HCL INJ 10 MG/ML VIAL ONE (10:57)
[2017-01-22] MEDS ORDERED: POVIDONE-IODINE OP SOLN 30 ML BTL ONE (12:13)
[2017-01-22] MEDS ORDERED: BACITRACIN 50000 UNIT VIAL ONE (12:13)
[2017-01-22] MEDS ORDERED: NURSING VERBAL MED ORDER STA (12:13)
[2017-01-22] MEDS ORDERED: BUPIVACAINE 0.25% 30 ML VIAL ONE (12:26)
[2017-01-22] MEDS ORDERED: POLYMYXIN B SULFATE 100,000 UNITS in NSS 100ML IR ONE (12:30)
[2017-01-22] MEDS ORDERED: ROPIVACAINE 5MG/ML 30 ML 150 MG, BUPIVACAINE/EPINEPHR 0.5% MPF 30 ML, KETOROLAC TROMETH... INFIL ONE ×7 (12:30)
[2017-01-22] MEDS ORDERED: VANCOMYCIN INJ 400 MG in NSS 100ML IR ONE (12:30)
[2017-01-22] MEDS ORDERED: ATROPINE SULFATE 0.1 MG/ML 5ML SYR IV PRN (12:45)
[2017-01-22] MEDS ORDERED: EpHEDrine SULFATE INJ 50 MG/ML AMP IV PRN (12:45)
[2017-01-22] MEDS ORDERED: ONDANSETRON INJ 2 MG/ML 2 ML VIAL IV PRN (12:45)
[2017-01-22] MEDS ORDERED: VANCOMYCIN HCL 1000MG/20ML VIAL ONE (13:11)
[2017-01-22] MEDS ORDERED: LIDOCAINE HCL 2% 2 ML VIAL (20MG/ML) ONE (13:13)
[2017-01-22] MEDS ORDERED: PROPOFOL IV EMULSION 10 MG/ML 20 ML VIAL IV ONE (13:13)
[2017-01-22] MEDS ORDERED: ONDANSETRON INJ 2 MG/ML 2 ML VIAL ONE (13:13)
[2017-01-22] MEDS ORDERED: DEXAMETHASONE SOD INJ 4 MG/ML VIAL ONE (13:13)
--- NOTE | 2017-01-22 13:43 | [facility] Post Operative Brief Note ---
Immediate Operative Summary Operative Date January 22, 2017. Pre-Operative Diagnosis Left Knee Wound Dehiscence Post-Operative Diagnosis Left Knee Superficial Wound Dehiscence Procedure(s) Performed Left Knee Irrigation and Dedridement of Superficial Wound Dehiscence Surgeon Dr. Heriberto Bauer Roll Picker Surgeon(s) Rupali Huitron PA-C Estimated Blood Loss 5 mL Findings superficial capsular repair intact Specimens None per Surgeon Complication(s) None Disposition Recovery Room / PACU
[2017-01-22] MEDS: FENTANYL CITRATE INJ 50 MCG/1 ML 2 ML VIAL IV PRN ×4 (14:00→14:15)
[2017-01-22] MEDS: HYDROmorphone INJ 1 MG/ML SYR IV PRN ×4 (14:16→14:43)
--- NOTE | 2017-01-22 14:24 | Anesthesiology Progress Note ---
Anesthesia Post Op Note Date & Time January 22, 2017 at 14:23 Vital Signs Pain Intensity: 9.0 Vital Signs Past 12 Hours Date Time Temp Pulse Resp B/P Pulse Ox O2 Delivery O2 Flow Rate FiO2 01/22/17 14:05 76 16 171/85 94 Mask 10 01/22/17 13:55 37.5 71 16 171/86 99 Mask 10 01/22/17 11:42 99 Room Air 01/22/17 11:35 36.6 64 18 117/64 99 Room Air 01/22/17 08:07 36.7 67 18 120/67 98 Room Air 01/22/17 08:00 Room Air 01/22/17 04:54 37.1 62 16 116/58 98 01/22/17 04:00 Room Air 01/22/17 04:00 63 109/61 01/22/17 03:30 58 16 103/45 01/22/17 03:02 36.7 63 20 105/54 100 Notes Mental Status: alert / awake / arousable, participated in evaluation Pt Amnestic to Procedure: Yes Nausea / Vomiting: adequately controlled Pain: improving with treatment Airway Patency, RR, SpO2: stable & adequate BP & HR: stable & adequate Hydration State: stable & adequate Anesthetic Complications: no major complications apparent Patient stated pain is now 4-5/10 in intensity. VSS. Awake and conversant. Ok for transfer to floor when meets PACU discharge criteria.
[2017-01-22 14:33] LABS: HEMATOCRIT 27.6 % (42-52)
--- NOTE | 2017-01-22 16:11 | Family Medicine Progress Note ---
Progress Note Date of Service January 22, 2017. Subjective Pt evaluation today including: conversation w/ patient, physical exam, chart review, lab review Pain: well-controlled 66-year-old male with a past medical history of coronary artery disease with stent placement, hypertension, atrial fibrillation on Xarelto, gout, GERD, peripheral neuropathy, status post left TKA in early january , status post right AKA wound repair about 2 weeks ago presented to the ER after he had an injury to his left knee which led to dehiscence of his incision leading to significant amount of blood loss . He was found to have a hemoglobin of 7.1 in the ER and had received 2 units of PRBC transfusion. He had been asymptomatic and denied any complaints of chest pain, palpitations, lightheadedness or dizziness. Denied any bright red bleeding per rectum, melena(he does have black stool due to using ferrous sulfate) , hematuria, hematemesis. He uses xarelto for atrial fibrillation. Constitutional: No chills, No fever Eyes: No worsening of vision ENT: No hearing loss Respiratory: No cough, No shortness of breath, No sputum, No wheezing Cardiovascular: No PND, No chest pain, No orthopnea Abdomen: No GI bleeding, No diarrhea, No nausea, No pain, No vomiting Musculoskeletal: + joint pain (left knee) Male : No hematuria Neurologic: No memory loss Psychiatric: No depression symptoms Heme: No abnormal bleeding/bruising, No clotting problems Medications Current Inpatient Medications Medications (Trade) Dose Ordered Sig/Briana Route Start Time Stop Time Status Last Admin Dose Admin Allopurinol (Zyloprim Tab) 100 mg QAM PO 01/22/17 09:00 02/21/17 08:59 Amiodarone HCl (Cordarone Tab) 200 mg QAM PO 01/22/17 09:00 02/21/17 08:59 Aspirin (Ecotrin Tab) 81 mg QAM PO 01/22/17 09:00 02/21/17 08:59 Atorvastatin Calcium (Lipitor Tab) 40 mg HS PO 01/21/17 21:00 02/20/17 20:59 01/22/17 00:10 40 MG Diltiazem HCl (TIAzac CAP) 180 mg QAM PO 01/22/17 09:00 02/21/17 08:59 Furosemide (Lasix Tab) 40 mg BID17 PO 01/22/17 09:00 02/21/17 08:59 Gabapentin (Neurontin Tab) 800 mg BID PO 01/21/17 21:00 02/20/17 20:59 01/22/17 00:10 800 MG Lisinopril (Zestril Tab) 5 mg QAM PO 01/22/17 09:00 02/21/17 08:59 Metoprolol Tartrate (Lopressor Tab) 100 mg BID PO 01/21/17 21:00 02/20/17 20:59 01/22/17 00:11 100 MG Multivitamins/ Minerals (Multivitamin W/ Minerals Tab) 1 tab QAM PO 01/22/17 09:00 02/21/17 08:59 Oxycodone HCl (Roxicodone Immediate Rel Tab) 5 mg Q4H PRN PO 01/21/17 21:00 02/04/17 20:59 Oxycodone HCl (Oxycontin Tab) 10 mg Q12 PO 01/21/17 21:00 02/04/17 20:59 01/22/17 00:11 10 MG Pantoprazole Sodium (Protonix Tab) 40 mg QPM PO 01/21/17 21:00 02/20/17 20:59 01/22/17 00:11 40 MG Cyanocobalamin (Vitamin B-12 Tab) 1,000 mcg QAM PO 01/22/17 09:00 02/21/17 08:59 Cyanocobalamin (Vitamin B-12 Tab) 1,000 mcg DAILY@1200 PO 01/22/17 12:00 02/21/17 11:59 Ferrous Sulfate (Feosol Tab) 325 mg DAILY PO 01/22/17 09:00 02/21/17 08:59 Lactobacillus Acidophilus (Floranex Tab) 4 tab BIDM PO 01/22/17 08:00 02/21/17 07:59 Miscellaneous Information (Order Awaiting Action) 1 ea QS N/A 01/22/17 08:00 02/21/17 07:59 Morphine Sulfate (MoRPHine SULFATE INJ) 2 mg Q2H PRN IV 01/21/17 21:00 02/04/17 20:59 01/22/17 07:34 2 MG Fentanyl Citrate (Fentanyl Inj) 25 mcg Q5M PRN IV 01/22/17 12:45 01/22/17 18:00 01/22/17 14:15 25 MCG Hydromorphone HCl (Dilaudid Inj) 0.5 mg Q5M PRN IV 01/22/17 12:45 01/22/17 18:00 01/22/17 14:43 0.5 MG Ondansetron HCl (Zofran Inj) 4 mg ONE PRN IV 01/22/17 12:45 01/22/17 18:00 Ephedrine Sulfate (EpHEDrine SULFATE INJ) 5 mg Q5M PRN IV 01/22/17 12:45 01/22/17 18:00 Atropine Sulfate 0.5 mg 0.5 mg Q1M PRN IV 01/22/17 12:45 01/22/17 18:00 Potassium Chloride/Dextrose/ Sod Cl 1,000 ml @ 100 mls/hr Q10H IV 01/22/17 14:30 02/21/17 14:29 Cefazolin Sodium/ Dextrose (Ancef Iv/D5 50ml) 60 ml @ 100 mls/hr Q8H IV 01/22/17 20:00 01/23/17 04:35 Objective Vital Signs Date Time Temp Pulse Resp B/P Pulse Ox O2 Delivery O2 Flow Rate FiO2 01/22/17 15:35 36.7 67 16 166/71 98 Nasal Cannula 3.0 01/22/17 15:20 36.6 66 16 160/87 97 Nasal Cannula 2 01/22/17 15:05 67 16 153/82 94 Nasal Cannula 2 01/22/17 14:50 36.9 69 16 160/84 94 Nasal Cannula 2 01/22/17 14:35 36.9 69 16 152/87 94 Nasal Cannula 2 01/22/17 14:25 75 16 157/79 94 Nasal Cannula 2 01/22/17 14:15 75 16 168/85 94 Nasal Cannula 2 01/22/17 14:05 76 16 171/85 94 Mask 10 01/22/17 13:55 37.5 71 16 171/86 99 Mask 10 01/22/17 11:42 99 Room Air 01/22/17 11:35 36.6 64 18 117/64 99 Room Air 01/22/17 08:07 36.7 67 18 120/67 98 Room Air 01/22/17 08:00 Room Air 01/22/17 04:54 37.1 62 16 116/58 98 01/22/17 04:00 Room Air 01/22/17 04:00 63 109/61 01/22/17 03:30 58 16 103/45 01/22/17 03:02 36.7 63 20 105/54 100 01/22/17 02:00 58 97/50 01/22/17 00:48 56 16 102/38 01/22/17 00:18 36.6 63 16 123/59 100 01/22/17 00:02 Room Air 01/22/17 00:02 36.7 61 20 115/52 100 Room Air 01/22/17 00:02 36.7 61 16 115/52 99 01/21/17 23:07 36.4 60 16 96 01/21/17 21:51 96 Room Air 01/21/17 21:45 36.4 60 16 120/70 96 Room Air 01/21/17 21:35 58 18 130/59 98 01/21/17 19:45 36.4 56 18 101/57 99 Room Air Physical Exam General Appearance: WD/WN, no apparent distress Eyes: normal inspection ENT: normal ENT inspection, hearing grossly normal Neck: supple Respiratory/Chest: chest non-tender, lungs clear, normal breath sounds, no respiratory distress, no accessory muscle use Cardiovascular: regular rate, rhythm Abdomen: normal bowel sounds, non tender, soft Extremities: + pertinent finding (left knee wound in yanique with mild swelling. Right knee wound in Steri-Strips) Neurologic/Psychiatric: alert, normal mood/affect, oriented x 3 Skin: normal color Laboratory Results 01/21/17 21:28 01/22/17 14:27 01/22/17 06:00 Test 01/21/17 20:10 01/21/17 21:28 01/22/17 06:00 Immature Granulocyte % (Auto) 0.2 % White Blood Count 10.24 K/uL (4.8-10.8) Red Blood Count 2.66 M/uL (4.7-6.1) 2.52 M/uL (4.7-6.1) Hemoglobin 7.1 g/dL (14.0-18.0) Hematocrit 23.8 % (42-52) Mean Corpuscular Volume 89.5 fL (80-100) 88.9 fL (80-100) Mean Corpuscular Hemoglobin 26.7 pg (25-34) 27.0 pg (25-34) Mean Corpuscular Hemoglobin Concent 29.8 g/dl (32-36) 30.4 g/dl (32-36) Platelet Count 507 K/uL (130-400) Mean Platelet Volume 10.5 fL (7.4-10.4) 9.7 fL (7.4-10.4) Neutrophils (%) (Auto) 68.0 % Lymphocytes (%) (Auto) 20.1 % Monocytes (%) (Auto) 8.4 % Eosinophils (%) (Auto) 2.7 % Basophils (%) (Auto) 0.6 % Neutrophils # (Auto) 6.96 K/uL (1.4-6.5) Lymphocytes # (Auto) 2.06 K/uL (1.2-3.4) Monocytes # (Auto) 0.86 K/uL (0.11-0.59) Eosinophils # (Auto) 0.28 K/uL (0-0.5) Basophils # (Auto) 0.06 K/uL (0-0.2) Immature Granulocyte # (Auto) 0.02 K/uL (0.00-0.02) Polychromasia 1+ Hypochromasia PRESENT Anisocytosis PRESENT Microcytosis PRESENT Tear Drop Cells 1+ Prothrombin Time 10.8 SECONDS (9.0-12.0) Prothromb Time International Ratio 1.0 (0.9-1.1) Activated Partial Thromboplast Time 25.9 SECONDS (21.0-31.0) Partial Thromboplastin Ratio 1.0 Total Bilirubin 0.3 mg/dl (0.2-1) Direct Bilirubin 0.1 mg/dl (0-0.2) Aspartate Amino Transf (AST/SGOT) 29 U/L (15-37) Alanine Aminotransferase (ALT/SGPT) 39 U/L (12-78) Alkaline Phosphatase 81 U/L (45-117) Total Protein 6.7 gm/dl (6.4-8.2) Albumin 3.3 gm/dl (3.4-5.0) RDW Standard Deviation 65.1 fL (36.4-46.3) RDW Coefficient of Variation 19.8 % (11.5-14.5) Anion Gap 10.0 mmol/L (3-11) Est Creatinine Clear Calc Drug Dose 107.4 ml/min Estimated GFR () 109.6 Estimated GFR (Non- 94.6 BUN/Creatinine Ratio 19.5 (10-20) Calcium Level 8.5 mg/dl (8.5-10.1) Assessment and Plan 66-year-old male with a past medical history of coronary artery disease with stent placement, hypertension, atrial fibrillation on Xarelto, gout, GERD, peripheral neuropathy, status post left TKA in early january , status post right AKA wound repair about 2 weeks ago presented to the ER after he had an injury to his left knee which led to dehiscence of his incision leading to significant amount of blood loss . He was found to have a hemoglobin of 7.1 in the ER and had received 2 units of PRBC transfusion. He had been asymptomatic and denied any complaints of chest pain, palpitations, lightheadedness or dizziness. Acute blood loss anemia: Status post 2 units PRBC transfusion - Likely secondary to wound dehiscence while on Xarelto from a traumatic injury - Hemoglobin on presentation at 7.1, today at 8.1 - Fecal occult blood pending - Monitor H&H - Continue ferrous sulfate and vitamin B12 Left knee TKA wound dehiscence: - Orthopedics consult- plan for incision and debridement of wound dehiscence Coronary artery disease: - Continue Lopressor 100 mg twice daily, atorvastatin 40 mg daily, lisinopril Hypertension: Continue lisinopril 5 mg daily Atrial fibrillation: Rate control with amiodarone and diltiazem, anti-coagulation Xarelto (currently held) Hyperlipidemia: Continue atorvastatin Gout Continue allopurinol GERD: - continue Protonix DVT prophylaxis: SCDs Avoid chemical and regulation considering bleeding Full code Disposition: Monitor in telemetry, scheduled for I& debridement Resident Tracking Resident Involvement: Resident Care Provided Care Provided: Adult Hospital Medicine History Resident Physician Supervision Note: I was present with Dr. Dai during the history and exam. I discussed the case with the resident and agree with the findings and plan as documented in the note. Any exceptions or clarifications are listed here. Pt seen and examined at bedside. Resting comfortably in bed. Pain of the LLE well controlled on present regimen. Hemostatic leg. Reports no fever, n/t/w, abd pain, lightheadedness, CP/SOB, palpitations, fatigue. General Appearance: WD/WN, no apparent distress Respiratory: chest non-tender, lungs clear, normal breath sounds, no respiratory distress Cardiovascular: normal peripheral pulses, regular rate, rhythm, no murmur Assessment/Plan 66 y/o male h/o CAD w/ stent placement, HTN, a. fib on xarelto consulted for anemia in the setting of acute blood loss Anemia - transfused 2 UPRBC, trend CBC in AM, FOBT pending, continue FeSO4, B12 L knee TKA w/ wound dehiscence 2/2 trauma - per primary team h/o CAD - continue metoprolol BID, statin, lisinopril; cleared by cardiology for previous procedure 3 wks ago HTN - medications as above Atrial fibrillation - rate controlled - continue amio and dilt, restart xarelto after discussion w/ primary team Hyperlipidemia - continue atorvastatin Gout - continue allopurinol GERD - continue Protonix DVT PPX - SCD FULL CODE
[2017-01-22] MEDS: OXYCODONE HCL IR 5 MG TAB (IMMEDIATE RELEASE) PO PRN ×2 (16:46→21:08)
[2017-01-22] MEDS: ASPIRIN 81 MG ECTAB PO SCH (17:35)
[2017-01-22] MEDS: AMIODARONE 200 MG TAB PO SCH (17:35)
[2017-01-22] MEDS: LISINOPRIL 5 MG TAB PO SCH (17:35)
[2017-01-22] MEDS: D5W AND 1/2NSS + 20MEQ KCL 1,000 ML IV SCH (17:36)
[2017-01-22] MEDS: LACTOBACILLUS ACIDOPHILUS (FLORANEX) TAB PO SCH (17:36)
--- NOTE | 2017-01-22 17:51 | OPERATIVE REPORT ---
DATE OF OPERATION: 01/22/2017 PREOPERATIVE DIAGNOSIS: Traumatic wound dehiscence, left knee. POSTOPERATIVE DIAGNOSIS: Superficial traumatic wound dehiscence, left knee. PROCEDURE: Exploration and repair superficial wound dehiscence 18 cm. SURGEON: Heriberto Bauer MD STUNT WOMAN: REBEKAH Cheema ANESTHESIA: General. TOURNIQUET TIME: 25 minutes at 250 mmHg. DRAINS: None. CULTURES: None. COMPLICATIONS: None. NOTE: Rupali Huitron was present and assisted throughout due to the complicated nature of this case. She helped with preparation and set up, first assisted and closed the subcutaneous and skin dehiscence. She also applied the dressing. DESCRIPTION OF PROCEDURE: Following satisfactory general, the patient was supine. The leg was prepared with Betadine scrub and paint and draped sterilely. The tourniquet was inflated without using the Esmarch. Upon inspection, there was dehiscence of the distal portion of the incision for about 10 cm. The incision was extended to the nature of the whole previous incision which was about 18 cm in length. The flaps were elevated and hematoma and some fibrinous material was removed. The knee was carefully inspected in flexion and extension and the capsular repair appeared to be intact. The patellar tendon was soft in extension, but in flexion showed good tensioning of the patellar fibers and again the capsular repair appeared to be intact. There was some mild instability, but because the capsule was intact, it was decided not to open the joint. The wound was irrigated with 3 liters of pulse lavage with antibiotic. The subcutaneous tissues were closed with 2-0 Vicryl interrupted, the skin was then closed in the middle using vertical mattress sutures and on the ends with surgical yanique. A silver dressing and a negative pressure wound VAC was then applied. The tourniquet was deflated. The patient was returned to his bed in stable condition. I attest to the content of the Intraoperative Record and any orders documented therein. Any exceptions are noted below. [place]
[2017-01-22] MEDS ORDERED: CEFAZOLIN SOD 2000 MG in DEXTROSE 5% 50ML IV SCH (20:00)
[2017-01-22] MEDS: CEFAZOLIN IV 2,000 MG in DEXTROSE 5% 50ML 50 ML IV SCH (21:06)
[2017-01-22 22:42] LABS: HEMATOCRIT 27.9 % (42-52)
[2017-01-23] MEDS: OXYCODONE HCL IR 5 MG TAB (IMMEDIATE RELEASE) PO PRN ×3 (01:29→15:48)
[2017-01-23] MEDS: D5W AND 1/2NSS + 20MEQ KCL 1,000 ML IV SCH ×2 (01:30→11:08)
[2017-01-23 03:21] VITALS: BP 127/68; PULSE 64; TEMP 36.6; O2SAT 99
[2017-01-23] MEDS: CEFAZOLIN IV 2,000 MG in DEXTROSE 5% 50ML 50 ML IV SCH (04:17)
[2017-01-23 06:37] LABS: HEMATOCRIT 24.8 % (42-52)
[2017-01-23 07:36] VITALS: BP 116/80; PULSE 61; TEMP 36.7; O2SAT 97
[2017-01-23 07:49] VITALS: O2SAT 97
--- NOTE | 2017-01-23 08:13 | Anesthesiology Progress Note ---
Anesthesia Post Op Note Date & Time January 23, 2017 at 08:13 Vital Signs Vital Signs Past 12 Hours Date Time Temp Pulse Resp B/P Pulse Ox O2 Delivery O2 Flow Rate FiO2 01/23/17 07:49 97 Room Air 01/23/17 07:36 36.7 61 14 116/80 97 Room Air 01/23/17 03:21 36.6 64 16 127/68 99 Room Air 01/22/17 23:30 Room Air 01/22/17 22:58 36.4 69 16 107/51 99 Room Air 01/22/17 21:10 73 124/66 Notes Mental Status: alert / awake / arousable, participated in evaluation Pt Amnestic to Procedure: Yes Nausea / Vomiting: adequately controlled Pain: adequately controlled Airway Patency, RR, SpO2: stable & adequate BP & HR: stable & adequate Hydration State: stable & adequate Anesthetic Complications: no major complications apparent
--- NOTE | 2017-01-23 08:34 | Orthopedic Progress Note ---
Orthopedic Progress Note Date of Service January 23, 2017. Subjective Post OP Day: 1 Reports: feeling well, Denies: SOB, calf pain, chest pain, light headedness, nausea / vomiting Objective calves soft nontender, N/V intact, dressing C/D/I, A&O x3, toes mobile Date Time Temp Pulse Resp B/P Pulse Ox O2 Delivery O2 Flow Rate FiO2 01/23/17 07:49 97 Room Air 01/23/17 07:36 36.7 61 14 116/80 97 Room Air 01/23/17 03:21 36.6 64 16 127/68 99 Room Air 01/22/17 23:30 Room Air 01/22/17 22:58 36.4 69 16 107/51 99 Room Air 01/22/17 21:10 73 124/66 01/22/17 18:35 36.8 73 18 126/64 99 Nasal Cannula 3.0 01/22/17 17:35 36.7 78 20 171/80 100 Nasal Cannula 3.0 01/22/17 16:35 36.6 68 20 151/69 100 Nasal Cannula 3.0 01/22/17 16:00 37.0 65 16 160/72 99 Nasal Cannula 3.0 01/22/17 15:45 98 Nasal Cannula 3.0 01/22/17 15:35 36.7 67 16 166/71 98 Nasal Cannula 3.0 01/22/17 15:20 36.6 66 16 160/87 97 Nasal Cannula 2 01/22/17 15:05 67 16 153/82 94 Nasal Cannula 2 01/22/17 14:50 36.9 69 16 160/84 94 Nasal Cannula 2 01/22/17 14:35 36.9 69 16 152/87 94 Nasal Cannula 2 01/22/17 14:25 75 16 157/79 94 Nasal Cannula 2 01/22/17 14:15 75 16 168/85 94 Nasal Cannula 2 01/22/17 14:05 76 16 171/85 94 Mask 10 01/22/17 13:55 37.5 71 16 171/86 99 Mask 10 01/22/17 11:42 99 Room Air 01/22/17 11:35 36.6 64 18 117/64 99 Room Air Laboratory Results 24 Hours: Test 01/22/17 08:50 01/22/17 14:27 01/22/17 22:32 01/23/17 06:29 Hematocrit 25.8 % 27.6 % 27.9 % 24.8 % Hemoglobin 8.1 g/dL 8.6 g/dL 8.4 g/dL 7.8 g/dL Assessment & Plan Assessment: POD 2 s/p I&D of Left Knee wound dehiscence s/p TKA (Superficial) Anemia Plan: PT/OT Continue use of Immobilizer when OOB WBAT Medical Management - [facility] [place] Inhouse Planning Pain Management: Oxycontin, Morphine, Oxy IR DVT Prophylaxis: TEDs, SCDs, Xarelto
[2017-01-23] MEDS: ALLOPURINOL 100 MG TAB PO SCH (08:46)
[2017-01-23] MEDS: CEROVITE ADV FORMULA TAB PO SCH (08:46)
[2017-01-23] MEDS: LACTOBACILLUS ACIDOPHILUS (FLORANEX) TAB PO SCH ×2 (08:46→17:35)
[2017-01-23] MEDS: DILTIAZEM HCL (TIAzac) 180 MG CAPCR PO SCH (08:47)
[2017-01-23] MEDS: FERROUS SULFATE 325 MG TAB PO SCH (08:47)
[2017-01-23] MEDS: CYANOCOBALAMIN 500 MCG TAB (VIT B-12) PO SCH ×2 (08:47→11:11)
[2017-01-23] MEDS: GABAPENTIN 800 MG TAB PO SCH ×2 (08:48→20:55)
[2017-01-23] MEDS: METOPROLOL TARTRATE 100 MG TAB PO SCH ×2 (08:48→20:55)
[2017-01-23] MEDS: FUROSEMIDE 40 MG TAB PO SCH ×2 (08:48→17:34)
[2017-01-23] MEDS: OXYCODONE HCL 10 MG TABCR (OXYCONTIN) PO SCH ×2 (08:57→20:56)
[2017-01-23] MEDS ORDERED: NURSING VERBAL MED ORDER ONE (09:00)
[2017-01-23] MEDS: DOCUSATE SODIUM 100 MG CAP PO SCH ×2 (11:08→20:56)
[2017-01-23] MEDS: LISINOPRIL 5 MG TAB PO SCH (11:09)
[2017-01-23] MEDS: POLYETHYLENE (MIRALAX) 17 GM PACK PO SCH ×2 (11:09→20:49)
[2017-01-23] MEDS: AMIODARONE 200 MG TAB PO SCH (11:10)
[2017-01-23] MEDS: ASPIRIN 81 MG ECTAB PO SCH (11:10)
[2017-01-23 11:16] VITALS: PULSE 68
--- NOTE | 2017-01-23 11:58 | Discharge Instructions ---
Discharge Instructions Date of Service January 23, 2017. Admission Reason for Admission: Wound Disruption Discharge Discharge Diagnosis / Problem: wound disruption Discharge Goals Goal(s): Decrease discomfort, Improve function, Increase independence Activity Recommendations Activity Limitations: per Instructions/Follow-up section . Instructions / Follow-Up Instructions / Follow-Up Recommendations Acute blood loss anemia: - Likely secondary to wound dehiscence while on Xarelto from a traumatic injury - Hemoglobin on presentation at 7.1, today at 7.4 - Continue ferrous sulfate and vitamin B12 - Recheck CBC in 2-3 days and follow up with PCP( script is enclosed) Left knee TKA wound dehiscence: - recommendations per Orthopedics Coronary artery disease: - Continue Lopressor 100 mg twice daily, atorvastatin 40 mg daily, lisinopril Hypertension: Continue lisinopril 5 mg daily Atrial fibrillation: continue amiodarone and diltiazem and restart Xarelto Hyperlipidemia: Continue atorvastatin Gout Continue allopurinol GERD: - continue Protonix Please follow up with your PCP in 2-3 days after getting CBC done . Current Hospital Diet Patient's current hospital diet: AHA Diet (Heart Healthy) Discharge Diet Recommended Diet: AHA Diet (Heart Healthy) Procedures Procedures Performed: Left Knee Irrigation and Dedridement of Superficial Wound Dehiscence Pending Studies Studies pending at discharge: no Laboratory Results Hemoglobin A1c Test 12/21/16 11:08 Range/Units Estimated Average Glucose 114 mg/dl Hemoglobin A1c 5.6 4.5-5.6 % Medical Emergencies . Who to Call and When: Medical Emergencies: If at any time you feel your situation is an emergency, please call 911 immediately. . Non-Emergent Contact Non-Emergency issues call your: Primary Care Provider . . "Provider Documentation" section prepared by Tasha Dai. . VTE Core Measure Inpt VTE Proph given/why not?: SCD's, Contraindicated (bleeding from knee) Resident Tracking Resident Involvement: Resident Care Provided Care Provided: Adult Hospital Medicine
[2017-01-23 14:42] LABS: HEMATOCRIT 26.7 % (42-52)
[2017-01-23 15:25] VITALS: BP 105/57; PULSE 57; TEMP 36.6; O2SAT 100
--- NOTE | 2017-01-23 18:21 | Family Medicine Progress Note ---
Progress Note Date of Service January 23, 2017. Subjective Pt evaluation today including: conversation w/ patient, physical exam, chart review, lab review Pain: well controlled PO Intake: good Voiding: no voiding problems Constitutional: No chills, No fever Eyes: No worsening of vision ENT: No hearing loss Respiratory: No cough, No shortness of breath, No sputum, No wheezing Cardiovascular: No chest pain Abdomen: No nausea, No pain Musculoskeletal: No joint pain Male : No dysuria Neurologic: No memory loss, No paralysis Psychiatric: No depression symptoms Endo: No fatigue Medications Current Inpatient Medications Medications (Trade) Dose Ordered Sig/Briana Route Start Time Stop Time Status Last Admin Dose Admin Allopurinol (Zyloprim Tab) 100 mg QAM PO 01/22/17 09:00 02/21/17 08:59 01/23/17 08:46 100 MG Amiodarone HCl (Cordarone Tab) 200 mg QAM PO 01/22/17 09:00 02/21/17 08:59 01/23/17 11:10 200 MG Aspirin (Ecotrin Tab) 81 mg QAM PO 01/22/17 09:00 02/21/17 08:59 01/23/17 11:10 81 MG Atorvastatin Calcium (Lipitor Tab) 40 mg HS PO 01/21/17 21:00 02/20/17 20:59 01/22/17 21:08 40 MG Diltiazem HCl (TIAzac CAP) 180 mg QAM PO 01/22/17 09:00 02/21/17 08:59 01/23/17 08:47 180 MG Furosemide (Lasix Tab) 40 mg BID17 PO 01/22/17 09:00 02/21/17 08:59 01/23/17 17:34 40 MG Gabapentin (Neurontin Tab) 800 mg BID PO 01/21/17 21:00 02/20/17 20:59 01/23/17 08:48 800 MG Lisinopril (Zestril Tab) 5 mg QAM PO 01/22/17 09:00 02/21/17 08:59 01/23/17 11:09 5 MG Metoprolol Tartrate (Lopressor Tab) 100 mg BID PO 01/21/17 21:00 02/20/17 20:59 01/23/17 08:48 100 MG Multivitamins/ Minerals (Multivitamin W/ Minerals Tab) 1 tab QAM PO 01/22/17 09:00 02/21/17 08:59 01/23/17 08:46 1 TAB Oxycodone HCl (Roxicodone Immediate Rel Tab) 5 mg Q4H PRN PO 01/21/17 21:00 02/04/17 20:59 01/23/17 15:48 5 MG Oxycodone HCl (Oxycontin Tab) 10 mg Q12 PO 01/21/17 21:00 02/04/17 20:59 01/23/17 08:57 10 MG Pantoprazole Sodium (Protonix Tab) 40 mg QPM PO 01/21/17 21:00 02/20/17 20:59 01/22/17 21:08 40 MG Cyanocobalamin (Vitamin B-12 Tab) 1,000 mcg QAM PO 01/22/17 09:00 02/21/17 08:59 01/23/17 08:47 1,000 MCG Cyanocobalamin (Vitamin B-12 Tab) 1,000 mcg DAILY@1200 PO 01/22/17 12:00 02/21/17 11:59 01/23/17 11:11 1,000 MCG Ferrous Sulfate (Feosol Tab) 325 mg DAILY PO 01/22/17 09:00 02/21/17 08:59 01/23/17 08:47 325 MG Lactobacillus Acidophilus (Floranex Tab) 4 tab BIDM PO 01/22/17 08:00 02/21/17 07:59 01/23/17 17:35 4 TAB Miscellaneous Information (Order Awaiting Action) 1 ea QS N/A 01/22/17 08:00 02/21/17 07:59 Morphine Sulfate (MoRPHine SULFATE INJ) 2 mg Q2H PRN IV 01/21/17 21:00 02/04/17 20:59 01/22/17 07:34 2 MG Docusate Sodium (coLACE CAP) 100 mg BID PO 01/23/17 10:30 02/22/17 10:29 01/23/17 11:08 100 MG Polyethylene (Miralax Powder Packet) 17 gm BID PO 01/23/17 10:30 02/22/17 10:29 01/23/17 11:09 17 GM Objective Vital Signs Date Time Temp Pulse Resp B/P Pulse Ox O2 Delivery O2 Flow Rate FiO2 01/23/17 15:25 36.6 57 20 105/57 100 Room Air 01/23/17 11:16 68 01/23/17 08:15 Room Air 01/23/17 07:49 97 Room Air 01/23/17 07:36 36.7 61 14 116/80 97 Room Air 01/23/17 03:21 36.6 64 16 127/68 99 Room Air 01/22/17 23:30 Room Air 01/22/17 22:58 36.4 69 16 107/51 99 Room Air 01/22/17 21:10 73 124/66 01/22/17 18:35 36.8 73 18 126/64 99 Nasal Cannula 3.0 Physical Exam General Appearance: WD/WN, no apparent distress Eyes: normal inspection ENT: hearing grossly normal Neck: supple Respiratory/Chest: chest non-tender, lungs clear, normal breath sounds, no respiratory distress, no accessory muscle use Cardiovascular: regular rate, rhythm Abdomen: normal bowel sounds, non tender, soft Extremities: + pertinent finding (left Knee s/p I&Debridement covered in dressing) Neurologic/Psychiatric: alert, normal mood/affect, oriented x 3 Laboratory Results 01/23/17 14:30 Assessment and Plan 66-year-old male with a past medical history of coronary artery disease with stent placement, hypertension, atrial fibrillation on Xarelto, gout, GERD, peripheral neuropathy, status post left TKA in early january , status post right AKA wound repair about 2 weeks ago presented to the ER after he had an injury to his left knee which led to dehiscence of his incision leading to significant amount of blood loss . He was found to have a hemoglobin of 7.1 in the ER and had received 2 units of PRBC transfusion. He had been asymptomatic and denied any complaints of chest pain, palpitations, lightheadedness or dizziness. Acute blood loss anemia: Status post 2 units PRBC transfusion - Likely secondary to wound dehiscence while on Xarelto from a traumatic injury - Hemoglobin on presentation at 7.1, today at 8.2. No active bleeding - Fecal occult blood pending- bowel regimen initiated - Monitor H&H - Continue ferrous sulfate and vitamin B12 Left knee TKA wound dehiscence: - incision and debridement of wound dehiscence yesterday - PT Coronary artery disease: - Continue Lopressor 100 mg twice daily, atorvastatin 40 mg daily, lisinopril Hypertension: Continue lisinopril 5 mg daily Atrial fibrillation: Rate control with amiodarone and diltiazem, anti-coagulation Xarelto (currently held) Hyperlipidemia: Continue atorvastatin Gout Continue allopurinol GERD: - continue Protonix DVT prophylaxis: SCDs Avoid chemical and regulation considering bleeding Full code Disposition: transferred to [facility] Resident Tracking Resident Involvement: Resident Care Provided Care Provided: Adult Hospital Medicine History Resident Physician Supervision Note: I was present with Dr. Dai during the history and exam. I discussed the case with the resident and agree with the findings and plan as documented in the note. Any exceptions or clarifications are listed here. Pt seen and examined at bedside. No acute events O/N. No BM as yet. Tolerating PO well. Pain well controlled on present regimen. Reports no HOANG, vision changes , lightheadedness, Cp/SOB, palpitations. General Appearance: WD/WN, no apparent distress Respiratory: chest non-tender, lungs clear, normal breath sounds, no respiratory distress Cardiovascular: normal peripheral pulses, regular rate, rhythm, no edema, no murmur Gastrointestinal: normal bowel sounds, non tender, soft, no organomegaly Assessment/Plan 66 y/o male h/o CAD w/ stent placement, HTN, a. fib on xarelto consulted for anemia in the setting of acute blood loss Anemia - transfused 2 UPRBC - Hgb stable, FOBT pending, continue FeSO4, B12 L knee TKA w/ wound dehiscence 2/2 trauma - per primary team h/o CAD - continue metoprolol BID, statin, lisinopril HTN - medications as above Atrial fibrillation - rate controlled - continue amio and dilt, restart xarelto after discussion w/ primary team Hyperlipidemia - continue atorvastatin Gout - continue allopurinol GERD - continue Protonix DVT PPX - SCD FULL CODE
[2017-01-23] MEDS: ATORVASTATIN 40 MG TAB PO SCH (20:55)
[2017-01-23] MEDS: PANTOprazole SOD 40 MG TAB PO SCH (20:55)
[2017-01-23 22:34] LABS: HEMATOCRIT 24.8 % (42-52)
[2017-01-23 23:03] VITALS: BP 130/65; PULSE 62; TEMP 36.8; O2SAT 98
[2017-01-24] MEDS: OXYCODONE HCL IR 5 MG TAB (IMMEDIATE RELEASE) PO PRN ×3 (00:34→14:18)
[2017-01-24 06:08] LABS: HEMATOCRIT 24.4 % (42-52)
--- NOTE | 2017-01-24 08:14 | Orthopedic Progress Note ---
Orthopedic Progress Note Date of Service January 24, 2017. Subjective Post OP Day: 2 Reports: feeling well, pain controlled w PO medications, Denies: SOB, calf pain , chest pain, complaints, light headedness, nausea / vomiting Additional Notes: Hgb 7.4 this AM, down from 8.4 yesterday. Stool occult blood negative. Objective calves soft nontender, N/V intact, capillary refill less than 2 sec., dressing C /D/I, A&O x3, toes mobile provena wound vac in tact. Date Time Temp Pulse Resp B/P Pulse Ox O2 Delivery O2 Flow Rate FiO2 01/24/17 00:35 Room Air 01/23/17 23:03 36.8 62 16 130/65 98 Room Air 01/23/17 15:45 Room Air 01/23/17 15:25 36.6 57 20 105/57 100 Room Air 01/23/17 11:16 68 01/23/17 08:15 Room Air Laboratory Results 24 Hours: Test 01/23/17 14:30 01/23/17 22:25 01/24/17 06:02 Hematocrit 26.7 % 24.8 % 24.4 % Hemoglobin 8.2 g/dL 7.6 g/dL 7.4 g/dL Assessment & Plan Assessment: POD 2 s/p I&D of Left Knee wound dehiscence s/p TKA (Superficial) Anemia Hgb down to 7.4 this AM Plan: PT/OT WBAT Medical Management - [facility] Hospitalist, Anemia likely transfuse today again. Disposition home when stable, No formal PT until f/u w Dr. Alex. Inhouse Planning Pain Management: Oxycontin, Morphine, Oxy IR DVT Prophylaxis: TEDs, SCDs, ASA Discharge Planning Discharge Planning: home Pain Management: Oxycontin, Morphine, Oxy IR DVT Prophylaxis: TEDs, ASA
[2017-01-24 08:31] VITALS: BP 142/82; PULSE 60; TEMP 37; O2SAT 97
[2017-01-24] MEDS: DOCUSATE SODIUM 100 MG CAP PO SCH (08:45)
[2017-01-24] MEDS: GABAPENTIN 800 MG TAB PO SCH (08:46)
[2017-01-24] MEDS: ASPIRIN 81 MG ECTAB PO SCH (08:47)
[2017-01-24] MEDS: METOPROLOL TARTRATE 100 MG TAB PO SCH (08:47)
[2017-01-24] MEDS: ALLOPURINOL 100 MG TAB PO SCH (08:47)
[2017-01-24] MEDS: LACTOBACILLUS ACIDOPHILUS (FLORANEX) TAB PO SCH (08:48)
[2017-01-24] MEDS: FUROSEMIDE 40 MG TAB PO SCH (08:48)
[2017-01-24] MEDS: CYANOCOBALAMIN 500 MCG TAB (VIT B-12) PO SCH ×2 (08:48→14:18)
[2017-01-24] MEDS: FERROUS SULFATE 325 MG TAB PO SCH (08:48)
[2017-01-24] MEDS: AMIODARONE 200 MG TAB PO SCH (08:49)
[2017-01-24] MEDS: LISINOPRIL 5 MG TAB PO SCH (08:49)
[2017-01-24] MEDS: DILTIAZEM HCL (TIAzac) 180 MG CAPCR PO SCH (08:49)
[2017-01-24] MEDS: CEROVITE ADV FORMULA TAB PO SCH (08:50)
[2017-01-24] MEDS: POLYETHYLENE (MIRALAX) 17 GM PACK PO SCH (08:51)
[2017-01-24] MEDS ORDERED: RXC5 PO (08:56)
[2017-01-24] MEDS ORDERED: OXYSR10 PO (08:56)
[2017-01-24] MEDS: OXYCODONE HCL 10 MG TABCR (OXYCONTIN) PO SCH (08:58)
[2017-01-24 09:00] VITALS: BP 149/74; PULSE 68
--- NOTE | 2017-01-24 09:04 | Discharge Instructions ---
Discharge Instructions Date of Service January 24, 2017. Admission Reason for Admission: Wound Disruption Discharge Discharge Diagnosis / Problem: Left Knee Wound Dehiscence Discharge Goals Goal(s): Decrease discomfort, Improve function Activity Recommendations Activity Limitations: per Instructions/Follow-up section . Instructions / Follow-Up Instructions / Follow-Up ACTIVITY RECOMMENDATIONS: RESUME YOUR TKA INSTRUCTIONS BELOW SELF CARE INSTRUCTIONS AFTER TOTAL KNEE REPLACEMENT A. You may need to continue a physical therapy program after discharge from the hospital. There are several options available to you. Your doctor will assist you in selecting the best one for you. 1. An out-patient facility 2 to 3 times a week for therapy or home therapy. 2. Continue working on all exercises taught to you in the hospital. Your goals should be to increase bending of your knee to 90 degrees and beyond and to fully straighten your knee. B. You may progress at your own pace from walking with a walker or crutches to a cane; then to no assistive devices. C. Make walking a part of your daily routine. Be up as much as comfortable with rest periods throughout the day. Rest with leg elevation is very important. Use the ice wrap frequently for the first 3-4 weeks. D. There are no restrictions on activities. You may ride in a car, shop, participate in cardiology physician and all social activities. E. Wear the long elastic stockings (NOREEN hose) 20 hours a day for 2 weeks after surgery. They can be removed several times a day for laundering and for a bath. F. You may shower, no tub baths until cleared by your doctor. SPECIAL CARE INSTRUCTIONS: VERY IMPORTANT TO READ AND REVIEW A. There are a few signs you need to watch for after you are home. Call [facility] if you notice any of the followin. Increased severe knee pain. Some pain is expected especially when you exercise. 2. Increased swelling in your leg or knee; pain or swelling of the calf muscle in either lower leg. 3. Any fluid drainage from the incision. 4. Shortness of breath or chest pain. B. Please call [facility] at if you have any concerns or questions about your operation or recovery. The doctor or his nurse will return your call promptly. C. You must take antibiotics before dental work, bladder, bowel or other surgery. Your doctor will provide you with a permanent care to carry describing this precaution. IMPORTANT: * RESUME TAKING YOUR XARELTO DAILY. * CALL IF INCREASED PAIN, REDNESS, DRAINAGE OR FEVER GREATER THAT 101. * WEAR NOREEN HOSE 20 HOURS PER DAY FOR 2 WEEKS. * Prevena- This is a large suction dressing covering your incision. This will help pull any excess drainage from the wound and allow your incision to heal properly. You may shower with this if you can keep the unit outside of the shower. If any bleeding or leakage is noted please call your doctor's office. This will remain on your incision for 7 days and then should be removed. This can be done yourself or by the home nursing staff if applicable. The entire unit is disposable once removed. Once removed, keep incision clean and dry. If redness or drainage is noted, please call your surgeon. . FOLLOW UP VISIT: If appointment is not already scheduled: Please call [facility] to make a follow-up appointment for 2 weeks after your surgery at . FOLLOW UP WITH YOUR PRIMARY CARE PHYSICIAN THIS WEEK TO GET FURTHER LABWORK DONE. PRESCRIPTION PROVIDED BY DR GARDNER. Current Hospital Diet Patient's current hospital diet: AHA Diet (Heart Healthy) Discharge Diet Recommended Diet: AHA Diet (Heart Healthy) Procedures Procedures Performed: Left Knee Irrigation and Dedridement of Superficial Wound Dehiscence Pending Studies Studies pending at discharge: no Laboratory Results Hemoglobin A1c Test 12/21/16 11:08 Range/Units Estimated Average Glucose 114 mg/dl Hemoglobin A1c 5.6 4.5-5.6 % Medical Emergencies . Who to Call and When: Medical Emergencies: If at any time you feel your situation is an emergency, please call 911 immediately. . Non-Emergent Contact Non-Emergency issues call your: Surgeon Call Non-Emergent contact if: temperature is above 101.5, your pain is not controlled, your pain is worsening, wound has increased drainage, wound has increased redness . "Provider Documentation" section prepared by Alex Diane. . VTE Core Measure Inpt VTE Proph given/why not?: Other Anticoagulation, T.E.D. Stockings, SCD's [place] Drug Monitoring Program Search Results: patient reviewed within database, no issues identified
[2017-01-24] MEDS: MoRPHine SULFATE 2 MG/ML CARP IV PRN (09:51)
[2017-01-24 12:16] VITALS: BP 148/63; PULSE 63; TEMP 36.6; O2SAT 96
[2017-01-24 12:30] LABS: HEMATOCRIT 29.1 % (42-52)
[2017-01-24 14:00] VITALS: BP 148/63; PULSE 63; TEMP 36.6; O2SAT 96
--- NOTE | 2017-01-24 14:37 | Family Medicine Progress Note ---
Progress Note Date of Service January 24, 2017. Subjective Pt evaluation today including: conversation w/ patient, physical exam, chart review, lab review Pain: well-controlled Doing well. Denies chest pain, palpitations, shortness of breath Constitutional: No chills, No fever Eyes: No worsening of vision ENT: No hearing loss Respiratory: No cough, No shortness of breath, No sputum Cardiovascular: No chest pain Abdomen: No nausea, No pain, No vomiting Male : No dysuria Neurologic: No memory loss Psychiatric: No depression symptoms Heme: No abnormal bleeding/bruising Medications Current Inpatient Medications Medications (Trade) Dose Ordered Sig/Briana Route Start Time Stop Time Status Last Admin Dose Admin Allopurinol (Zyloprim Tab) 100 mg QAM PO 01/22/17 09:00 02/21/17 08:59 01/24/17 08:47 100 MG Amiodarone HCl (Cordarone Tab) 200 mg QAM PO 01/22/17 09:00 02/21/17 08:59 01/24/17 08:49 200 MG Aspirin (Ecotrin Tab) 81 mg QAM PO 01/22/17 09:00 02/21/17 08:59 01/24/17 08:47 81 MG Atorvastatin Calcium (Lipitor Tab) 40 mg HS PO 01/21/17 21:00 02/20/17 20:59 01/23/17 20:55 40 MG Diltiazem HCl (TIAzac CAP) 180 mg QAM PO 01/22/17 09:00 02/21/17 08:59 01/24/17 08:49 180 MG Furosemide (Lasix Tab) 40 mg BID17 PO 01/22/17 09:00 02/21/17 08:59 01/24/17 08:48 40 MG Gabapentin (Neurontin Tab) 800 mg BID PO 01/21/17 21:00 02/20/17 20:59 01/24/17 08:46 800 MG Lisinopril (Zestril Tab) 5 mg QAM PO 01/22/17 09:00 02/21/17 08:59 01/24/17 08:49 5 MG Metoprolol Tartrate (Lopressor Tab) 100 mg BID PO 01/21/17 21:00 02/20/17 20:59 01/24/17 08:47 100 MG Multivitamins/ Minerals (Multivitamin W/ Minerals Tab) 1 tab QAM PO 01/22/17 09:00 02/21/17 08:59 01/24/17 08:50 1 TAB Oxycodone HCl (Roxicodone Immediate Rel Tab) 5 mg Q4H PRN PO 01/21/17 21:00 02/04/17 20:59 01/24/17 14:18 5 MG Oxycodone HCl (Oxycontin Tab) 10 mg Q12 PO 01/21/17 21:00 02/04/17 20:59 01/24/17 08:58 10 MG Pantoprazole Sodium (Protonix Tab) 40 mg QPM PO 01/21/17 21:00 02/20/17 20:59 01/23/17 20:55 40 MG Cyanocobalamin (Vitamin B-12 Tab) 1,000 mcg QAM PO 01/22/17 09:00 02/21/17 08:59 01/24/17 08:48 1,000 MCG Cyanocobalamin (Vitamin B-12 Tab) 1,000 mcg DAILY@1200 PO 01/22/17 12:00 02/21/17 11:59 01/24/17 14:18 1,000 MCG Ferrous Sulfate (Feosol Tab) 325 mg DAILY PO 01/22/17 09:00 02/21/17 08:59 01/24/17 08:48 325 MG Lactobacillus Acidophilus (Floranex Tab) 4 tab BIDM PO 01/22/17 08:00 02/21/17 07:59 01/24/17 08:48 4 TAB Miscellaneous Information (Order Awaiting Action) 1 ea QS N/A 01/22/17 08:00 02/21/17 07:59 Morphine Sulfate (MoRPHine SULFATE INJ) 2 mg Q2H PRN IV 01/21/17 21:00 02/04/17 20:59 01/24/17 09:51 2 MG Docusate Sodium (coLACE CAP) 100 mg BID PO 01/23/17 10:30 02/22/17 10:29 01/24/17 08:45 100 MG Polyethylene (Miralax Powder Packet) 17 gm BID PO 01/23/17 10:30 02/22/17 10:29 01/24/17 08:51 17 GM Objective Vital Signs Date Time Temp Pulse Resp B/P Pulse Ox O2 Delivery O2 Flow Rate FiO2 01/24/17 14:00 36.6 63 18 96 Room Air 01/24/17 12:16 36.6 63 18 148/63 96 Room Air 01/24/17 09:00 68 149/74 01/24/17 08:31 37.0 60 18 142/82 97 Room Air 01/24/17 08:22 Room Air 01/24/17 08:02 Room Air 01/24/17 00:35 Room Air 01/23/17 23:03 36.8 62 16 130/65 98 Room Air 01/23/17 15:45 Room Air 01/23/17 15:25 36.6 57 20 105/57 100 Room Air Physical Exam General Appearance: WD/WN, no apparent distress Eyes: normal inspection ENT: normal ENT inspection, hearing grossly normal Respiratory/Chest: chest non-tender, lungs clear, normal breath sounds, no respiratory distress, no accessory muscle use Cardiovascular: regular rate, rhythm Abdomen: normal bowel sounds, non tender, soft Extremities: + pertinent finding (left knee status post incision and debridement) Neurologic/Psychiatric: alert, normal mood/affect, oriented x 3 Skin: normal color Laboratory Results 01/24/17 12:09 Test 01/23/17 19:00 Stool Occult Blood NEGATIVE (NEGATIVE) Assessment and Plan 66-year-old male with a past medical history of coronary artery disease with stent placement, hypertension, atrial fibrillation on Xarelto, gout, GERD, peripheral neuropathy, status post left TKA in early january , status post right AKA wound repair about 2 weeks ago presented to the ER after he had an injury to his left knee which led to dehiscence of his incision leading to significant amount of blood loss . He was found to have a hemoglobin of 7.1 in the ER and had received 2 units of PRBC transfusion. He had been asymptomatic and denied any complaints of chest pain, palpitations, lightheadedness or dizziness. Acute blood loss anemia: Status post 2 units PRBC transfusion - Likely secondary to wound dehiscence while on Xarelto from a traumatic injury - Hemoglobin on presentation at 7.1, today at 8.2. No active bleeding - Fecal occult blood negative - Recommended to continue ferrous sulfate and vitamin B12 supplementation - Recheck CBC in 2-3 days and follow-up with PCP Left knee TKA wound dehiscence: - incision and debridement of wound dehiscence - management per orthopedics - PT Coronary artery disease: - Continue Lopressor 100 mg twice daily, atorvastatin 40 mg daily, lisinopril Hypertension: Continue lisinopril 5 mg daily Atrial fibrillation: Rate control with amiodarone and diltiazem, anti-coagulation Xarelto (currently held) Hyperlipidemia: Continue atorvastatin Gout Continue allopurinol GERD: - continue Protonix DVT prophylaxis: SCDs Avoid chemical and regulation considering bleeding Full code discharge today if okay by orthopedics History Resident Physician Supervision Note: I was present with Dr. Dai during the history and exam. I discussed the case with the resident and agree with the findings and plan as documented in the note. Any exceptions or clarifications are listed here. Pt seen and examined at bedside. No acute events overnight. Up w/ PT without complaints of lightheadedness, CP/SOB, palpitations, nausea. nl BM w/ FOBT negative General Appearance: WD/WN, no apparent distress Respiratory: chest non-tender, lungs clear, normal breath sounds, no respiratory distress Cardiovascular: normal peripheral pulses, regular rate, rhythm, no edema, no murmur Gastrointestinal: normal bowel sounds, non tender, soft, no organomegaly Assessment/Plan 66 y/o male h/o CAD w/ stent placement, HTN, a. fib on xarelto consulted for anemia in the setting of acute blood loss Anemia - transfused 2 UPRBC - Hgb stable, FOBT negative, continue FeSO4, B12 and repeat CBC as outpatient L knee TKA w/ wound dehiscence 2/2 trauma - per primary team h/o CAD - continue metoprolol BID, statin, lisinopril HTN - medications as above Atrial fibrillation - rate controlled - continue amio and dilt, restart xarelto Hyperlipidemia - continue atorvastatin Gout - continue allopurinol GERD - continue Protonix DVT PPX - SCD FULL CODE Resident Tracking Resident Involvement: Resident Care Provided Care Provided: Adult [facility]
--- NOTE | 2017-01-30 17:00 | DISCHARGE SUMMARY ---
DISCHARGE DIAGNOSIS: Left knee wound disruption. SECONDARY DIAGNOSIS: None. CONSULTATIONS: Dr. Rajan and Dr. Dai. COMPLICATIONS: None. PROCEDURE: The patient underwent an I\T\D left knee wound dehiscence with Dr. Bauer on 01/22/2017. BRIEF HISTORY: Please see previously dictated history and physical. HOSPITAL SUMMARY: The patient was admitted on 01/22/2017 after sustaining a fall and disrupting his left knee wound incision. The patient was holding on his Xarelto. He was n.p.o. for I\T\D which went without complication. Postop day 1, the patient was feeling well without complaints. He denied chest pain or shortness of breath. Vital signs were stable. He was afebrile. Dressing was clean, dry and intact. He was neurovascularly intact. Calves were soft and nontender. Hemoglobin was 7.8. The patient began physical therapy. He was to continue knee immobilizer when out of bed. Postop day 2, the patient continued to improve. He denied chest pain or shortness of breath. Hemoglobin was down to 7.4 from 8.4, stool culture was negative. Vital signs were stable. He was afebrile. Dressing was clean, dry and intact. He was neurovascularly intact. Calves were soft and nontender. He had a Prevena. The patient received 2 units of blood. He was discharged to home later that day in stable condition. For further review please see the chart. Lab, x-ray data and discharge instructions as per chart.
[2017-03-21] MEDS ORDERED: DILT-113 PO (09:09)
[2017-03-21] MEDS ORDERED: KRIL1CAP18 PO (09:09)
[2017-03-21] MEDS ORDERED: MULT-610 PO (09:09)
[2017-03-21] MEDS ORDERED: METO100T14 PO (09:09)
[2017-03-21] MEDS ORDERED: CYAN100020 PO (09:09)
[2017-03-21] MEDS ORDERED: ASPI81TA28 PO (09:09)
[2017-03-21] MEDS ORDERED: PANT40TA PO (10:11)
[2017-03-21] MEDS ORDERED: AMIO200T4 PO (10:11)
[2017-03-21] MEDS ORDERED: AMX500 PO (15:23)
[2017-03-21] MEDS ORDERED: FURO40TA3 PO (15:23)
[2017-03-21] MEDS ORDERED: ATOR80TA PO (15:23)
[2017-03-21] MEDS ORDERED: ALL100 PO (15:23)
[2017-03-21] MEDS ORDERED: LSN5 PO (15:23)
[2017-03-21] MEDS ORDERED: GABA1CAP5 PO (15:23)
[2017-03-21] MEDS ORDERED: POTA1TAB PO (15:23)
[2017-03-21] MEDS ORDERED: FERR1TAB62 PO (19:15)
[2017-03-21] MEDS ORDERED: OXYC-738 PO (19:19)
== END 2017-01-24 15:45 | disposition home or self-care (01) | DRG 920 ==
LOC: ENRESERVTM → ENRESERVDT → C.EDB 19:43 → C.MSW 21:06 → C.2E 23:44 → C.MSW 01-22 16:16
PROC: 0HQLXZZ Repair Left Lower Leg Skin, External Approach (ICD-10-PCS; 2017-01-21)
PROC: 0JCP0ZZ Extirpation of Matter from Left Lower Leg Subcutaneous Tissue and Fascia, Open Approach (ICD-10-PCS; principal; 2017-01-22 07:45)
DX: T81.31XA Disruption of external operation (surgical) wound, not elsewhere classified, initial encounter (principal); D62 Acute posthemorrhagic anemia; I48.91 Unspecified atrial fibrillation; I25.10 Atherosclerotic heart disease of native coronary artery without angina pectoris; Z79.82 Long term (current) use of aspirin; Z96.652 Presence of left artificial knee joint; Z95.5 Presence of coronary angioplasty implant and graft; I25.2 Old myocardial infarction; I10 Essential (primary) hypertension; G62.9 Polyneuropathy, unspecified; K21.9 Gastro-esophageal reflux disease without esophagitis; I50.9 Heart failure, unspecified; I27.2 Other secondary pulmonary hypertension; I34.0 Nonrheumatic mitral (valve) insufficiency; M1A.9XX0 Chronic gout, unspecified, without tophus (tophi); Y92.009 Unspecified place in unspecified non-institutional (private) residence as the place of occurrence of the external cause; Z98.890 Other specified postprocedural states; W10.8XXA Fall (on) (from) other stairs and steps, initial encounter

== ENCOUNTER 2017-03-09 13:58 | Inpatient (IN) | payer OTHER ==
[~2017-03-09] VITALS: Ht 177.8 cm; Wt 92.0 kg
[~2017-03-09 13:58] MED LIST changes: -OXYSR10 PO
[2017-03-09 15:11] VITALS: BP 148/73; PULSE 70; TEMP 36.9; O2SAT 98
[2017-03-09] MEDS ORDERED: NURSING VERBAL MED ORDER ONE (15:30)
[2017-03-09] MEDS ORDERED: MoRPHine SULFATE 10 MG/ML CARP/VIAL IV PRN (15:45)
[2017-03-09] MEDS ORDERED: MoRPHine SULFATE 2 MG/ML CARP IV PRN (15:45)
[2017-03-09] MEDS: MoRPHine SULFATE 4 MG/ML 1 ML CARP\\VIAL IV PRN ×2 (15:46→19:43)
[2017-03-09] MEDS ORDERED: VANCOMYCIN CONSULT ACTIVE PRN (16:00)
[2017-03-09 16:09] VITALS: BP 148/73; PULSE 70; TEMP 36.9; O2SAT 98; Ht 177.8 cm; Wt 92.0 kg
[2017-03-09] MEDS ORDERED: PATIENT'S HEIGHT AND/OR WEIGHT NEEDED SCH (16:15)
[2017-03-09] MEDS ORDERED: VANCOMYCIN INJ 2,300 MG in SODIUM CHLORIDE 0.9% 500ML 500 ML IV ONE (16:15)
[2017-03-09 16:29] LABS: BASO % 0.1 %; BASO ABS # 0.01 K/uL (0-0.2); EOS % 0.7 %; HEMATOCRIT 27.9 % (42-52); IG% 0.1 %; LYMPH % 13.2 %; LYMPH ABS # 0.98 K/uL (1.2-3.4); MEAN CELL VOLUME 80.6 fL (80-100); MEAN CORPUSCULAR HEMOGLOBIN 24.6 pg (25-34); MEAN PLATELET VOLUME 10.1 fL (7.4-10.4); MONO % 8.8 %; NEUT % 77.1 %; PLATELET COUNT 289 K/uL (130-400); RED BLOOD COUNT 3.46 M/uL (4.7-6.1); WHITE BLOOD COUNT 7.42 K/uL (4.8-10.8)
[2017-03-09 16:31] LABS: MEAN CORPUSCULAR HGB CONC 30.5 g/dl (32-36)
[2017-03-09] MEDS ORDERED: SILDENAFIL PO (16:40)
[2017-03-09] MEDS ORDERED: LPT40 (16:40)
[2017-03-09] MEDS ORDERED: HYDR-5688 PO (16:40)
[2017-03-09] MEDS ORDERED: ULT50 PO (16:40)
--- NOTE | 2017-03-09 16:46 | History and Physical ---
History & Physical Date Mar 09, 2017. Chief Complaint Left TKA infection History of Present Illness The patient is a 66 year old male with complaints of left knee pain and swelling. Pt had TKA ~ 8 weeks ago and a fall with wound dehisience 2 weeks after initial surgery. Pt seen in office today with pain and swelling. Knee aspiration positive for purulence. Pt admitted for IV abx, surgical I&D, excisional arthroplasty and placement antibiotic spacer. Past Medical/Surgical History Medical Problems: (1) Acute systolic heart failure (2) Atrial fibrillation with RVR (3) Carpal tunnel syndrome (4) Left knee DJD (5) No active medical problems (6) Wound disruption Surgical Problems: (1) Post-operative state Additional History Hepatic Disease: No Endocrine Disorder: No Kidney Disease: No Hypertension: Yes Heart Disease: Yes (Atrial fibrillation, CAD, Diastolic CHF, Pulmonary HTN, Mitral regurgitation) Other: Hyperlipidemia, GERD, Gout Allergies Coded Allergies: No Known Allergies (Unverified , 01/04/17) Home Medications Scheduled Allopurinol (Allopurinol), 100 MG PO QAM Amiodarone Hcl (Cordarone), 200 MG PO QAM Aspirin (Aspirin Ec), 81 MG PO QAM Atorvastatin (Atorvastatin Calcium), HS Atorvastatin Calcium (Lipitor), 40 MG PO HS Cyanocobalamin (Vitamin B12), 1,000 MCG PO QD@1200 Cyanocobalamin (Vitamin B12), 1,000 MCG PO QAM Diltiazem Hcl Ext Rel (Tiazac), 180 MG PO QAM Ferrous Sulfate (Kp Ferrous Sulfate), 325 MG PO QAM Furosemide (Lasix), 80 MG PO BID17 Gabapentin (Neurontin), 800 MG PO BID Krill Oil (Megared [place]-3 Krill Oil 500 mg), 1 CAP PO QD@1200 Lisinopril (Lisinopril), 5 MG PO QAM Metoprolol Tartrate (Lopressor) (Lopressor), 100 MG PO BID Multiple Vitamins W/ Minerals (Centrum Adults), 1 TAB PO QAM Pantoprazole (Protonix), 40 MG PO QPM Potassium Gluconate (Potassium Gluconate), 595 MG PO QAM Probiotic Product (Probiotic), 1 CAP PO BID Rivaroxaban (Xarelto), 20 MG PO QPM Tadalafil (Cialis), 5 MG PO QAM Tramadol HCl (Tramadol HCl), 1 TAB PO BID Scheduled PRN Amoxicillin (Amoxicillin), 2,000 MG PO UD PRN for Pretreat-Prior to Dental Work Hydrocodone/Acetaminophen 5MG/325MG (Anthony 5MG/325MG), 1 TABLET PO QID PRN for Pain Miscellaneous Medications [sidenafil citrate], 50 MG PO Physical Examination Skin: warm/dry Eyes: normal inspection, EOMI ENT: normal ENT inspection Head: normocephalic Neck: supple Respiratory/Chest: lungs clear Cardiovascular: regular rate, rhythm Abdomen / GI: normal bowel sounds Extremities: + pertinent finding (Left knee pain and swelling) Addiitonal Comments: Xrays: TKA in place with new lucency tibial component Diagnosis Septic left TKA Plan of Treatment Left TKA I&D, excisional arthroplasty, placement antibiotic spacer
[2017-03-09 16:55] LABS: ANISOCYTOSIS PRESENT; COMPLETE YES
[2017-03-09] MEDS: ACETAMINOPHEN 500 MG TAB PO SCH ×2 (16:56→21:29)
[2017-03-09 16:58] LABS: BUN/CREATININE RATIO 18.6 (10-20); CREATININE 0.62 mg/dl (0.60-1.40); POTASSIUM 3.7 mmol/L (3.5-5.1)
[2017-03-09 16:59] LABS: C-REACTIVE PROTEIN 11.2 mg/dl (0-0.29); CALCIUM 9.3 mg/dl (8.5-10.1)
--- NOTE | 2017-03-09 17:00 | Medical Student: [facility] ---
Med Student History & Physical Date & Time of Service: Mar 09, 2017 at 16:58 Chief Complaint: Infected Total Knee - Left Primary Care Physician: Lopez Guerrero M.D. History of Present Illness Source: patient, family Mr. Birmingham is a 66 year old male with a PMH significant for paroxysmal A fib, CAD s/p catheterization & 4 stents (mid LAD, mid RCA, prox RCA, and mid RCA), diastolic CHF, HTN, hyperlipidemia, pulmonary HTN, MR, TR, GERD, gout, total right knee arthroplasty in 2013, and b/l carotid artery stenosis (40-59%) who presents today as a pre-op for septic left knee. The patient was recently admitted from January 04- for left knee total arthroplasty by Dr. Alex. He was subsequently admitted from January 21- for opening dehiscence of his wound after a fall. On January 22, Dr. Bauer performed an exploration and surgical repair of the superficial wound dehiscence. Both operations were complicated by anemia, but there is no history of pRBC transfusion. A couple weeks after the surgical repair, the patient started experiencing bleeding from the surgical site. More recently within the past couple of days, he noticed extreme pain, swelling, erythema, and warmth of his left knee. He describes 1 week of feeling cold, but he never took his temperature. He saw Dc Hardy this morning and X-ray was concerning for septic arthritis. On admission here, he was afebrile and hypertensive at 148/73. He was given 2300 mg vancomycin and is on morphine 6 mg q2hr and oxycodone 1-2 tablets q4hr for pain. He denies HOANG, chest pain, SOB, coughing, wheezing, abdominal changes, diarrhea, constipation, dysuria, weakness or paraesthesias. Past Medical/Surgical History 1) Paroxysmal A fib 2) CAD s/p catheterization and 4 stents 3) Diastolic CHF 4) HTN 5) Hyperlipidemia 6) Pulmonary HTN 7) MR 8) TR 9) GERD 10) Gout 11) Carotid artery stenosis (40-59%) b/l Family History Sisters: breast cancer Mother: alive, hx of [place] Father: of non-Hodgkin's lymphoma Social History Smoking Status: Never Smoker Smokeless Tobacco Use: Yes (quit 30 years ago ) Alcohol Use: socially Drug Use: none Marital Status: Occupational Status: retired Allergies Coded Allergies: No Known Allergies (Unverified , 01/04/17) Medications Allopurinol (Allopurinol), 100 MG PO QAM Amiodarone Hcl (Cordarone), 200 MG PO QAM Amoxicillin (Amoxicillin), 2,000 MG PO UD PRN for Pretreat-Prior to Dental Work Aspirin (Aspirin Ec), 81 MG PO QAM Atorvastatin (Atorvastatin Calcium), HS Atorvastatin Calcium (Lipitor), 40 MG PO HS Cyanocobalamin (Vitamin B12), 1,000 MCG PO QD@1200 Cyanocobalamin (Vitamin B12), 1,000 MCG PO QAM Diltiazem Hcl Ext Rel (Tiazac), 180 MG PO QAM Ferrous Sulfate (Kp Ferrous Sulfate), 325 MG PO QAM Furosemide (Lasix), 80 MG PO BID17 Gabapentin (Neurontin), 800 MG PO BID Hydrocodone/Acetaminophen 5MG/325MG (Schlater 5MG/325MG), 1 TABLET PO QID PRN for Pain Krill Oil (Megared [place]-3 Krill Oil 500 mg), 1 CAP PO QD@1200 Lisinopril (Lisinopril), 5 MG PO QAM Metoprolol Tartrate (Lopressor) (Lopressor), 100 MG PO BID Multiple Vitamins W/ Minerals (Centrum Adults), 1 TAB PO QAM Pantoprazole (Protonix), 40 MG PO QPM Potassium Gluconate (Potassium Gluconate), 595 MG PO QAM Probiotic Product (Probiotic), 1 CAP PO BID Rivaroxaban (Xarelto), 20 MG PO QPM Tadalafil (Cialis), 5 MG PO QAM Tramadol HCl (Tramadol HCl), 1 TAB PO BID [sidenafil citrate], 50 MG PO Review of Systems Constitutional: + chills, No fever, No sweats, No weight loss, No weakness Eyes: No worsening of vision ENT: No hearing loss Respiratory: No cough, No sputum, No wheezing, No shortness of breath Cardiovascular: No chest pain, No edema, No palpitations Abdomen: No pain, No nausea, No vomiting, No diarrhea, No constipation Musculoskeletal: + joint pain (left knee ), + swelling (left knee), No muscle pain Genitourinary - Male: No hematuria, No dysuria, No urinary frequency Neurologic: No memory loss Endocrine: No fatigue Integumentary: No rash Physical Exam Vital Signs (24 Hours) Date Time Temp Pulse Resp B/P (MAP) Pulse Ox O2 Delivery O2 Flow Rate FiO2 03/09/17 16:09 36.9 70 18 148/73 98 Room Air 03/09/17 15:11 36.9 70 18 148/73 (98) 98 Room Air General Appearance: WD/WN, no apparent distress Head: normocephalic, atraumatic Eyes: PERRL, EOMI ENT: normal ENT inspection, pharynx normal Neck: supple, no adenopathy, thyroid normal, no JVD Respiratory/Chest: lungs clear, normal breath sounds, no respiratory distress, no accessory muscle use Cardiovascular: regular rate, rhythm, no edema, no gallop, no JVD, no murmur, normal peripheral pulses, + pertinent finding (right carotid bruit ) Abdomen/GI: normal bowel sounds, non tender, soft, no organomegaly Extremities/Musculoskelatal: normal inspection, no calf tenderness, normal capillary refill, no pedal edema Neurologic/Psych: build manager II-XII nml as tested, no motor/sensory deficits Skin: normal color, warm/dry, no rash Lymphatic: no adenopathy Diagnostics Laboratory Results Results Past 24 Hours Test 03/09/17 00:00 03/09/17 16:11 Range/Units White Blood Count 7.42 4.8-10.8 K/uL Red Blood Count 3.46 4.7-6.1 M/uL Hemoglobin 8.5 14.0-18.0 g/dL Hematocrit 27.9 42-52 % Mean Corpuscular Volume 80.6 80-100 fL Mean Corpuscular Hemoglobin 24.6 25-34 pg Mean Corpuscular Hemoglobin Concent 30.5 32-36 g/dl Platelet Count 289 130-400 K/uL Mean Platelet Volume 10.1 7.4-10.4 fL Neutrophils (%) (Auto) 77.1 % Lymphocytes (%) (Auto) 13.2 % Monocytes (%) (Auto) 8.8 % Eosinophils (%) (Auto) 0.7 % Basophils (%) (Auto) 0.1 % Neutrophils # (Auto) 5.72 1.4-6.5 K/uL Lymphocytes # (Auto) 0.98 1.2-3.4 K/uL Monocytes # (Auto) 0.65 0.11-0.59 K/uL Eosinophils # (Auto) 0.05 0-0.5 K/uL Basophils # (Auto) 0.01 0-0.2 K/uL RDW Standard Deviation 46.5 36.4-46.3 fL RDW Coefficient of Variation 15.9 11.5-14.5 % Immature Granulocyte % (Auto) 0.1 % Immature Granulocyte # (Auto) 0.01 0.00-0.02 K/uL Anisocytosis PRESENT Erythrocyte Sedimentation Rate 66 0-14 mm/hr Microbiology Results 03/09/17 Gram Stain, Received Pending 03/09/17 Bacterial Culture, Received Pending Impression Assessment and Plan Assessment: Mr. Birmingham is a 66 year old male with a PMH significant for paroxysmal A fib, CAD s/p catheterization & 4 stents (mid LAD, mid RCA, prox RCA , and mid RCA), diastolic CHF, HTN, hyperlipidemia, pulmonary HTN, MR, TR, GERD , gout, total right knee arthroplasty in 2013, and b/l carotid artery stenosis ( 40-59%) who presents today as a pre-op for septic left knee. His various medical comorbidities appear stable. Last echocardiogram in 2015 showed 50 % EF, dilated left atrium, MR, TR and normal systolic function with no wall motion abnormalities. More recently in November 2016, nuclear stress test showed EF of 73% and mild dilation of left ventricle without reversible ischemia. On review medical records, he tolerated the TKA and subsequent surgical repair of wound dehiscence well. His only complication was anemia. Hgb today was 8.5. Plan: Left knee septic arthritis -gram stain & culture of left knee synovial fluid pending -continue IV vancomycin -surgical I & D w/ excisional arthroplasty & placement of antibiotic spacer AM -keep NPO overnight -patient has not taken Xarelto since 7/6 AM, hold 7/8 AM as well -hold lisinopril AM -possibly hold diltiazem AM -pre-op workup: EKG & CXR, CMP & CBC AM Paroxysmal A fib -continue metoprolol 100 mg BID -hold Xarelto for operation -continue diltiazem 180 mg PO daily -continue amiodarone 200 mg PO daily Diastolic CHF/HTN -continue metoprolol 100 mg PO BID -hold Lasix AM Hyperlipidemia -continue atorvastatin 40 mg PO daily Gout -continue allopurinol 100 mg PO daily GERD -continue pantoprazole 40 mg PO daily Erectile Dysfunction -continue cialis 5 mg PO daily -continue sildenafil 50 mg PO daily Pulmonary HTN -continue cialis 5 mg PO daily -continue sildenafil 50 mg PO daily -hold Lasix AM Advanced Directives Existing Living Will: Yes Existing Power of Laboratory Worker: Yes
[2017-03-09 17:05] LABS: SYNOVIAL FLUID APPEARANCE BLOODY; SYNOVIAL FLUID COLOR RED; SYNOVIAL FLUID MONONUC RELAT 4.4 %; SYNOVIAL FLUID POLYNUC RELAT 95.6 %
--- NOTE | 2017-03-09 18:32 | DIAGNOSTIC IMAGING REPORT ---
CHEST ONE VIEW PORTABLE CLINICAL HISTORY: Preoperative chest COMPARISON STUDY: 01/21/2017 FINDINGS: The heart is the upper limits of normal in size. There is no failure. There is no focal pulmonary consolidation. No pleural effusions are visualized. Postsurgical changes involve the right shoulder.[ IMPRESSION: No active disease in the chest. Electronically signed by: Santana Sauceda M.D. 03/09/2017 6:31 PM Dictated Date/Time: 03/09/2017 6:30 PM
--- NOTE | 2017-03-09 18:48 | Pharmacy Progress Note ---
Pharmacy Abx Initial Consult Date of Service Mar 09, 2017. Pharmacy Dosing Scope Date of Consult: 03/09/17 Consultation requested by: Dony Hardy PA-C Pharmacy is consulted to initiate vancomycin IV dosing therapy, order appropriate labs and adjust drug dose/frequency. Subjective The patient is a 66 year old male admitted on Mar 09, 2017 at 14:37 with an infect knee s/p TKA at the beginning of January. Objective Height (Feet): 5 Height (Inches): 10.00 Weight (Kilograms): 92.000 Vital Signs (Past 12Hrs) Vital Signs Past 12 Hours Date Time Temp Pulse Resp B/P (MAP) Pulse Ox O2 Delivery O2 Flow Rate FiO2 03/09/17 16:09 36.9 70 18 148/73 98 Room Air 03/09/17 15:11 36.9 70 18 148/73 (98) 98 Room Air Lab Results (24Hrs) Laboratory Tests (24 Hours) Test 03/09/17 16:11 C-Reactive Protein 11.20 mg/dl (0-0.29) H Erythrocyte Sedimentation Rate 66 mm/hr (0-14) H White Blood Count 7.42 K/uL (4.8-10.8) Red Blood Count 3.46 M/uL (4.7-6.1) L Hemoglobin 8.5 g/dL (14.0-18.0) L Hematocrit 27.9 % (42-52) L Mean Corpuscular Volume 80.6 fL (80-100) Mean Corpuscular Hemoglobin 24.6 pg (25-34) L Mean Corpuscular Hemoglobin Concent 30.5 g/dl (32-36) L Platelet Count 289 K/uL (130-400) Mean Platelet Volume 10.1 fL (7.4-10.4) Neutrophils (%) (Auto) 77.1 % Lymphocytes (%) (Auto) 13.2 % Monocytes (%) (Auto) 8.8 % Eosinophils (%) (Auto) 0.7 % Basophils (%) (Auto) 0.1 % Neutrophils # (Auto) 5.72 K/uL (1.4-6.5) Lymphocytes # (Auto) 0.98 K/uL (1.2-3.4) L Monocytes # (Auto) 0.65 K/uL (0.11-0.59) H Eosinophils # (Auto) 0.05 K/uL (0-0.5) Basophils # (Auto) 0.01 K/uL (0-0.2) Micro Results Date/Time Source Procedure Growth Status 03/09/17 00:00 Joint Fluid/Space (Synovial) Knee Left Gram Stain Pending Received 03/09/17 00:00 Joint Fluid/Space (Synovial) Knee Left Bacterial Culture Pending Received Risk Factors for Resistance * Hospitalization for 48 hours or more within the past 90 days Assessment & Plan Assessment 66 year old male admitted with an infected knee s/p TKA. Plan VANCOMYCIN for treatment of infection left knee Vancomycin IV * Loading dose: 2300 mg (25 mg/kg) * Maintenance dose: 1400 mg IV (8 mg/kg) every 8 hours (population pharmacokinetics suggest half-life of 8 hours and elimination rate of 0.087 hr-1 ) * Goal trough level for infected knee : 15 to 20 mcg/mL * Trough ordered for 03/10/17 Pharmacy will continue to follow and will adjust dose/frequency as necessary. Thank you.
--- NOTE | 2017-03-09 19:15 | Medical Consult ---
Consultation Date of Consultation: Mar 09, 2017. Attending Physician: Mehran Alex M.D. Reason for Consultation: Preoperative assessment postoperative medical management. History of Present Illness The patient is a 66-year-old male who was admitted to [facility] under the orthopedic service for removal of hardware of a previous left total knee arthroplasty and placement of antibiotic spacer. On January 04, he underwent a left total knee arthroplasty, and then was admitted on January 21 for surgical treatment of an open dehiscence of a wound after a fall. A few weeks after the surgical repair , the patient began bleeding from the site, and within the past week, he's noticed the development of extreme pain, swelling, redness and warmth of his left knee. He was seen by Dony Hardy at the orthopedic office the morning of admission, with x-ray concerning for septic arthritis, and direct admission was made to orthopedic service. So far he has been administered vancomycin 2300 mg IV. Past Medical/Surgical History Medical Problems: (1) Abdominal pain Status: Acute (2) Fall from slip, trip, or stumble Status: Acute (3) Hypoxia Status: Acute (4) Pancreatitis Status: Acute (5) Pulmonary edema Status: Acute (6) Respiratory distress Status: Acute (7) Surgical wound dehiscence Status: Acute (8) Vomiting Status: Acute Social History Problems: (1) Status post left knee replacement Status: Acute Family History No significant family history Noncontributory Social History Smoking Status: Never Smoker Smokeless Tobacco Use: Yes (quit 30 years ago ) Alcohol Use: socially Drug Use: none Marital Status: Housing Status: lives with family Occupation Status: retired Allergies Coded Allergies: No Known Allergies (Unverified , 01/04/17) Home Medications Allopurinol 100 mg by mouth every morning Aspirin 81 mg by mouth every morning Atorvastatin 40 mg by mouth at bedtime Cyanocobalamin 1000 g by mouth every morning Diltiazem extended release 180 mg by mouth every morning Ferrous sulfate 325 mg by mouth every morning Furosemide 80 mg by mouth twice a day Gabapentin 800 mg by mouth twice a day Hydrocodone/acetaminophen 5/325, 1 by mouth 4 times a day when necessary for pain Krill oil 1 capsule by mouth daily Lisinopril 5 mg by mouth every morning Metoprolol tartrate 100 mg by mouth twice a day Multivitamin with minerals every morning Pantoprazole 40 mg by mouth every evening Potassium gluconate 595 mg by mouth every morning. Probiotics 1 capsule by mouth twice a day Xarelto 20 mg by mouth every evening. Cialis 5 mg by mouth every morning Tramadol 50 mg by mouth twice a day Current Inpatient Medications Current Inpatient Medications Medications (Trade) Dose Ordered Sig/Briana Route Start Time Stop Time Status Last Admin Dose Admin Dextrose/Sodium Chloride 1,000 ml @ 100 mls/hr Q10H IV 03/10/17 00:00 04/09/17 00:00 Morphine Sulfate (MoRPHine SULFATE INJ) 2 mg Q2H PRN IV 03/09/17 15:45 03/23/17 15:44 Morphine Sulfate (MoRPHine SULFATE INJ) 4 mg Q2H PRN IV 03/09/17 15:45 03/23/17 15:44 03/09/17 15:46 4 MG Morphine Sulfate (MoRPHine SULFATE INJ) 6 mg Q2H PRN IV 03/09/17 15:45 03/23/17 15:44 Oxycodone HCl (Roxicodone Immediate Rel Tab) `1-2 tabs for pain 1 tab ... Q4H PRN PO 03/09/17 15:45 03/23/17 15:44 Acetaminophen (Tylenol Tab) 1,000 mg Q8 PO 03/09/17 16:00 04/08/17 15:59 03/09/17 16:56 1,000 MG Allopurinol (Zyloprim Tab) 100 mg DAILY PO 03/10/17 09:00 04/09/17 08:59 Amiodarone HCl (Cordarone Tab) 200 mg DAILY PO 03/10/17 09:00 04/09/17 08:59 Diltiazem HCl (Cardizem Cd Cap) 180 mg DAILY PO 03/10/17 09:00 04/09/17 08:59 Lisinopril (Zestril Tab) 5 mg DAILY PO 03/10/17 09:00 04/09/17 08:59 Cyanocobalamin (Vitamin B-12 Tab) 1,000 mcg DAILY PO 03/10/17 09:00 04/09/17 08:59 Atorvastatin Calcium (Lipitor Tab) 40 mg HS PO 03/09/17 21:00 04/08/17 20:59 Multivitamins (Multivitamin Tab) 1 tab QAM PO 03/10/17 09:00 04/09/17 08:59 Gabapentin (Neurontin Tab) 800 mg BID PO 03/09/17 21:00 04/08/17 20:59 Metoprolol Tartrate (Lopressor Tab) 100 mg BID PO 03/09/17 21:00 04/08/17 20:59 Ondansetron HCl 6 mg/Dextrose 53 ml @ 216 mls/hr Q6H PRN IV 03/09/17 16:00 04/08/17 15:59 Vancomycin HCl (Consult) 1 ea UD PRN N/A 03/09/17 16:00 04/08/17 15:59 Vancomycin HCl 1400 mg/Sodium Chloride 528 ml @ 200 mls/hr Q8H IV 03/10/17 02:00 04/21/17 01:59 Review of Systems The patient denies chest pain, palpitations, shortness of breath, cough, sore throat, fevers, chills, sweats, weight change, nausea, vomiting, abdominal pain , pelvic pain, blood in urine or stool, dysuria, urinary frequency or urgency, headache, memory loss. The review of systems is otherwise negative other than for that already noted above, and at least 10 systems have been reviewed. Physical Exam Date Time Temp Pulse Resp B/P (MAP) Pulse Ox O2 Delivery O2 Flow Rate FiO2 03/09/17 16:09 36.9 70 18 148/73 98 Room Air 03/09/17 15:11 36.9 70 18 148/73 (98) 98 Room Air The patient is awake, well-developed and adequately nourished, alert and oriented 3, normocephalic and atraumatic, lying in bed and in no acute distress. HEENT--PERRL, EOMI, mucous membranes and oropharynx normal. Neck--supple, no JVD or bruits, thyroid normal, trachea midline, no adenopathy. Heart--normal S1 and S2, no extra beats, no murmurs, rubs or gallops. Lungs--clear bilaterally with good air movement, no respiratory distress, no accessory muscle use. Abdomen--normal bowel sounds and soft, nontender and nondistended, no hernias or masses, no organomegaly. Extremities--no cyanosis, clubbing. Left lower extremity with trace pitting edema. Dermatologic--normal skin turgor, normal color, warm and dry, no abnormal lymph nodes, no rash. Neurologic--cranial nerves II through XII grossly intact, motor and sensory examination normal. Rheumatologic--left knee swollen, erythematous, warm and tender. Psychiatric--normal affect. Laboratory Results Last 24 Hours Test 03/09/17 00:00 03/09/17 16:11 Synovial Fluid Source KNEE Synovial Fluid Color RED Synovial Fluid Appearance BLOODY Synovial Fluid WBC [id number] /uL Synovial Fluid RBC 14969 /uL Synovial Fluid Polynuclear WBCs % 95.6 % Synovial Fluid Mononuclear WBCs % 4.4 % White Blood Count 7.42 K/uL Red Blood Count 3.46 M/uL Hemoglobin 8.5 g/dL Hematocrit 27.9 % Mean Corpuscular Volume 80.6 fL Mean Corpuscular Hemoglobin 24.6 pg Mean Corpuscular Hemoglobin Concent 30.5 g/dl Platelet Count 289 K/uL Mean Platelet Volume 10.1 fL Neutrophils (%) (Auto) 77.1 % Lymphocytes (%) (Auto) 13.2 % Monocytes (%) (Auto) 8.8 % Eosinophils (%) (Auto) 0.7 % Basophils (%) (Auto) 0.1 % Neutrophils # (Auto) 5.72 K/uL Lymphocytes # (Auto) 0.98 K/uL Monocytes # (Auto) 0.65 K/uL Eosinophils # (Auto) 0.05 K/uL Basophils # (Auto) 0.01 K/uL RDW Standard Deviation 46.5 fL RDW Coefficient of Variation 15.9 % Immature Granulocyte % (Auto) 0.1 % Immature Granulocyte # (Auto) 0.01 K/uL Anisocytosis PRESENT Erythrocyte Sedimentation Rate 66 mm/hr Sodium Level 137 mmol/L Potassium Level 3.7 mmol/L Chloride Level 102 mmol/L Carbon Dioxide Level 28 mmol/L Anion Gap 7.0 mmol/L Blood Urea Nitrogen 12 mg/dl Creatinine 0.62 mg/dl Est Creatinine Clear Calc Drug Dose 133.6 ml/min Estimated GFR () 119.8 Estimated GFR (Non- 103.4 BUN/Creatinine Ratio 18.6 Random Glucose 97 mg/dl Calcium Level 9.3 mg/dl C-Reactive Protein 11.20 mg/dl Assessment & Plan Left knee septic arthritis--the patient is to undergo surgery in the a.m. for removal of hardware and placement of antibiotic spacer. Continue vancomycin IV per renal dosing, would add ceftriaxone 1 g IV daily as well. The left lower extremity does have some swelling, which may be an extension of the infection, but would order a lower extremity venous Doppler to assess for DVT. CAD/coronary artery stents 4/paroxysmal atrial fibrillation/diastolic CHF/ hypertension/MR/TR--continue amiodarone 200 mg by mouth every morning, diltiazem extended release 30 mg by mouth every morning with hold parameters, metoprolol tartrate 100 mg by mouth twice a day with hold parameters, furosemide 80 mg by mouth twice a day. Hold aspirin 81 mg by mouth every morning and Xarelto 20 mg by mouth every evening. Hold lisinopril 5 mg by mouth every morning. Anemia--hemoglobin is 8.5, which is been stable over the past few months, and during that time he has had 2 orthopedic procedures and done well. He had a negative stress test in November of this year. We will order an EKG and chest x- ray, and both are normal, we will expect patient to be an acceptable candidate for the surgery. Hyperlipidemia--continue atorvastatin 40 mg by mouth at bedtime. GERD--continue pantoprazole 40 mg by mouth every evening. Peripheral neuropathy--continue gabapentin 800 mg by mouth twice a day. Vitamin B12 deficiency--continue cyanocobalamin 1000 g by mouth every morning.
[2017-03-09] MEDS: CEFTRIAXONE SOD INJ 1 GM in DEXTROSE 5% ADD-VANTAGE 50ML 50 ML IV SCH (21:27)
[2017-03-09] MEDS: ATORVASTATIN 40 MG TAB PO SCH (21:30)
[2017-03-09] MEDS: GABAPENTIN 800 MG TAB PO SCH (21:30)
[2017-03-09] MEDS: METOPROLOL TARTRATE 100 MG TAB PO SCH (21:31)
[2017-03-09 22:56] VITALS: BP 127/69; PULSE 64; TEMP 36.8; O2SAT 94
--- NOTE | 2017-03-09 22:56 | DIAGNOSTIC IMAGING REPORT ---
ULTRASOUND LEFT LOWER EXTREMITY VENOUS CLINICAL HISTORY: Left leg swelling. COMPARISON STUDY: No priors. TECHNIQUE: Real-time, grayscale, and color Doppler sonography of the deep veins of the left lower extremity was performed from the inguinal crease to the calf. Compression and augmentation were utilized. FINDINGS: There is no sonographic evidence of deep venous thrombosis identified in the left lower extremity. The common femoral, superficial femoral, and popliteal veins are patent and normally compressible. The greater saphenous vein and the profunda femoris vein at the junction with the common femoral vein are clear. The visualized calf veins are patent. A minimally complex popliteal cyst measures 6.2 x 2.0 x 3.4 cm IMPRESSION: 1. There is no sonographic evidence of deep venous thrombosis identified in the left lower extremity. 2. Popliteal cyst. Electronically signed by: Domenic Nassar M.D. 03/09/2017 10:55 PM Dictated Date/Time: 03/09/2017 10:54 PM
[2017-03-10] VITALS (12 sets, daily range): BP systolic 108–183; BP diastolic 58–89; PULSE 62–83; TEMP 36.5–38.1; O2SAT 81–95
[2017-03-10] MEDS: D5W AND 1/2NSS 1,000 ML IV SCH ×3 (00:49→21:10)
[2017-03-10] MEDS: MoRPHine SULFATE 4 MG/ML 1 ML CARP\\VIAL IV PRN ×4 (01:08→21:19)
[2017-03-10] MEDS: VANCOMYCIN INJ 1,400 MG in SODIUM CHLORIDE 0.9% 500ML 500 ML IV SCH ×3 (01:57→19:02)
[2017-03-10] MEDS: ONDANSETRON INJ 6 MG in DEXTROSE 5% 50ML 50 ML IV PRN ×2 (05:11→13:02)
[2017-03-10] MEDS: ACETAMINOPHEN 500 MG TAB PO SCH ×3 (05:38→21:08)
--- NOTE | 2017-03-10 06:30 | DIAGNOSTIC IMAGING REPORT ---
CHEST ONE VIEW PORTABLE CLINICAL HISTORY: coughing THE INFECTION COMPARISON STUDY: 03/09/2017 FINDINGS: The cardiac and mediastinal contours remain stable. There is increased central vascular prominence, a finding suggesting mild vascular congestion/fluid overload. There is no lobar consolidation. Increased basal markings and left perihilar markings likely represent mild edema. Clinical and radiographic follow-up is recommended.[ IMPRESSION: Interval development of mild pulmonary vascular congestion/fluid overload. Clinical and radiographic follow-up is recommended Electronically signed by: Santana Sauceda M.D. 03/10/2017 6:28 AM Dictated Date/Time: 03/10/2017 6:27 AM
[2017-03-10] MEDS ORDERED: TOBRAMYCIN SULF 1.2 GM VIAL (POWDER) ONE (07:09)
[2017-03-10] MEDS ORDERED: BACITRACIN 50000 UNIT VIAL ONE ×2 (07:10→09:10)
[2017-03-10] MEDS ORDERED: POVIDONE-IODINE OP SOLN 30 ML BTL ONE (07:10)
[2017-03-10] MEDS ORDERED: LIDOCAINE HCL 2% 2 ML VIAL (20MG/ML) ONE (07:15)
[2017-03-10] MEDS ORDERED: ROCURONIUM BROMIDE 10 MG/ML 5 ML VIAL ONE (07:15)
[2017-03-10] MEDS ORDERED: DEXAMETHASONE SOD INJ 4 MG/ML VIAL ONE (07:15)
[2017-03-10] MEDS ORDERED: PROPOFOL IV EMULSION 10 MG/ML 20 ML VIAL IV ONE (07:15)
[2017-03-10] MEDS ORDERED: FENTANYL CITRATE INJ 50 MCG/1 ML 2 ML VIAL ONE ×3 (07:15→10:22)
[2017-03-10] MEDS ORDERED: NEOSTIGMINE METHYLSULFATE 5 MG/5 ML SYR ONE (07:15)
[2017-03-10] MEDS ORDERED: GLYCOPYRROLATE INJ 0.2 MG/ML VIAL ONE (07:15)
[2017-03-10] MEDS ORDERED: ONDANSETRON INJ 2 MG/ML 2 ML VIAL ONE (07:15)
[2017-03-10] MEDS ORDERED: MIDAZOLAM HCL 1 MG/ML 2ML VIAL ONE (07:17)
[2017-03-10 07:28] LABS: CREATININE 0.6 mg/dl (0.60-1.40)
[2017-03-10] MEDS ORDERED: KETOROLAC TROMETHAMINE 30 MG/ML VIAL IV. PRN (08:30)
[2017-03-10] MEDS ORDERED: ATROPINE SULFATE 0.1 MG/ML 5ML SYR IV PRN (08:30)
[2017-03-10] MEDS ORDERED: ONDANSETRON INJ 2 MG/ML 2 ML VIAL IV PRN (08:30)
[2017-03-10] MEDS ORDERED: LABETALOL HCL IV 5 MG/ML 20ML IV PRN (08:30)
[2017-03-10] MEDS ORDERED: HYDROmorphone INJ 2 MG/ML SYR/VIAL IV PRN ×2 (08:30→11:00)
[2017-03-10] MEDS ORDERED: VANCOMYCIN HCL 1000MG/20ML VIAL ONE (08:53)
[2017-03-10] MEDS: GABAPENTIN 800 MG TAB PO SCH ×2 (09:00→21:07)
--- NOTE | 2017-03-10 09:37 | Progress Note ---
Progress Note Date of Service Mar 10, 2017. Progress Note pt off of floor, chart reviewed, aspiration with significant leukocytosis. fevers this am. ESR elevated. Agree with broad spectrum abx pending culture results, will check blood cultures as well. formal consult silvestre
--- NOTE | 2017-03-10 09:43 | [facility] Operative Report ---
Operative Report Operative Date Mar 10, 2017. Pre-Operative Diagnosis Infected left total knee Post-Operative Diagnosis Same Procedure(s) Performed Excisional arthroplasty conversion to articulated cement spacer types of note following the induction of adequate general anesthesia the patient's left leg was prepped and draped in the usual sterile manner. The limb was exsanguinated with elevation and the tourniquet was inflated to 325 mmHg. Longitudinal incision was made subcutaneous tissues were sharply dissected electrocardiographic omentum was used for hemostasis. The medial parapatellar incision was made and reddish-brown purulent joint fluid was identified. One set of cultures was obtained. Following this complete sharp synovectomy was carried out after the initial irrigation with pulsatile lavage. The tibial polyethylene was removed and the patella was removed using an oscillating saw. Small drill was used to remove the polyethylene pegs. Next attention turned to the femoral component where a small thin flexible osteotome was utilized to undermine the femoral component this is disimpacted using a bone tamp and a mallet with nearly no bone loss. Next attention was turned to the tibia which was noted to be grossly loose. This was removed easily and a disruption at the cement prosthesis interface was noted. The cement however was also noted to be grossly loose within the tibia and was removed piecemeal. Curet and pituitary rongeurs were utilized to remove all soft tissue from the tibial canal. The bone plug previously placed in the femoral canal was removed. The versa jet was utilized mechanically debrided all soft tissue surfaces. A total of 8000 mL of pulsatile irrigant was utilized to thoroughly cleanse the wound. Trial reduction was carried out size 5 femoral component with size 16 tibial Dorothy which was incised. The final components were obtained stimulant beads were packed in both in the femoral and tibial canals and 3 Praxis gentamicin impregnated cement were mixed with an additional 9 g of tobramycin and the liquid component from the fourth packets of cement. After the cement reached the doughy stage femoral component was cemented in position. Excess cement was removed. Next the tibial Dorohty was a cemented into position and it was held in extension while cement hardened the patella the pegs of which had been removed was also cemented into position. The remainder of the stimulant beads were placed in the suprapatellar pouch. The Hemovac drain was placed in the wound wound was closed in layers with #1 vicryl was used to close the extensor mechanism subcutaneous tissue was closed using 0 dexon and skin yanique yanique sterile dressing adaptic 4 x 4 sterile webril and an nataly was applied. the patient tolerated the procedure well. mr. evras was utilized throughout the case and all components case including prepping draping surgical cyst wound closure and dressing application. Surgeon Isai Social Work Faculty Member Surgeon(s) brad Estimated Blood Loss 100 mL Findings Grossly loose infected total knee on the left Specimens Cultures Anesthesia Gen. Disposition Recovery Room / PACU I attest to the content of the Intraoperative Record and any orders documented therein. Any exceptions are noted below.
[2017-03-10] MEDS ORDERED: KETOROLAC TROMETHAMINE 30 MG/ML VIAL ONE (10:28)
[2017-03-10] MEDS ORDERED: HYDROmorphone INJ 2 MG/ML SYR/VIAL ONE ×2 (10:28→11:00)
[2017-03-10] MEDS: DILTIAZEM HCL 180 MG CAPCR PO SCH (11:48)
[2017-03-10] MEDS: AMIODARONE 200 MG TAB PO SCH (11:48)
[2017-03-10] MEDS: ALLOPURINOL 100 MG TAB PO SCH (11:48)
[2017-03-10] MEDS: METOPROLOL TARTRATE 100 MG TAB PO SCH ×2 (11:49→21:07)
[2017-03-10] MEDS: LISINOPRIL 5 MG TAB PO SCH (11:49)
[2017-03-10] MEDS: MULTIVITAMIN TAB PO SCH (11:49)
[2017-03-10] MEDS: CYANOCOBALAMIN 500 MCG TAB (VIT B-12) PO SCH (11:49)
[2017-03-10] MEDS: OXYCODONE HCL IR 5 MG TAB (IMMEDIATE RELEASE) PO PRN (11:55)
--- NOTE | 2017-03-10 14:22 | Anesthesiology Progress Note ---
Anesthesia Post Op Note Date & Time Mar 10, 2017 at 14:22 Vital Signs Vital Signs Past 12 Hours Date Time Temp Pulse Resp B/P (MAP) Pulse Ox O2 Delivery O2 Flow Rate FiO2 03/10/17 13:48 68 16 124/62 (82) 94 03/10/17 13:07 72 18 152/65 (94) 90 Room Air 03/10/17 12:40 92 Nasal Cannula 4.0 03/10/17 12:13 76 18 183/89 (120) 95 03/10/17 11:40 36.5 79 18 174/83 (113) 92 Nasal Cannula 4.0 03/10/17 11:25 36.1 79 17 160/84 99 Nasal Cannula 4 03/10/17 11:15 81 21 163/81 98 Nasal Cannula 4 03/10/17 11:05 81 12 164/79 98 Nasal Cannula 4 03/10/17 10:55 85 14 168/92 97 Nasal Cannula 4 03/10/17 10:45 85 16 177/93 98 Nasal Cannula 4 03/10/17 10:35 85 23 168/103 99 Mask 10 03/10/17 10:25 88 25 176/89 96 Mask 10 03/10/17 10:19 36.4 88 27 170/82 93 Mask 10 03/10/17 07:26 Nasal Cannula 2.0 03/10/17 07:12 38.1 83 18 154/71 (98) 93 Nasal Cannula 2.0 03/10/17 05:40 92 Nasal Cannula 2.0 03/10/17 05:05 91 Nasal Cannula 2.0 03/10/17 05:00 81 Room Air Notes Mental Status: alert / awake / arousable, participated in evaluation Pt Amnestic to Procedure: Yes Nausea / Vomiting: adequately controlled Pain: adequately controlled Airway Patency, RR, SpO2: stable & adequate BP & HR: stable & adequate Hydration State: stable & adequate Anesthetic Complications: no major complications apparent
--- NOTE | 2017-03-10 14:59 | Progress Note ---
Subjective Date of Service: Mar 10, 2017. Subjective Pt evaluation today including: conversation w/ patient, conversation w/ family Pt had emesis and other nursing concerns this AM pre-op, however when I went up this AM to see pt he had already been taken to the OR. I did see pt this afternoon s/p OR and he is doing well. Ongoing LE pain related to L knee. No further emesis and tolerated a diet. Pt denies fever, SOB, chest pain, abd pain , n/c/d, LE swelling. Problem List Medical Problems: (1) Abdominal pain Status: Acute (2) Fall from slip, trip, or stumble Status: Acute (3) Hypoxia Status: Acute (4) Pancreatitis Status: Acute (5) Pulmonary edema Status: Acute (6) Respiratory distress Status: Acute (7) Surgical wound dehiscence Status: Acute (8) Vomiting Status: Acute Social History Problems: (1) Status post left knee replacement Status: Acute Review of Systems All Other Systems: Reviewed and Negative Objective Vital Signs Date Time Temp Pulse Resp B/P (MAP) Pulse Ox O2 Delivery O2 Flow Rate FiO2 03/10/17 14:40 62 16 120/58 (78) 95 03/10/17 13:48 68 16 124/62 (82) 94 03/10/17 13:07 72 18 152/65 (94) 90 Room Air 03/10/17 12:40 92 Nasal Cannula 4.0 03/10/17 12:13 76 18 183/89 (120) 95 03/10/17 11:40 36.5 79 18 174/83 (113) 92 Nasal Cannula 4.0 03/10/17 11:25 36.1 79 17 160/84 99 Nasal Cannula 4 03/10/17 11:15 81 21 163/81 98 Nasal Cannula 4 03/10/17 11:05 81 12 164/79 98 Nasal Cannula 4 03/10/17 10:55 85 14 168/92 97 Nasal Cannula 4 03/10/17 10:45 85 16 177/93 98 Nasal Cannula 4 03/10/17 10:35 85 23 168/103 99 Mask 10 03/10/17 10:25 88 25 176/89 96 Mask 10 03/10/17 10:19 36.4 88 27 170/82 93 Mask 10 03/10/17 07:26 Nasal Cannula 2.0 03/10/17 07:12 38.1 83 18 154/71 (98) 93 Nasal Cannula 2.0 03/10/17 05:40 92 Nasal Cannula 2.0 03/10/17 05:05 91 Nasal Cannula 2.0 03/10/17 05:00 81 Room Air 03/10/17 01:00 Room Air 03/09/17 22:56 36.8 64 18 127/69 (88) 94 Room Air 03/09/17 16:09 36.9 70 18 148/73 98 Room Air 03/09/17 15:11 36.9 70 18 148/73 (98) 98 Room Air Physical Exam General Appearance: WD/WN, no apparent distress Eyes: normal inspection, EOMI Respiratory/Chest: normal breath sounds, no respiratory distress Cardiovascular: regular rate, rhythm, no edema Abdomen: non tender, soft Extremities: non-tender, no pedal edema Neurologic/Psychiatric: alert, normal mood/affect Skin: normal color, warm/dry Laboratory Results Last 24 Hours Test 03/09/17 16:11 03/10/17 06:33 White Blood Count 7.42 K/uL Red Blood Count 3.46 M/uL Hemoglobin 8.5 g/dL Hematocrit 27.9 % Mean Corpuscular Volume 80.6 fL Mean Corpuscular Hemoglobin 24.6 pg Mean Corpuscular Hemoglobin Concent 30.5 g/dl Platelet Count 289 K/uL Mean Platelet Volume 10.1 fL Neutrophils (%) (Auto) 77.1 % Lymphocytes (%) (Auto) 13.2 % Monocytes (%) (Auto) 8.8 % Eosinophils (%) (Auto) 0.7 % Basophils (%) (Auto) 0.1 % Neutrophils # (Auto) 5.72 K/uL Lymphocytes # (Auto) 0.98 K/uL Monocytes # (Auto) 0.65 K/uL Eosinophils # (Auto) 0.05 K/uL Basophils # (Auto) 0.01 K/uL RDW Standard Deviation 46.5 fL RDW Coefficient of Variation 15.9 % Immature Granulocyte % (Auto) 0.1 % Immature Granulocyte # (Auto) 0.01 K/uL Anisocytosis PRESENT Erythrocyte Sedimentation Rate 66 mm/hr Sodium Level 137 mmol/L Potassium Level 3.7 mmol/L Chloride Level 102 mmol/L Carbon Dioxide Level 28 mmol/L Anion Gap 7.0 mmol/L Blood Urea Nitrogen 12 mg/dl Creatinine 0.62 mg/dl 0.60 mg/dl Est Creatinine Clear Calc Drug Dose 133.6 ml/min 138.1 ml/min Estimated GFR () 119.8 121.4 Estimated GFR (Non- 103.4 104.8 BUN/Creatinine Ratio 18.6 Random Glucose 97 mg/dl Calcium Level 9.3 mg/dl C-Reactive Protein 11.20 mg/dl Assessment and Plan Left knee septic arthritis--s/p removal of hardware and placement of antibiotic spacer for infected L knee on 03/10 s/p replacement on 01/04 ID awaiting cx results Synovial fluid results noted Vanco/rocephin started 03/09 L LE US neg for DVT CAD/coronary artery stents 4/paroxysmal atrial fibrillation/diastolic CHF/ hypertension/MR/TR--continue amiodarone 200 mg by mouth every morning, diltiazem extended release 30 mg by mouth every morning with hold parameters, metoprolol tartrate 100 mg by mouth twice a day with hold parameters, furosemide 80 mg by mouth twice a day. Hold aspirin 81 mg by mouth every morning and Xarelto 20 mg by mouth every evening, but this should be resumed louise once ortho feels appropriate Resume lisinopril Anemia--hemoglobin is 8.5, which is been stable over the past few months, and during that time he has had 2 orthopedic procedures and done well. He had a negative stress test in November of this year. Hyperlipidemia--continue atorvastatin 40 mg by mouth at bedtime. GERD--continue pantoprazole 40 mg by mouth every evening. Peripheral neuropathy--continue gabapentin 800 mg by mouth twice a day. Vitamin B12 deficiency--continue cyanocobalamin 1000 g by mouth every morning.
[2017-03-10] MEDS ORDERED: VANCOMYCIN TROUGH SCH (17:30)
--- NOTE | 2017-03-10 20:59 | Pharmacy Progress Note ---
Pharmacy Abx Dose Progress Nt Date of Service Mar 10, 2017. Pharmacy Dosing Scope The patient is currently receiving the following antimicrobial agents per Pharmacy consult: Vancomycin 1400mg IV q8h (~15mg/kg) Objective Height (Feet): 5 Height (Inches): 10.00 Weight (Kilograms): 92.000 Vital Signs (Past 12Hrs) Vital Signs Past 12 Hours Date Time Temp Pulse Resp B/P (MAP) Pulse Ox O2 Delivery O2 Flow Rate FiO2 03/10/17 19:35 36.6 62 18 108/58 (75) 94 Room Air 03/10/17 15:40 Room Air 03/10/17 14:40 62 16 120/58 (78) 95 03/10/17 13:48 68 16 124/62 (82) 94 03/10/17 13:07 72 18 152/65 (94) 90 Room Air 03/10/17 12:40 92 Nasal Cannula 4.0 03/10/17 12:13 76 18 183/89 (120) 95 03/10/17 11:40 36.5 79 18 174/83 (113) 92 Nasal Cannula 4.0 03/10/17 11:25 36.1 79 17 160/84 99 Nasal Cannula 4 03/10/17 11:15 81 21 163/81 98 Nasal Cannula 4 03/10/17 11:05 81 12 164/79 98 Nasal Cannula 4 03/10/17 10:55 85 14 168/92 97 Nasal Cannula 4 03/10/17 10:45 85 16 177/93 98 Nasal Cannula 4 03/10/17 10:35 85 23 168/103 99 Mask 10 03/10/17 10:25 88 25 176/89 96 Mask 10 03/10/17 10:19 36.4 88 27 170/82 93 Mask 10 Micro Results Date/Time Source Procedure Growth Status 03/10/17 12:22 Blood Blood Culture Pending Received 03/10/17 12:12 Blood Blood Culture Pending Received 03/10/17 08:29 Joint Fluid/Space (Synovial) Knee Left Gram Stain Pending Received 03/10/17 08:29 Joint Fluid/Space (Synovial) Knee Left Bacterial Culture Pending Received 03/09/17 00:00 Joint Fluid/Space (Synovial) Knee Left Gram Stain - Final Resulted 03/09/17 00:00 Bacterial Culture - Preliminary Staph Species Resulted Risk Factors for Resistance * Hospitalization for 48 hours or more within the past 90 days * Antimicrobial use within the last 90 days (post-op) Assessment & Plan Assessment * 66 year old male receiving IV Vancomycin for treatment of septic left TKA s/ p I&D, excisional arthroplasty & antibiotic spacer placement * Day #2 of antimicrobial therapy Plan Vancomycin IV * Trough level of 21.2mcg/mL is supratherapeutic, however level was based on a dose hung almost 2 hours late (level was likely therapeutic) * Continue current dose of Vancomycin 1400mg IV q8h * Goal trough level for septic TKA: 15-20mcg/mL * Trough level ordered for: 03/11/17 1000 dose Pharmacy will continue to follow and will adjust dose/frequency as necessary. Thank you.
[2017-03-10] MEDS: ATORVASTATIN 40 MG TAB PO SCH (21:07)
[2017-03-10] MEDS: CEFTRIAXONE SOD INJ 1 GM in DEXTROSE 5% ADD-VANTAGE 50ML 50 ML IV SCH (22:18)
[2017-03-11] MEDS: VANCOMYCIN INJ 1,400 MG in SODIUM CHLORIDE 0.9% 500ML 500 ML IV SCH (01:57)
[2017-03-11 03:22] VITALS: BP 124/67; PULSE 69; TEMP 37; O2SAT 96
[2017-03-11] MEDS: D5W AND 1/2NSS 1,000 ML IV SCH (06:05)
[2017-03-11] MEDS: ACETAMINOPHEN 500 MG TAB PO SCH ×3 (06:05→21:39)
[2017-03-11 06:48] LABS: CREATININE 1.1 mg/dl (0.60-1.40)
[2017-03-11 07:17] VITALS: BP 142/72; PULSE 98; TEMP 36.8; O2SAT 93
[2017-03-11] MEDS: OXYCODONE HCL IR 5 MG TAB (IMMEDIATE RELEASE) PO PRN (07:36)
--- NOTE | 2017-03-11 08:29 | Orthopedic Progress Note ---
Orthopedic Progress Note Date of Service Mar 11, 2017. Subjective Post OP Day: 1 Reports: feeling well Objective N/V intact, dressing C/D/I (Hemovac in place), toes mobile Date Time Temp Pulse Resp B/P (MAP) Pulse Ox O2 Delivery O2 Flow Rate FiO2 03/11/17 07:32 Room Air 03/11/17 07:17 36.8 98 19 142/72 (95) 93 Room Air 03/11/17 03:22 37.0 69 16 124/67 (86) 96 Room Air 03/10/17 23:15 Room Air 03/10/17 22:48 36.6 68 16 126/71 (89) 95 Room Air 03/10/17 19:35 36.6 62 18 108/58 (75) 94 Room Air 03/10/17 15:40 Room Air 03/10/17 14:40 62 16 120/58 (78) 95 03/10/17 13:48 68 16 124/62 (82) 94 03/10/17 13:07 72 18 152/65 (94) 90 Room Air 03/10/17 12:40 92 Nasal Cannula 4.0 03/10/17 12:13 76 18 183/89 (120) 95 03/10/17 11:40 36.5 79 18 174/83 (113) 92 Nasal Cannula 4.0 03/10/17 11:25 36.1 79 17 160/84 99 Nasal Cannula 4 03/10/17 11:15 81 21 163/81 98 Nasal Cannula 4 03/10/17 11:05 81 12 164/79 98 Nasal Cannula 4 03/10/17 10:55 85 14 168/92 97 Nasal Cannula 4 03/10/17 10:45 85 16 177/93 98 Nasal Cannula 4 03/10/17 10:35 85 23 168/103 99 Mask 10 03/10/17 10:25 88 25 176/89 96 Mask 10 03/10/17 10:19 36.4 88 27 170/82 93 Mask 10 Additional Notes: Cultures: staph species, sensitivities pending Assessment & Plan Assessment: 66 yo male stable POD #1 s/p left TKA excisional arthroplasty, I&D, placement articulated antibiotic spacer Plan: 1. Med management: ID involved, PICC line to be ordered 2. DVT prophylaxis- resume Xarelto, SCDs 3. PT/OT- ambulation and gentle ROM 4. D/C planning- when PICC line placed, ID has made recommendations for abx, and SS has arranged home/outpt IV abx
[2017-03-11] MEDS: AMIODARONE 200 MG TAB PO SCH (08:37)
[2017-03-11] MEDS: ALLOPURINOL 100 MG TAB PO SCH (08:37)
[2017-03-11] MEDS: METOPROLOL TARTRATE 100 MG TAB PO SCH ×2 (08:37→20:20)
[2017-03-11] MEDS: LISINOPRIL 5 MG TAB PO SCH (08:37)
[2017-03-11] MEDS: CYANOCOBALAMIN 500 MCG TAB (VIT B-12) PO SCH (08:37)
[2017-03-11] MEDS: GABAPENTIN 800 MG TAB PO SCH ×2 (08:37→20:20)
[2017-03-11] MEDS: DILTIAZEM HCL 180 MG CAPCR PO SCH (08:38)
[2017-03-11] MEDS: MULTIVITAMIN TAB PO SCH (08:38)
[2017-03-11] MEDS: MoRPHine SULFATE 4 MG/ML 1 ML CARP\\VIAL IV PRN ×3 (08:44→21:43)
[2017-03-11] MEDS ORDERED: NURSING VERBAL MED ORDER ONE (09:00)
[2017-03-11] MEDS ORDERED: FUROSEMIDE 80 MG TAB PO ONE (09:11)
[2017-03-11] MEDS ORDERED: VANCOMYCIN TROUGH SCH (09:30)
[2017-03-11] MEDS ORDERED: RIVAROXABAN 20 MG TAB PO SCH (12:00)
--- NOTE | 2017-03-11 12:49 | Progress Note ---
Subjective Date of Service: Mar 11, 2017. Subjective Pt evaluation today including: conversation w/ patient Pt is feeling improved. L knee pain and swelling is improving. Has been tolerating PO without issue. Pt denies fever, SOB, chest pain, abd pain, n/v/c/ d. Problem List Medical Problems: (1) Abdominal pain Status: Acute (2) Fall from slip, trip, or stumble Status: Acute (3) Hypoxia Status: Acute (4) Pancreatitis Status: Acute (5) Pulmonary edema Status: Acute (6) Respiratory distress Status: Acute (7) Surgical wound dehiscence Status: Acute (8) Vomiting Status: Acute Social History Problems: (1) Status post left knee replacement Status: Acute Review of Systems All Other Systems: Reviewed and Negative Objective Vital Signs Date Time Temp Pulse Resp B/P (MAP) Pulse Ox O2 Delivery O2 Flow Rate FiO2 03/11/17 07:32 Room Air 03/11/17 07:17 36.8 98 19 142/72 (95) 93 Room Air 03/11/17 03:22 37.0 69 16 124/67 (86) 96 Room Air 03/10/17 23:15 Room Air 03/10/17 22:48 36.6 68 16 126/71 (89) 95 Room Air 03/10/17 19:35 36.6 62 18 108/58 (75) 94 Room Air 03/10/17 15:40 Room Air 03/10/17 14:40 62 16 120/58 (78) 95 03/10/17 13:48 68 16 124/62 (82) 94 03/10/17 13:07 72 18 152/65 (94) 90 Room Air Physical Exam Comments: General Appearance: WD/WN, no apparent distress Eyes: normal inspection, EOMI Respiratory/Chest: normal breath sounds, no respiratory distress Cardiovascular: regular rate, rhythm, no edema Abdomen: non tender, soft Extremities: non-tender, no pedal edema Neurologic/Psychiatric: alert, normal mood/affect Skin: normal color, warm/dry Laboratory Results Last 24 Hours Test 03/10/17 17:51 03/11/17 05:59 03/11/17 09:16 Vancomycin Level Trough 21.2 mcg/ml 28.0 mcg/ml Creatinine 1.10 mg/dl Est Creatinine Clear Calc Drug Dose 75.3 ml/min Estimated GFR () 80.6 Estimated GFR (Non- 69.6 Assessment and Plan Left knee septic arthritis--s/p removal of hardware and placement of antibiotic spacer for infected L knee on 03/10 s/p replacement on 01/04 ID awaiting cx results, initial prelim is Staph species--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 Hold aspirin 81 mg by mouth every morning and Xarelto 20 mg by mouth every evening, but this should be resumed louise once ortho feels appropriate Resume lisinopril Anemia--hemoglobin is 8.5, which is been stable over the past few months, and during that time he has had 2 orthopedic procedures and done well. He had a negative stress test in November of this year. Hyperlipidemia--continue atorvastatin 40 mg by mouth at bedtime. GERD--continue pantoprazole 40 mg by mouth every evening. Peripheral neuropathy--continue gabapentin 800 mg by mouth twice a day. Vitamin B12 deficiency--continue cyanocobalamin 1000 g by mouth every morning.
--- NOTE | 2017-03-11 13:11 | DIAGNOSTIC IMAGING REPORT ---
SINGLE VIEW CHEST CLINICAL HISTORY: PICC placement. FINDINGS: An AP, portable, upright chest radiograph is compared to study dated 03/10/2017. The examination is degraded by portable technique and patient rotation. A right PICC line has been placed. The tip of the catheter projects over the right innominate vein approximately 6.5 cm above the leia. The heart is enlarged and there is atherosclerotic calcification of the thoracic aorta. The pulmonary vasculature is noncongested. There is left basilar atelectasis. No large pleural effusion or pneumothorax is seen. The skeletal structures are osteopenic. The bony thorax is grossly intact. Surgical anchors are present in the right humeral head. IMPRESSION: 1. A right PICC line has been placed. The tip of the catheter projects over the right innominate vein. 2. Cardiomegaly without radiographic evidence of congestive failure. Electronically signed by: Domenic Nassar M.D. 03/11/2017 1:09 PM Dictated Date/Time: 03/11/2017 1:07 PM
--- NOTE | 2017-03-11 13:26 | Pharmacy Progress Note ---
Pharmacy Abx Dose Short Note Date of Service Mar 11, 2017. Assessment & Plan Assessment * 66 year old male receiving Vancomycin 1400mg IV Q 8 hours for treatment of infected L TKA * Today is day # 3 of Rocephin + Vancomycin * Patient returned to OR yesterday (03/10) for removal of hardware from previous TKA w/ placement of ABX spacer * He was febrile yesterday (Tmax 38.1), he is afebrile today and his VS are stable * L knee joint fluid growing staph species. * Renal fxn appears to be declining however. SCr nearly doubled in the last 24 hrs (SCr 0.6 -->1.1); he is being hydrated and today his U.O. appears adequate. Plan Vancomycin * Trough level of 28 mcg/mL is supratherapeutic. Level was drawn at the appropriate time and prior doses hung close to schedule. * Given possible worsening renal fxn, will place vancomycin on hold and check random level along w/ a repeat SCr this evening. * Given that SCr has nearly doubled, his dosing interval of Q 8 hours may need doubled as well if renal fxn not improving. Will obtain level ~ 16 hours from last vancomycin dose. * Goal trough for bone/joint infxn: 15-20mcg/mL Pharmacy will continue to follow and will adjust dose/frequency as necessary. Thank you.
[2017-03-11 15:23] VITALS: BP 101/64; PULSE 89; TEMP 36.7; O2SAT 97
--- NOTE | 2017-03-11 15:34 | DIAGNOSTIC IMAGING REPORT ---
SINGLE VIEW CHEST CLINICAL HISTORY: PICC repositioning. FINDINGS: An AP, portable, upright chest radiograph is compared to study performed earlier the same day 03/11/2017. The examination is significantly degraded by portable technique, apical lordotic positioning, and patient rotation. A right PICC has not significantly changed in position. The tip of the catheter projects over the right innominate vein approximately 7 cm above the leia. The heart is enlarged and there is atherosclerotic calcification of the thoracic aorta. The pulmonary vasculature is noncongested. There is left basilar atelectasis. No large pleural effusion or pneumothorax is seen. The skeletal structures are osteopenic. The bony thorax is grossly intact. Surgical anchors are present in the right humeral head. IMPRESSION: 1. A right PICC line has not significantly changed in position with the tip projecting over the right innominate vein. 2. Cardiomegaly without radiographic evidence of congestive failure. Electronically signed by: Domenic Nassar M.D. 03/11/2017 3:33 PM Dictated Date/Time: 03/11/2017 3:31 PM
[2017-03-11 16:00] VITALS: O2SAT 97
--- NOTE | 2017-03-11 16:35 | DIAGNOSTIC IMAGING REPORT ---
TWO VIEW CHEST CLINICAL HISTORY: PICC repositioning. FINDINGS: PA and lateral chest radiographs are compared to studies performed earlier the same day 03/11/2017. The PA view is degraded by patient rotation. A right PICC has repositioned. The tip now projects over the right atrium at the level of the diaphragm additionally pullback approximately 9 cm. The heart is enlarged and there is atherosclerotic calcification of the thoracic aorta. The pulmonary vasculature is noncongested. There is left basilar atelectasis. No large pleural effusion or pneumothorax is seen. The skeletal structures are osteopenic. There are healed right-sided rib fractures. Surgical anchors are present in the right humeral head. IMPRESSION: 1. A right PICC line has been advanced. The tip projects over the right atrium at the level of the diaphragm. This should be pulled back approximately 9 cm. 2. Cardiomegaly without radiographic evidence of congestive failure. Electronically signed by: Domenic Nassar M.D. 03/11/2017 4:33 PM Dictated Date/Time: 03/11/2017 4:32 PM
[2017-03-11] MEDS: FUROSEMIDE 80 MG TAB PO SCH (17:05)
--- NOTE | 2017-03-11 17:36 | DIAGNOSTIC IMAGING REPORT ---
SINGLE VIEW CHEST CLINICAL HISTORY: PICC repositioning. FINDINGS: An AP, portable, upright chest radiograph is compared to study performed earlier the same day 03/11/2017. The examination is significantly degraded by portable technique, apical lordotic positioning, and patient rotation. A right PICC has been repositioned. The tip projects over the SVC approximately 2 cm above the leia. The heart is enlarged and there is atherosclerotic calcification of the thoracic aorta. The pulmonary vasculature is noncongested. There is left basilar atelectasis. No large pleural effusion or pneumothorax is seen. The skeletal structures are osteopenic. The bony thorax is grossly intact. Surgical anchors are present in the right humeral head. IMPRESSION: 1. A right PICC line has been repositioned. The tip now projects over the SVC. 2. Cardiomegaly without radiographic evidence of congestive failure. Electronically signed by: Domenic Nassar M.D. 03/11/2017 5:35 PM Dictated Date/Time: 03/11/2017 5:34 PM
[2017-03-11 18:26] LABS: CREATININE 1.3 mg/dl (0.60-1.40)
[2017-03-11] MEDS: CEFTRIAXONE SOD INJ 1 GM in DEXTROSE 5% ADD-VANTAGE 50ML 50 ML IV SCH (19:31)
[2017-03-11] MEDS: ATORVASTATIN 40 MG TAB PO SCH (20:20)
[2017-03-11 22:46] VITALS: BP 102/59; PULSE 89; TEMP 36.9; O2SAT 97
[2017-03-12] VITALS (14 sets, daily range): BP systolic 119–155; BP diastolic 44–85; PULSE 64–106; TEMP 36.6–37.2; O2SAT 94–97
[2017-03-12] MEDS: MoRPHine SULFATE 4 MG/ML 1 ML CARP\\VIAL IV PRN ×5 (02:43→21:33)
[2017-03-12] MEDS: ACETAMINOPHEN 500 MG TAB PO SCH ×3 (05:45→21:33)
[2017-03-12 05:55] LABS: HEMATOCRIT 22.5 % (42-52); MEAN CELL VOLUME 80.9 fL (80-100); MEAN CORPUSCULAR HEMOGLOBIN 24.1 pg (25-34); MEAN CORPUSCULAR HGB CONC 29.8 g/dl (32-36); MEAN PLATELET VOLUME 9.9 fL (7.4-10.4); PLATELET COUNT 269 K/uL (130-400); RED BLOOD COUNT 2.78 M/uL (4.7-6.1)
[2017-03-12 06:30] LABS: BUN/CREATININE RATIO 14.7 (10-20); CALCIUM 8.8 mg/dl (8.5-10.1); CREATININE 1.2 mg/dl (0.60-1.40)
--- NOTE | 2017-03-12 08:13 | Anesthesiology Progress Note ---
Anesthesia Post Op Note Date & Time Mar 12, 2017 at 08:12 Vital Signs Vital Signs Past 12 Hours Date Time Temp Pulse Resp B/P (MAP) Pulse Ox O2 Delivery O2 Flow Rate FiO2 03/12/17 06:50 36.8 67 16 149/78 (101) 94 Room Air 03/11/17 23:10 Room Air 03/11/17 22:46 36.9 89 16 102/59 (73) 97 Room Air Notes Mental Status: alert / awake / arousable, participated in evaluation Pt Amnestic to Procedure: Yes Nausea / Vomiting: adequately controlled Pain: adequately controlled Airway Patency, RR, SpO2: stable & adequate BP & HR: stable & adequate Hydration State: stable & adequate Anesthetic Complications: no major complications apparent
[2017-03-12] MEDS ORDERED: VANCOMYCIN INJ 1,500 MG in SODIUM CHLORIDE 0.9% 500ML 500 ML IV ONE (08:30)
[2017-03-12] MEDS: DILTIAZEM HCL 180 MG CAPCR PO SCH (09:08)
[2017-03-12] MEDS: LISINOPRIL 5 MG TAB PO SCH (09:08)
[2017-03-12] MEDS: METOPROLOL TARTRATE 100 MG TAB PO SCH ×2 (09:09→21:31)
[2017-03-12] MEDS: GABAPENTIN 800 MG TAB PO SCH ×2 (09:09→21:32)
[2017-03-12] MEDS: CYANOCOBALAMIN 500 MCG TAB (VIT B-12) PO SCH (09:10)
[2017-03-12] MEDS: AMIODARONE 200 MG TAB PO SCH (09:10)
[2017-03-12] MEDS: FUROSEMIDE 80 MG TAB PO SCH ×2 (09:10→17:14)
[2017-03-12] MEDS: MULTIVITAMIN TAB PO SCH (09:10)
[2017-03-12] MEDS: ALLOPURINOL 100 MG TAB PO SCH (09:11)
--- NOTE | 2017-03-12 09:51 | Medical Consult ---
Consultation Date of Consultation: Mar 12, 2017. Attending Physician: Mehran Alex M.D. History of Present Illness pt admitted with left knee infection, tkr 8 weeks ago, was doing well but had a fall on 02/24, saw ortho outpt and had incision re sutured. States he had an internal stitch which became exposed and then had serous drainage from knee. On Sunday he woke up with onset pain, redness and f/c, acutely. Went to ortho office on sunday and had aspirate, 1,113,900 wbc, 95% Neutrophils. Admitted to hospital, placed on broad spectrum abx and taken to OR on 03/10 for knee removal and spacer placement. aspirate culture and OR cultures with E. faecalis. Blood cultures negative, s/p picc. remains on IV abx. ESR 66. No f/c since admission, tmax this hospital stay 38.1, now afebrile. was on anticoag but could not stop due to acute need for OR, h/h decreased to 6.7 today. for transfusion. has knee pain. no f/c. eating well. no abd pain, no n/v/d. tolerating abx. all remaining ros reviewed and are negative. Past Medical/Surgical History Medical Problems: (1) Abdominal pain Status: Acute (2) Fall from slip, trip, or stumble Status: Acute (3) Hypoxia Status: Acute (4) Pancreatitis Status: Acute (5) Pulmonary edema Status: Acute (6) Respiratory distress Status: Acute (7) Surgical wound dehiscence Status: Acute (8) Vomiting Status: Acute Social History Problems: (1) Status post left knee replacement Status: Acute Family History No significant family history Social History Smoking Status: Never Smoker Smokeless Tobacco Use: Yes (quit 30 years ago ) Alcohol Use: socially Drug Use: none Marital Status: Housing Status: lives with family Occupation Status: retired Allergies Coded Allergies: No Known Allergies (Unverified , 01/04/17) Current Inpatient Medications Current Inpatient Medications Medications (Trade) Dose Ordered Sig/Briana Route Start Time Stop Time Status Last Admin Dose Admin Morphine Sulfate (MoRPHine SULFATE INJ) 2 mg Q2H PRN IV 03/09/17 15:45 03/23/17 15:44 Morphine Sulfate (MoRPHine SULFATE INJ) 4 mg Q2H PRN IV 03/09/17 15:45 03/23/17 15:44 03/12/17 07:53 4 MG Morphine Sulfate (MoRPHine SULFATE INJ) 6 mg Q2H PRN IV 03/09/17 15:45 03/23/17 15:44 03/10/17 23:21 6 MG Oxycodone HCl (Roxicodone Immediate Rel Tab) `1-2 tabs for pain 1 tab ... Q4H PRN PO 03/09/17 15:45 03/23/17 15:44 03/11/17 07:36 10 MG Acetaminophen (Tylenol Tab) 1,000 mg Q8 PO 03/09/17 16:00 04/08/17 15:59 03/12/17 05:45 1,000 MG Allopurinol (Zyloprim Tab) 100 mg DAILY PO 03/10/17 09:00 04/09/17 08:59 03/12/17 09:11 100 MG Amiodarone HCl (Cordarone Tab) 200 mg DAILY PO 03/10/17 09:00 04/09/17 08:59 03/12/17 09:10 200 MG Diltiazem HCl (Cardizem Cd Cap) 180 mg DAILY PO 03/10/17 09:00 04/09/17 08:59 03/12/17 09:08 180 MG Lisinopril (Zestril Tab) 5 mg DAILY PO 03/10/17 09:00 04/09/17 08:59 03/12/17 09:08 5 MG Cyanocobalamin (Vitamin B-12 Tab) 1,000 mcg DAILY PO 03/10/17 09:00 04/09/17 08:59 03/12/17 09:10 1,000 MCG Atorvastatin Calcium (Lipitor Tab) 40 mg HS PO 03/09/17 21:00 04/08/17 20:59 03/11/17 20:20 40 MG Multivitamins (Multivitamin Tab) 1 tab QAM PO 03/10/17 09:00 04/09/17 08:59 03/12/17 09:10 1 TAB Gabapentin (Neurontin Tab) 800 mg BID PO 03/09/17 21:00 04/08/17 20:59 03/12/17 09:09 800 MG Metoprolol Tartrate (Lopressor Tab) 100 mg BID PO 03/09/17 21:00 04/08/17 20:59 03/12/17 09:09 100 MG Ondansetron HCl 6 mg/Dextrose 53 ml @ 216 mls/hr Q6H PRN IV 03/09/17 16:00 04/08/17 15:59 03/10/17 13:02 216 MLS/HR Vancomycin HCl (Consult) 1 ea UD PRN N/A 03/09/17 16:00 04/08/17 15:59 Ceftriaxone Sodium 1 gm/ Dextrose 50 ml @ 100 mls/hr Q24H IV 03/09/17 20:00 04/20/17 19:59 03/11/17 19:31 100 MLS/HR Rivaroxaban (Xarelto Tab) 20 mg QDD PO 03/11/17 12:00 04/10/17 11:59 03/11/17 12:32 20 MG Furosemide (Lasix Tab) 80 mg BID17 PO 03/11/17 17:00 04/10/17 16:59 03/12/17 09:10 80 MG Heparin Sodium (Porcine) (Heparin 10 Unit/ ml 5 ml Flush) 5 ml PRN PRN FLUSH 03/11/17 16:00 04/10/17 15:59 03/12/17 06:44 5 ML Vancomycin HCl 1500 mg/Sodium Chloride 530 ml @ 200 mls/hr NOW ONCE IV 03/12/17 08:30 03/12/17 11:08 03/12/17 09:14 200 MLS/HR Physical Exam Date Time Temp Pulse Resp B/P (MAP) Pulse Ox O2 Delivery O2 Flow Rate FiO2 03/12/17 09:06 70 145/76 (99) 03/12/17 08:00 Room Air 03/12/17 06:50 36.8 67 16 149/78 (101) 94 Room Air 03/11/17 23:10 Room Air 03/11/17 22:46 36.9 89 16 102/59 (73) 97 Room Air 03/11/17 16:00 97 Room Air 03/11/17 15:23 36.7 89 18 101/64 (76) 97 Room Air General Appearance: WD/WN, + mild distress Head: normocephalic, atraumatic Eyes: normal inspection, EOMI Neck: supple Respiratory/Chest: lungs clear, normal breath sounds, no respiratory distress Cardiovascular: regular rate, rhythm, no edema Abdomen/GI: normal bowel sounds, non tender, soft Extremities/Musculoskelatal: no pedal edema, + pertinent finding (lle dressing c/d/i) Neurologic/Psych: alert, oriented x 3 Skin: normal color Laboratory Results Item Value Date Time Gram Stain - Final Resulted 03/09/17 0000 Joint Fluid/Space (Synovial) Knee Left Gram Stain - Final Resulted 03/10/17 0829 Joint Fluid/Space (Synovial) Knee Left Blood Culture - Preliminary Resulted 03/10/17 1212 Blood NO GROWTH TO DATE. Blood Culture - Preliminary Resulted 03/10/17 1222 Blood NO GROWTH TO DATE. Gram Stain - Final Resulted 03/10/17 0829 Joint Fluid/Space (Synovial) Knee Left Last 24 Hours Test 03/11/17 17:59 03/12/17 05:25 03/12/17 06:02 Creatinine 1.30 mg/dl 1.20 mg/dl Est Creatinine Clear Calc Drug Dose 63.7 ml/min 69.0 ml/min Estimated GFR () 65.9 72.6 Estimated GFR (Non- 56.9 62.6 Random Vancomycin Level 19.1 mcg/ml 14.1 mcg/ml White Blood Count 8.20 K/uL Red Blood Count 2.78 M/uL Hemoglobin 6.7 g/dL Hematocrit 22.5 % Mean Corpuscular Volume 80.9 fL Mean Corpuscular Hemoglobin 24.1 pg Mean Corpuscular Hemoglobin Concent 29.8 g/dl RDW Standard Deviation 46.3 fL RDW Coefficient of Variation 15.6 % Platelet Count 269 K/uL Mean Platelet Volume 9.9 fL Sodium Level 138 mmol/L Potassium Level 4.0 mmol/L Chloride Level 105 mmol/L Carbon Dioxide Level 24 mmol/L Anion Gap 9.0 mmol/L Blood Urea Nitrogen 18 mg/dl BUN/Creatinine Ratio 14.7 Random Glucose 104 mg/dl Calcium Level 8.8 mg/dl Assessment & Plan (1) Infection of prosthesis Assessment & Plan: will change to dapto for ease of use with once daily dosing. will need 6 weeks abx, tentative stop date 04/21. will need weekly cbc, cmp, esr, cpk while on abx. can follow with ID post d/c as well.
[2017-03-12] MEDS: DAPTOmycin IV 400 MG in SODIUM CHLORIDE 0.9% 50ML 50 ML IV SCH (10:57)
[2017-03-12 12:26] LABS: HEMATOCRIT 22.2 % (42-52)
--- NOTE | 2017-03-12 13:16 | Orthopedic Progress Note ---
Orthopedic Progress Note Date of Service Mar 12, 2017. Subjective Post OP Day: 2 Reports: feeling well, Denies: complaints, chest pain, SOB, nausea / vomiting, light headedness Additional Notes: HGB 6.7 TODAY. CURRENTLY GETTING PRBCS Objective calves soft nontender, N/V intact, dressing C/D/I, A&O x3, toes mobile Date Time Temp Pulse Resp B/P (MAP) Pulse Ox O2 Delivery O2 Flow Rate FiO2 03/12/17 12:54 36.7 69 18 129/68 03/12/17 09:06 70 145/76 (99) 03/12/17 08:00 Room Air 03/12/17 06:50 36.8 67 16 149/78 (101) 94 Room Air 03/11/17 23:10 Room Air 03/11/17 22:46 36.9 89 16 102/59 (73) 97 Room Air 03/11/17 16:00 97 Room Air 03/11/17 15:23 36.7 89 18 101/64 (76) 97 Room Air Laboratory Results 24 Hours: Test 03/12/17 05:25 03/12/17 11:47 Hematocrit 22.5 % 22.2 % Hemoglobin 6.7 g/dL 6.6 g/dL Additional Notes: GRAM STAIN Final 03/11/17-0854 RESULT MANY POLYS NO ORGANISMS SEEN OR AER/DERICK CULT Preliminary 03/12/17-1156 Organism 1 ENTEROCOCCUS FAECALIS QUANITY RARE SENS SENSITIVITY TO FOLLOW 1. ENTEROCOCCUS FAECALIS Target Route Dose RX AB Cost M.I.C. IQ ------ ----- ------ -- ------ -------- - ------ AMPICILLIN S <=2 GENT SYNERGY S <=500 VANCOMYCIN S 4 PENICILLIN S 2 DAPTOMYCIN S 1 STREP SYNERGY S <=1000 Streptomycin Synergy Screen S Gentamicin Synergy Screen S S = SENSITIVE I = INTERMEDIATE R = RESISTANT Assessment & Plan Assessment: 66 yo male stable POD #2 s/p left TKA excisional arthroplasty, I&D, placement articulated antibiotic spacer Plan: 1. Med management: ID involved, PICC line PLACED - DAPTO Q 24HRS X 6 WEEKS - ANEMIA, CONTINUE TO MONITOR. 2. DVT prophylaxis- resume Xarelto, SCDs 3. PT/OT- ambulation and gentle ROM 4. D/C planning- when PICC line placed, ID has made recommendations for abx, and SS has arranged home/outpt IV abx. Patient seen and examined, agree with above
--- NOTE | 2017-03-12 13:20 | Progress Note ---
Subjective Date of Service: Mar 12, 2017. Subjective Pt evaluation today including: conversation w/ patient, physical exam, chart review, lab review, review of studies, review of inpatient medication list Pt resting comfortably in bed Denies any arm pain No shortness of breath or chest pain Problem List Medical Problems: (1) Abdominal pain Status: Acute (2) Fall from slip, trip, or stumble Status: Acute (3) Hypoxia Status: Acute (4) Pancreatitis Status: Acute (5) Pulmonary edema Status: Acute (6) Respiratory distress Status: Acute (7) Surgical wound dehiscence Status: Acute (8) Vomiting Status: Acute Social History Problems: (1) Status post left knee replacement Status: Acute Review of Systems Constitutional: No fever, No chills, No sweats, No weight loss Eyes: No worsening of vision, No eye pain, No redness, No discharge ENT: No hearing loss, No unusual epistaxis, No nasal symptoms, No sore throat Respiratory: No cough, No sputum, No wheezing, No shortness of breath, No dyspnea on exertion Cardiac: No chest pain, No orthopnea, No PND, No edema, No claudication Abdomen: No pain, No nausea, No vomiting, No diarrhea, No constipation Musculoskeletal: No joint pain, No muscle pain, No swelling Male : No dysuria, No urinary frequency Neurologic: No memory loss, No paralysis, No weakness, No numbness/tingling Psychiatric: No depression symptoms, No anhedonism, No anxiety, No insomnia Endo: No fatigue, No excessive thirst Skin: No rash, No itch Objective Vital Signs Date Time Temp Pulse Resp B/P (MAP) Pulse Ox O2 Delivery O2 Flow Rate FiO2 03/12/17 12:54 36.7 69 18 129/68 03/12/17 09:06 70 145/76 (99) 03/12/17 08:00 Room Air 03/12/17 06:50 36.8 67 16 149/78 (101) 94 Room Air 03/11/17 23:10 Room Air 03/11/17 22:46 36.9 89 16 102/59 (73) 97 Room Air 03/11/17 16:00 97 Room Air 03/11/17 15:23 36.7 89 18 101/64 (76) 97 Room Air Physical Exam General Appearance: WD/WN, no apparent distress Eyes: normal inspection, PERRL, EOMI, sclerae normal ENT: normal ENT inspection, hearing grossly normal, TMs normal, pharynx normal Neck: supple, no adenopathy, thyroid normal, no JVD Respiratory/Chest: chest non-tender, lungs clear, normal breath sounds, no respiratory distress Cardiovascular: regular rate, rhythm, no edema, no gallop, no JVD, no murmur Abdomen: normal bowel sounds, non tender, soft, no organomegaly Extremities: normal range of motion, non-tender, normal inspection, no pedal edema Neurologic/Psychiatric: no motor/sensory deficits, alert, normal mood/affect, oriented x 3 Skin: normal color, warm/dry, no rash Laboratory Results Last 24 Hours Test 03/11/17 17:59 03/12/17 05:25 03/12/17 06:02 03/12/17 11:47 Creatinine 1.30 mg/dl 1.20 mg/dl Est Creatinine Clear Calc Drug Dose 63.7 ml/min 69.0 ml/min Estimated GFR () 65.9 72.6 Estimated GFR (Non- 56.9 62.6 Random Vancomycin Level 19.1 mcg/ml 14.1 mcg/ml White Blood Count 8.20 K/uL Red Blood Count 2.78 M/uL Hemoglobin 6.7 g/dL 6.6 g/dL Hematocrit 22.5 % 22.2 % Mean Corpuscular Volume 80.9 fL Mean Corpuscular Hemoglobin 24.1 pg Mean Corpuscular Hemoglobin Concent 29.8 g/dl RDW Standard Deviation 46.3 fL RDW Coefficient of Variation 15.6 % Platelet Count 269 K/uL Mean Platelet Volume 9.9 fL Sodium Level 138 mmol/L Potassium Level 4.0 mmol/L Chloride Level 105 mmol/L Carbon Dioxide Level 24 mmol/L Anion Gap 9.0 mmol/L Blood Urea Nitrogen 18 mg/dl BUN/Creatinine Ratio 14.7 Random Glucose 104 mg/dl Calcium Level 8.8 mg/dl Assessment and Plan Left knee septic arthritis--s/p removal of hardware and placement of antibiotic spacer for infected L knee on 03/10 s/p replacement on 01/04 Stable, wound care per primary team Left knee cx pos for enterococcus faecalies PICC line place Appreciate ID recs will require 6 weeks of IV daptomycin 400 mg daily Vanco/rocephin started 03/09 and now dced L LE US neg for DVT Acute blood loss anemia in setting of xarelto Hold xarelto at this time Hg 6.7 (03/12/16) and repeat 6.6 Will transfuse 2 units PRBCs at this time Pt is asymptomatic CAD/coronary artery stents 4/paroxysmal atrial fibrillation/diastolic CHF/ hypertension/MR/TR Stable at this time Continue amiodarone 200 mg by mouth every morning, diltiazem extended release 30 mg by mouth every morning with hold parameters, metoprolol tartrate 100 mg by mouth twice a day with hold parameters, furosemide 80 mg by mouth twice a day and lisinopril 5 mg PO daily Hyperlipidemia--continue atorvastatin 40 mg by mouth at bedtime. GERD--continue pantoprazole 40 mg by mouth every evening. Peripheral neuropathy--continue gabapentin 800 mg by mouth twice a day. Vitamin B12 deficiency--continue cyanocobalamin 1000 g by mouth every morning.
[2017-03-12] MEDS ORDERED: NURSING VERBAL MED ORDER ONE (21:30)
[2017-03-12] MEDS ORDERED: DOCUSATE SODIUM 100 MG CAP PO STA (21:31)
[2017-03-12] MEDS: ATORVASTATIN 40 MG TAB PO SCH (21:31)
[2017-03-12] MEDS ORDERED: BISACODYL 10 MG SUPP PR PRN (21:45)
[2017-03-12] MEDS ORDERED: MAGNESIUM HYDROXIDE SUSP 30 ML UDC PO PRN (21:45)
[2017-03-13] MEDS: OXYCODONE HCL IR 5 MG TAB (IMMEDIATE RELEASE) PO PRN ×3 (00:01→14:02)
[2017-03-13] MEDS: ACETAMINOPHEN 500 MG TAB PO SCH ×2 (06:01→14:02)
[2017-03-13 06:42] LABS: BASO % 0.2 %; BASO ABS # 0.02 K/uL (0-0.2); EOS % 1.6 %; HEMATOCRIT 26.5 % (42-52); IG% 0.2 %; LYMPH % 13.5 %; LYMPH ABS # 1.19 K/uL (1.2-3.4); MEAN CELL VOLUME 80.3 fL (80-100); MEAN CORPUSCULAR HEMOGLOBIN 25.5 pg (25-34); MEAN CORPUSCULAR HGB CONC 31.7 g/dl (32-36); MEAN PLATELET VOLUME 9.7 fL (7.4-10.4); MONO % 8.5 %; PLATELET COUNT 318 K/uL (130-400); WHITE BLOOD COUNT 8.83 K/uL (4.8-10.8)
[2017-03-13 07:15] VITALS: BP 143/72; PULSE 109; TEMP 36.6; O2SAT 96
[2017-03-13 07:20] LABS: ANISOCYTOSIS PRESENT; COMPLETE YES; HYPOCHROMIA PRESENT; POLYCHROMASIA 1+
[2017-03-13 08:19] VITALS: BP 120/70; PULSE 104; TEMP 36.9; O2SAT 96
[2017-03-13 08:37] LABS: BUN/CREATININE RATIO 13.9 (10-20); CREATININE 1.4 mg/dl (0.60-1.40); POTASSIUM 3.6 mmol/L (3.5-5.1)
[2017-03-13 08:53] VITALS: BP 114/71; PULSE 87
[2017-03-13] MEDS: DOCUSATE SODIUM 100 MG CAP PO SCH ×2 (08:55→14:01)
[2017-03-13] MEDS: METOPROLOL TARTRATE 100 MG TAB PO SCH (08:56)
[2017-03-13] MEDS: CYANOCOBALAMIN 500 MCG TAB (VIT B-12) PO SCH (08:57)
[2017-03-13] MEDS: AMIODARONE 200 MG TAB PO SCH (08:57)
[2017-03-13] MEDS: MULTIVITAMIN TAB PO SCH (08:57)
[2017-03-13] MEDS: DILTIAZEM HCL 180 MG CAPCR PO SCH (08:58)
[2017-03-13] MEDS: ALLOPURINOL 100 MG TAB PO SCH (08:58)
[2017-03-13] MEDS: FUROSEMIDE 80 MG TAB PO SCH (08:58)
[2017-03-13] MEDS: GABAPENTIN 800 MG TAB PO SCH (08:58)
[2017-03-13] MEDS: LISINOPRIL 5 MG TAB PO SCH (08:59)
[2017-03-13] MEDS ORDERED: DOCUSATE SODIUM 100 MG CAP PO SCH (09:00)
[2017-03-13] MEDS: MoRPHine SULFATE 4 MG/ML 1 ML CARP\\VIAL IV PRN (09:07)
[2017-03-13 09:31] VITALS: O2SAT 96
[2017-03-13] MEDS: DAPTOmycin IV 400 MG in SODIUM CHLORIDE 0.9% 50ML 50 ML IV SCH (10:27)
--- NOTE | 2017-03-13 11:04 | Orthopedic Progress Note ---
Orthopedic Progress Note Date of Service Mar 13, 2017. Subjective Post OP Day: 3 Reports: feeling well Objective calves soft nontender, N/V intact, incision C/D/I, toes mobile Date Time Temp Pulse Resp B/P (MAP) Pulse Ox O2 Delivery O2 Flow Rate FiO2 03/13/17 09:31 96 Room Air 03/13/17 08:53 87 114/71 (85) 03/13/17 08:19 36.9 104 14 120/70 (87) 96 Room Air 03/13/17 07:15 36.6 109 18 143/72 (95) 96 Room Air 03/12/17 23:50 Room Air 03/12/17 23:05 36.7 106 16 123/74 (90) 96 Room Air 03/12/17 18:44 36.8 66 20 155/85 97 03/12/17 17:45 37.1 64 18 135/62 97 03/12/17 16:45 36.7 67 18 124/65 96 03/12/17 16:17 36.9 66 18 119/44 96 03/12/17 16:02 36.6 67 20 138/69 96 03/12/17 15:44 36.8 66 18 139/75 97 03/12/17 15:30 Room Air 03/12/17 14:30 37.1 66 16 136/77 03/12/17 14:00 36.9 66 18 141/68 03/12/17 13:29 37.1 66 18 133/77 03/12/17 13:17 37.2 66 18 140/67 97 03/12/17 12:54 36.7 69 18 129/68 Laboratory Results 24 Hours: Test 03/12/17 11:47 03/13/17 06:26 Hematocrit 22.2 % 26.5 % Hemoglobin 6.6 g/dL 8.4 g/dL White Blood Count 8.83 K/uL Red Blood Count 3.30 M/uL Mean Corpuscular Volume 80.3 fL Mean Corpuscular Hemoglobin 25.5 pg Mean Corpuscular Hemoglobin Concent 31.7 g/dl Platelet Count 318 K/uL Mean Platelet Volume 9.7 fL Neutrophils (%) (Auto) 76.0 % Lymphocytes (%) (Auto) 13.5 % Monocytes (%) (Auto) 8.5 % Eosinophils (%) (Auto) 1.6 % Basophils (%) (Auto) 0.2 % Neutrophils # (Auto) 6.71 K/uL Lymphocytes # (Auto) 1.19 K/uL Monocytes # (Auto) 0.75 K/uL Eosinophils # (Auto) 0.14 K/uL Basophils # (Auto) 0.02 K/uL Additional Notes: Cultures: E Faecalis- huston sensitive Assessment & Plan Assessment: 66 yo male stable POD #3 s/p left TKA excisional arthroplasty, I&D, placement articulated antibiotic spacer, E Faecalis on culture, acute blood loss anemia improved s/p transfusion Plan: 1. Med management: ID involved, PICC line PLACED - DAPTO Q 24HRS X 6 WEEKS - ANEMIA, CONTINUE TO MONITOR. 2. DVT prophylaxis- hold Xarelto secondary to anemia, SCDs 3. PT/OT- ambulation and gentle ROM 4. D/C planning- home with IV abx when approved by [facility]
[2017-03-13] MEDS ORDERED: OXYSR10 PO (11:09)
[2017-03-13] MEDS ORDERED: RXC5 PO (11:09)
--- NOTE | 2017-03-13 11:14 | Discharge Instructions ---
Discharge Instructions Date of Service Mar 13, 2017. Admission Reason for Admission: Infected Total Knee - Left Discharge Discharge Diagnosis / Problem: Septic left TKA Discharge Goals Goal(s): Decrease discomfort, Improve function Activity Recommendations Activity Limitations: as noted below . Instructions / Follow-Up Instructions / Follow-Up ACTIVITY RECOMMENDATIONS: SELF CARE INSTRUCTIONS AFTER TOTAL KNEE REPLACEMENT A. You may progress at your own pace from walking with a walker or crutches to a cane. B. Make walking a part of your daily routine. Be up as much as comfortable with rest periods throughout the day. Rest with leg elevation is very important. Use the ice wrap frequently for the first 3-4 weeks. C. Light daily activities as tolerated. Gentle range of motion as tolerated. E. Wear the long elastic stockings (NOREEN hose) 20 hours a day for 2 weeks after surgery. They can be removed several times a day for laundering and for a bath. F. You may shower, no tub baths until cleared by your doctor. SPECIAL CARE INSTRUCTIONS: VERY IMPORTANT TO READ AND REVIEW A. There are a few signs you need to watch for after you are home. Call [facility] if you notice any of the followin. Increased severe knee pain. Some pain is expected especially when you exercise. 2. Increased swelling in your leg or knee; pain or swelling of the calf muscle in either lower leg. 3. Any fluid drainage from the incision. 4. Shortness of breath or chest pain. B. Please call [facility] at if you have any concerns or questions about your operation or recovery. The doctor or his nurse will return your call promptly. C. You must take antibiotics before dental work, bladder, bowel or other surgery. Your doctor will provide you with a permanent care to carry describing this precaution. IMPORTANT: * HIGH RISK PATIENTS MAY BE PRESCRIBED A STRONGER BLOOD THINNER. THIS WILL BE PROVIDED AT DISCHARGE. * CALL IF INCREASED PAIN, REDNESS, DRAINAGE OR FEVER GREATER THAT 101. * WEAR NOREEN HOSE 20 HOURS PER DAY FOR 2 WEEKS. FOLLOW UP VISIT: If appointment is not already scheduled: Please call [facility] to make a follow-up appointment for 2 weeks after your surgery at . Current Hospital Diet Patient's current hospital diet: Regular Diet Discharge Diet Recommended Diet: Regular Diet Procedures Procedures Performed: Left Knee Excisional Arthroplasty Conversion to Articulated Antibiotic Cement Spacer and Application of Stimulan Beads Pending Studies Studies pending at discharge: no Laboratory Results Hemoglobin A1c Test 12/21/16 11:08 Range/Units Estimated Average Glucose 114 mg/dl Hemoglobin A1c 5.6 4.5-5.6 % Medical Emergencies . Who to Call and When: Medical Emergencies: If at any time you feel your situation is an emergency, please call 911 immediately. . Non-Emergent Contact Non-Emergency issues call your: Surgeon Call Non-Emergent contact if: temperature is above 101.5, your pain is not controlled, wound has increased drainage, wound has increased redness . "Provider Documentation" section prepared by Dony Hardy PA-C. . News Production Supervisor Recommendations News Production Supervisor Recommendations: Follow-up with Dr Lawton in 1-2 weeks. Call for appt. VTE Core Measure Inpt VTE Proph given/why not?: Other Anticoagulation (Resume Xarelto), T.E.D. Stockings, SCD's [place] Drug Monitoring Program Search Results: patient reviewed within database, no issues identified
[2017-03-13 12:16] LABS: HEMATOCRIT 26.2 % (42-52)
--- NOTE | 2017-03-13 13:51 | Progress Note ---
Subjective Date of Service: Mar 13, 2017. Subjective Pt evaluation today including: conversation w/ patient, physical exam, chart review, lab review, review of studies, review of inpatient medication list Pt resting comfortably in bed No fevers or chills, shortness of breath or chest pain No other concerns addressed Wanting to go home Problem List Medical Problems: (1) Abdominal pain Status: Acute (2) Fall from slip, trip, or stumble Status: Acute (3) Hypoxia Status: Acute (4) Pancreatitis Status: Acute (5) Pulmonary edema Status: Acute (6) Respiratory distress Status: Acute (7) Surgical wound dehiscence Status: Acute (8) Vomiting Status: Acute Social History Problems: (1) Status post left knee replacement Status: Acute Review of Systems Constitutional: No fever, No chills, No sweats, No weight loss, No weakness Eyes: No worsening of vision, No eye pain, No redness, No discharge Respiratory: No cough, No sputum, No wheezing, No shortness of breath Cardiac: No chest pain, No orthopnea, No PND, No edema, No claudication Abdomen: No pain, No nausea, No vomiting, No diarrhea, No constipation Musculoskeletal: No joint pain, No muscle pain, No swelling, No calf pain Male : No dysuria, No urinary frequency, No incontinence, No slowing stream Neurologic: No memory loss, No paralysis, No weakness, No numbness/tingling Psychiatric: No depression symptoms, No anhedonism, No anxiety, No insomnia Endo: No fatigue, No excessive thirst, No excessive urination Skin: No rash, No itch Objective Vital Signs Date Time Temp Pulse Resp B/P (MAP) Pulse Ox O2 Delivery O2 Flow Rate FiO2 03/13/17 09:31 96 Room Air 03/13/17 08:53 87 114/71 (85) 03/13/17 08:19 36.9 104 14 120/70 (87) 96 Room Air 03/13/17 07:30 Room Air 03/13/17 07:15 36.6 109 18 143/72 (95) 96 Room Air 03/12/17 23:50 Room Air 03/12/17 23:05 36.7 106 16 123/74 (90) 96 Room Air 03/12/17 18:44 36.8 66 20 155/85 97 03/12/17 17:45 37.1 64 18 135/62 97 03/12/17 16:45 36.7 67 18 124/65 96 03/12/17 16:17 36.9 66 18 119/44 96 03/12/17 16:02 36.6 67 20 138/69 96 03/12/17 15:44 36.8 66 18 139/75 97 03/12/17 15:30 Room Air 03/12/17 14:30 37.1 66 16 136/77 03/12/17 14:00 36.9 66 18 141/68 Physical Exam General Appearance: WD/WN, no apparent distress Eyes: normal inspection, PERRL, EOMI, sclerae normal Neck: supple, no adenopathy, thyroid normal, no JVD Respiratory/Chest: chest non-tender, lungs clear, normal breath sounds, no respiratory distress Cardiovascular: regular rate, rhythm, no edema, no gallop, no JVD Abdomen: normal bowel sounds, non tender, soft, no organomegaly Extremities: normal range of motion, non-tender, normal inspection, no pedal edema Neurologic/Psychiatric: no motor/sensory deficits, alert, normal mood/affect, oriented x 3 Laboratory Results Last 24 Hours Test 03/13/17 05:52 03/13/17 06:26 03/13/17 11:56 Stool Occult Blood POSITIVE White Blood Count 8.83 K/uL Red Blood Count 3.30 M/uL Hemoglobin 8.4 g/dL 8.2 g/dL Hematocrit 26.5 % 26.2 % Mean Corpuscular Volume 80.3 fL Mean Corpuscular Hemoglobin 25.5 pg Mean Corpuscular Hemoglobin Concent 31.7 g/dl Platelet Count 318 K/uL Mean Platelet Volume 9.7 fL Neutrophils (%) (Auto) 76.0 % Lymphocytes (%) (Auto) 13.5 % Monocytes (%) (Auto) 8.5 % Eosinophils (%) (Auto) 1.6 % Basophils (%) (Auto) 0.2 % Neutrophils # (Auto) 6.71 K/uL Lymphocytes # (Auto) 1.19 K/uL Monocytes # (Auto) 0.75 K/uL Eosinophils # (Auto) 0.14 K/uL Basophils # (Auto) 0.02 K/uL RDW Standard Deviation 45.4 fL RDW Coefficient of Variation 15.3 % Immature Granulocyte % (Auto) 0.2 % Immature Granulocyte # (Auto) 0.02 K/uL Polychromasia 1+ Hypochromasia PRESENT Anisocytosis PRESENT Sodium Level 138 mmol/L Potassium Level 3.6 mmol/L Chloride Level 100 mmol/L Carbon Dioxide Level 30 mmol/L Anion Gap 8.0 mmol/L Blood Urea Nitrogen 20 mg/dl Creatinine 1.40 mg/dl Est Creatinine Clear Calc Drug Dose 59.2 ml/min Estimated GFR () 60.3 Estimated GFR (Non- 52.0 BUN/Creatinine Ratio 13.9 Random Glucose 107 mg/dl Calcium Level 9.0 mg/dl Assessment and Plan Left knee septic arthritis--s/p removal of hardware and placement of antibiotic spacer for infected L knee on 03/10 s/p replacement on 01/04 Stable, wound care per primary team Left knee cx pos for enterococcus faecalies PICC line in place Awaiting SD approval for antibx Appreciate ID recs will require 6 weeks of IV daptomycin 400 mg daily Will need weekly CBC, CMP, ESR, CPK Discharge home with home health Acute blood loss anemia in setting of xarelto Resolved Can continue xarelto on discharge Hg 6.7 (03/12/16) - transfused 2 units PRBCs Hg stable in 8's range Pt is asymptomatic CAD/coronary artery stents 4/paroxysmal atrial fibrillation/diastolic CHF/ hypertension/MR/TR Stable at this time Continue amiodarone 200 mg by mouth every morning, diltiazem extended release 30 mg by mouth every morning with hold parameters, metoprolol tartrate 100 mg by mouth twice a day with hold parameters, furosemide 80 mg by mouth twice a day and lisinopril 5 mg PO daily Hyperlipidemia--continue atorvastatin 40 mg by mouth at bedtime. GERD--continue pantoprazole 40 mg by mouth every evening. Peripheral neuropathy--continue gabapentin 800 mg by mouth twice a day. Vitamin B12 deficiency--continue cyanocobalamin 1000 g by mouth every morning. No further recommendations, will sign off at this time, thank you for the consultation
[2017-03-13 14:04] VITALS: BP 114/71; PULSE 87; TEMP 36.9; O2SAT 96
[2017-03-21] MEDS ORDERED: DILT-113 PO (09:09)
[2017-03-21] MEDS ORDERED: CYAN100020 PO (09:09)
[2017-03-21] MEDS ORDERED: MULT-610 PO (09:09)
[2017-03-21] MEDS ORDERED: METO100T14 PO (09:09)
[2017-03-21] MEDS ORDERED: KRIL1CAP18 PO (09:09)
[2017-03-21] MEDS ORDERED: ASPI81TA28 PO (09:09)
[2017-03-21] MEDS ORDERED: PANT40TA PO (10:11)
[2017-03-21] MEDS ORDERED: AMIO200T4 PO (10:11)
[2017-03-21] MEDS ORDERED: AMX500 PO (15:23)
[2017-03-21] MEDS ORDERED: ATOR80TA PO (15:23)
[2017-03-21] MEDS ORDERED: ALL100 PO (15:23)
[2017-03-21] MEDS ORDERED: FURO40TA3 PO (15:23)
[2017-03-21] MEDS ORDERED: GABA1CAP5 PO (15:23)
[2017-03-21] MEDS ORDERED: LSN5 PO (15:23)
[2017-03-21] MEDS ORDERED: POTA1TAB PO (15:23)
--- NOTE | 2017-03-22 15:52 | Discharge Summary ---
Orthopedic Discharge Summary Admission Date/Reason Mar 09, 2017 at 14:37 Infected Total Knee - Left. Discharge Date/Disposition Mar 13, 2017 Home with services Diagnosis Principal Diagnosis: Septic left total knee Procedure(s) Performed Left total knee excisional arthroplasty, I&D, placement of articulated antibiotic spacer Consultations Internal Medicine Infectious Disease Medication Reconciliation Continued Medications: Allopurinol (Allopurinol) 100 Mg Tab 100 MG PO QAM Amiodarone Hcl (Cordarone) 200 Mg Tab 200 MG PO QAM, TAB Amoxicillin (Amoxicillin) 500 Mg Cap 2000 MG PO UD PRN for Pretreat-Prior to Dental Work TAKE THIS MEDICATION ONE HOUR PRIOR TO DENTAL APPOINTMENT Aspirin (Aspirin Ec) 81 Mg Tab 81 MG PO QAM Atorvastatin Calcium (Lipitor) 80 Mg Tab 40 MG PO HS, TAB Cyanocobalamin (Vitamin B12) 1,000 Mcg Tab 1000 MCG PO QD@1200 Diltiazem Hcl Ext Rel (Tiazac) 180 Mg Capcr 180 MG PO QAM, CAP Furosemide (Lasix) 40 Mg Tab 80 MG PO BID, TAB Gabapentin (Neurontin) 400 Mg Cap 800 MG PO BID, CAP Krill Oil (Megared [place]-3 Krill Oil 500 mg) 1 Cap Cap 500 MG PO QD@1200 Lisinopril (Lisinopril) 5 Mg Tab 5 MG PO QAM Metoprolol Tartrate (Lopressor) (Lopressor) 100 Mg Tab 100 MG PO BID, TAB Multiple Vitamins W/ Minerals (Centrum Adults) 1 Tab Tab 1 TAB PO QAM Pantoprazole (Protonix) 40 Mg Tab 40 MG PO QPM, TAB Potassium Gluconate (Potassium Gluconate) 595 Mg Tab 595 MG PO QAM Discontinued Medications: Hydrocodone/Acetaminophen 5MG/325MG ([place] 5MG/325MG) Tab 1 TABLET PO QID PRN for Pain, TAB PRN PAIN Tramadol HCl (Tramadol HCl) 50 Mg Tab 1 TAB PO BID for Pain Admission Physical Exam As per Admitting History & Physical. Hospital Course Pt underwent left total knee excisional arthroplasty, I&D, and placement articulated antibiotic spacer without complication. He tolerated the procedure well and was discharged to the recovery room. The medical service was consulted to assist in his post-op medical management. He was transfused 2 units PRBCs for low H/H of 6.6/22.2. His H/H responded appropriately the next day. Infectious disease was consulted to assist in recommendations for long- term IV antibiotics. His pre-op cultures grew Enterococcus Faecalis and Peptostreptococcus species which were huston-sensitive. He was initially started on IV Vancomycin then switched to IV Daptomycin to facilitate home dosing. A PICC line was placed for 6 weeks of home IV antibiotics. His dressing and drain were discontinued on post-op day 2. He was ambulating and bending his knee appropriately. He was discharged home on 6 weeks IV antibiotics. He will follow-up with ID in 1-[address] Alex in 10-14 days. Discharge Instructions Please refer to the electronic Patient Visit Report (Discharge Instructions) for additional information.
== END 2017-03-13 14:30 | disposition home health service (06) | DRG 464 ==
LOC: C.MSN 14:37
PROC: 0SHD08Z Insertion of Spacer into Left Knee Joint, Open Approach (ICD-10-PCS; principal; 2017-03-10 07:30)
PROC: 0SPW0JZ Removal of Synthetic Substitute from Left Knee Joint, Tibial Surface, Open Approach (ICD-10-PCS; principal; 2017-03-10 07:30)
PROC: 0SPU0JZ Removal of Synthetic Substitute from Left Knee Joint, Femoral Surface, Open Approach (ICD-10-PCS; principal; 2017-03-10 07:30)
DX: T84.54XA Infection and inflammatory reaction due to internal left knee prosthesis, initial encounter (principal); I50.30 Unspecified diastolic (congestive) heart failure; D62 Acute posthemorrhagic anemia; I48.0 Paroxysmal atrial fibrillation; I25.10 Atherosclerotic heart disease of native coronary artery without angina pectoris; E78.5 Hyperlipidemia, unspecified; K21.9 Gastro-esophageal reflux disease without esophagitis; M10.9 Gout, unspecified; I11.0 Hypertensive heart disease with heart failure; G62.9 Polyneuropathy, unspecified; E53.8 Deficiency of other specified B group vitamins; B95.2 Enterococcus as the cause of diseases classified elsewhere; Z79.01 Long term (current) use of anticoagulants; Z79.82 Long term (current) use of aspirin; Z79.899 Other long term (current) drug therapy; Z95.5 Presence of coronary angioplasty implant and graft; Z96.652 Presence of left artificial knee joint; Y79.2 Prosthetic and other implants, materials and accessory orthopedic devices associated with adverse incidents; Y83.1 Surgical operation with implant of artificial internal device as the cause of abnormal reaction of the patient, or of later complication, without mention of misadventure at the time of the procedure

== ENCOUNTER 2017-03-21 18:03 | Emergency (ER) | payer OTHER ==
[~2017-03-21] VITALS: Ht 177.8 cm; Wt 86.5 kg
[~2017-03-21 18:03] MED LIST changes: +ALL100 PO; +AMIO200T4 PO; +AMX500 PO; +ASPI81TA28 PO; +ATOR80TA PO; +DILT-113 PO; +FURO40TA3 PO; +GABA1CAP5 PO; +KRIL1CAP18 PO; +LPT40; +LSN5 PO; +METO100T14 PO; +MULT-610 PO; +OXYSR10 PO; +PANT40TA PO; +POTA1TAB PO; +SILDENAFIL PO
[2017-03-21 18:13] VITALS: Ht 177.8 cm; Wt 86.5 kg
--- NOTE | 2017-03-21 18:38 | EMERGENCY ROOM VISIT NOTE ---
History Report prepared by Zuly: Elis Covarrubias Under the Supervision of: Dr. Gabe Linag D.O. First contact with patient: 18:19 Chief Complaint: REFERRED BY DOCTOR Stated Complaint: NEED BLOOD, LOW HEMOGLOBIN History of Present Illness The patient is a 66 year old male who presents to the Emergency Room for concerns about abnormal labs occurring today. The patient had a recent left knee replacement surgery. About 2 weeks ago, he was hospitalized for a left knee infection. He received 2 units of blood while he was hospitalized. It was suspected that he had lost blood during the knee surgery. He had some shortness of breath a few days ago which has now resolved. He currently denies any pain. The patient has been receiving antibiotics through his PICC line. He had some blood work done this morning which showed hemoglobin level of 6.9. He was referred to the Emergency Room by his PCP's office to receive blood. He was recently started on Hydrocodone. He denies chest pain, black/bloody stools, weakness, or any other complaints. Source of History: patient Onset: today Position: other (global) Symptom Intensity: No pain Quality: other (abnormal labs) Associated Symptoms: No chest pain, No SOB Review of Systems See HPI for pertinent positives & negatives. A total of 10 systems reviewed and were otherwise negative. Past Medical & Surgical Medical Problems: (1) Acute systolic heart failure (2) Atrial fibrillation with RVR (3) Carpal tunnel syndrome (4) Infection of prosthesis (5) Left knee DJD (6) No active medical problems (7) Wound disruption Surgical Problems: (1) Post-operative state Family History No significant family history Social History Smoking Status: Never Smoker Alcohol Use: occasionally Drug Use: none Marital Status: Housing Status: lives with family Occupation Status: retired Current/Historical Medications Scheduled Allopurinol (Allopurinol), 100 MG PO QAM Amiodarone Hcl (Cordarone), 200 MG PO QAM Aspirin (Aspirin Ec), 81 MG PO QAM Atorvastatin Calcium (Lipitor), 40 MG PO HS Chlorhexidine Gluconate (Chlorhexidine Gluconate), 15 ML BU BID Cyanocobalamin (Vitamin B12), 1,000 MCG PO QD@1200 Diltiazem Hcl Ext Rel (Tiazac), 180 MG PO QAM Ferrous Sulfate (Ferrous Sulfate), 325 MG PO DAILY Furosemide (Lasix), 80 MG PO BID Gabapentin (Neurontin), 800 MG PO BID Krill Oil (Megared Haines-3 Krill Oil 500 mg), 500 MG PO QD@1200 Levofloxacin (Levaquin), 750 MG PO DAILY Lisinopril (Lisinopril), 5 MG PO QAM Metoprolol Tartrate (Lopressor) (Lopressor), 100 MG PO BID Multiple Vitamins W/ Minerals (Centrum Adults), 1 TAB PO QAM Oxycodone HCl (Oxycodone HCl ER), 10 MG PO Q12 Pantoprazole (Protonix), 40 MG PO QPM Potassium Gluconate (Potassium Gluconate), 595 MG PO QAM Rivaroxaban (Xarelto), 20 MG PO QPM Sildenafil Citrate (Viagra), 50 MG PO UD Tadalafil (Cialis), 5 MG PO QAM [Unknown Antibiotic], 1 DOSE IV DAILY Scheduled PRN Amoxicillin (Amoxicillin), 2,000 MG PO UD PRN for Pretreat-Prior to Dental Work Hydrocodone/Acetaminophen 5MG/325MG ([place] 5MG/325MG), 1-2 TABLETS PO Q4-6HRS PRN for Pain Tramadol (Ultram), 50 MG PO BID PRN for Pain Allergies Coded Allergies: No Known Allergies (Unverified , 01/04/17) Physical Exam Vital Signs Date Time Temp Pulse Resp B/P (MAP) Pulse Ox O2 Delivery O2 Flow Rate FiO2 03/21/17 22:03 37.4 91 20 124/79 93 Room Air 03/21/17 20:15 86 20 150/80 96 Room Air 03/21/17 19:06 83 03/21/17 18:13 37.5 80 16 125/60 90 Room Air Physical Exam GENERAL: Patient is awake, alert, and in no acute distress. Patient is resting comfortably and showing no signs of anxiety EYES: The conjunctivae are clear. The pupils are round and reactive. EARS, NOSE, MOUTH AND THROAT: The nose is without any evidence of any deformity. Mucous membranes are moist tongue is midline NECK: The neck is nontender and supple. RESPIRATORY: Normal respiratory effort is noted there is no evidence of wheezing rhonchi or rales CARDIOVASCULAR: Tachycardic rate but regular rhythm. No definite murmurs noted to auscultation. GASTROINTESTINAL: The abdomen is soft. Bowel sounds are present in all quadrants. Abdomen is nontender MUSCULOSKELETAL/EXTREMITIES: Skin yanique in the left knee consistent with recent surgery, no erythema, dehiscence, or drainage noted. SKIN: There is no obvious evidence of any rash. There are no petechiae, pallor or cyanosis noted. Pedal edema bilaterally, left greater than right. NEUROLOGIC: Patient is awake alert and oriented x3 Medical Decision & Procedures ER Provider Diagnostic Interpretation: X-ray results as stated below per interpretation by me and the radiologist. CHEST ONE VIEW PORTABLE CLINICAL HISTORY: weakness dyspnea COMPARISON STUDY: 03/11/2017 FINDINGS: Mild stable cardiomegaly. Interval development of right basilar parenchymal infiltrative change. Stable left basilar parenchymal infiltrative change. Mid and upper lungs are generally clear. IMPRESSION: Parenchymal infiltrate right base. Additional chronic changes as noted. The above report was generated using voice recognition software. It may contain grammatical, syntax or spelling errors. Electronically signed by: David Bustillos M.D. 03/21/2017 6:47 PM Dictated Date/Time: 03/21/2017 6:46 PM Laboratory Results 03/21/17 18:45 Red Blood Count 3.21, Mean Corpuscular Volume 79.1, Mean Corpuscular Hemoglobin 24.6, Mean Corpuscular Hemoglobin Concent 31.1, Mean Platelet Volume 9.6, Neutrophils (%) (Auto) 84.9, Lymphocytes (%) (Auto) 7.2, Monocytes (%) (Auto) 6.3, Eosinophils (%) (Auto) 1.3, Basophils (%) (Auto) 0.1, Neutrophils # (Auto) 10.88, Lymphocytes # (Auto) 0.92, Monocytes # (Auto) 0.81, Eosinophils # (Auto) 0.17, Basophils # (Auto) 0.01 03/21/17 18:45 Test 03/21/17 18:45 03/21/17 19:21 White Blood Count 12.81 K/uL (4.8-10.8) Red Blood Count 3.21 M/uL (4.7-6.1) Hemoglobin 7.9 g/dL (14.0-18.0) Hematocrit 25.4 % (42-52) Mean Corpuscular Volume 79.1 fL (80-100) Mean Corpuscular Hemoglobin 24.6 pg (25-34) Mean Corpuscular Hemoglobin Concent 31.1 g/dl (32-36) Platelet Count 603 K/uL (130-400) Mean Platelet Volume 9.6 fL (7.4-10.4) Neutrophils (%) (Auto) 84.9 % Lymphocytes (%) (Auto) 7.2 % Monocytes (%) (Auto) 6.3 % Eosinophils (%) (Auto) 1.3 % Basophils (%) (Auto) 0.1 % Neutrophils # (Auto) 10.88 K/uL (1.4-6.5) Lymphocytes # (Auto) 0.92 K/uL (1.2-3.4) Monocytes # (Auto) 0.81 K/uL (0.11-0.59) Eosinophils # (Auto) 0.17 K/uL (0-0.5) Basophils # (Auto) 0.01 K/uL (0-0.2) RDW Standard Deviation 50.5 fL (36.4-46.3) RDW Coefficient of Variation 17.6 % (11.5-14.5) Immature Granulocyte % (Auto) 0.2 % Immature Granulocyte # (Auto) 0.02 K/uL (0.00-0.02) Polychromasia 1+ Poikilocytosis PRESENT Prothrombin Time 18.4 SECONDS (9.0-12.0) Prothromb Time International Ratio 1.7 (0.9-1.1) Activated Partial Thromboplast Time 61.2 SECONDS (21.0-31.0) Partial Thromboplastin Ratio 2.4 Anion Gap 10.0 mmol/L (3-11) Est Creatinine Clear Calc Drug Dose 39.5 ml/min Estimated GFR () 41.7 Estimated GFR (Non- 35.9 BUN/Creatinine Ratio 18.6 (10-20) Calcium Level 9.1 mg/dl (8.5-10.1) Total Bilirubin 1.7 mg/dl (0.2-1) Direct Bilirubin 0.8 mg/dl (0-0.2) Aspartate Amino Transf (AST/SGOT) 123 U/L (15-37) Alanine Aminotransferase (ALT/SGPT) 94 U/L (12-78) Alkaline Phosphatase 221 U/L (45-117) Troponin I < 0.015 ng/ml (0-0.045) Total Protein 7.0 gm/dl (6.4-8.2) Albumin 2.5 gm/dl (3.4-5.0) Lipase 106 U/L (73-393) Bedside Lactic Acid Venous 1.35 mmol/L (0.90-1.70) Laboratory results per my review. Medications Administered Medications (Trade) Dose Ordered Sig/Briana Route Start Time Stop Time Status Last Admin Dose Admin Levofloxacin (Levaquin / D5W) 750 mg NOW STAT IV 03/21/17 19:13 03/21/17 19:14 DC 03/21/17 20:31 750 MG Sodium Chloride 1,000 ml @ 999 mls/hr Q1H1M STAT IV 03/21/17 19:13 03/21/17 20:13 DC 03/21/17 19:13 999 MLS/HR ECG Indication: SOB/dyspnea Rate (beats per minute): 78 Rhythm: atrial fibrillation Findings: ST depression (diffuse), no ectopy Comparison ECG Date: March 09, 2017 Change: Sinus rhythm has been replaced with A-Fib but otherwise no change when compared to March 09, 2017. ED Course 1818: The patient was evaluated in room A03. A complete history and physical examination were performed. 1912: Sodium Chloride 1000 ml @ 999 mls/hr IV, Levofloxacin 750 mg IV 1937: Upon reevaluation, the patient is resting comfortably. I discussed results and treatment plan with him. He verbalizes agreement and understanding. [facility] The patient will be evaluated for further management and care. 2022: IV team has arrived to take a look at the patient's PICC line. Dr. Post recommended discharging the patient. 2058: Upon reevaluation, the patient is resting comfortably. I discussed the results and treatment plan with him. He verbalized agreement of the treatment plan. He was discharged home. Medical Decision Prior records/ancillary studies reviewed and summarized above. Nursing notes reviewed. Differential diagnosis: Etiologies such as metabolic, infection, hypo/hyperglycemia, electrolyte abnormalities, cardiac sources, intracerebral event, toxicologic, neurologic, as well as others were entertained. The patient is a 66-year-old male who presented to the emergency department for an evaluation after his primary care physician did outpatient laboratory studies and found that he was anemic. The patient also complained of cough and fever over the weekend. His is concerned because she could not use his PICC line for his IV antibiotics. The patient was found have pneumonia in the emergency department. Repeat laboratory studies showed his anemia was improved from the morning's draw. I'm unsure why the morning draw was so different but today his anemia appears at baseline. The patient had a previous workup for this anemia. I discussed the patient's laboratory and radiographic studies with him. I discussed his case with the on-call [facility] hospitalist. He was treated with IV antibiotic in emergency department. He was also given IV fluids. The patient was felt to be a good candidate for outpatient treatment. The IV team came to the emergency department and the patient was able to use the PICC line normally again. Blood cultures were drawn peripherally as well as from the PICC line. The patient was feeling much better and was agreeable to outpatient follow-up. I discussed the patient's laboratory and radiographic studies with him. He was encouraged to continue all medications as prescribed. He was also encouraged to return to the emergency department immediately if symptoms change worsen or the need arises. Medication Reconcilliation Current Medication List: was personally reviewed by me Blood Pressure Screening Patient's blood pressure: Normal blood pressure Consults Time Called: 1913 Consulting Physician[facility] Returned Call: [address] Post of the [facility]. Impression Primary Impression: Pneumonia Additional Impressions: Anemia Weakness Scribe Attestation The scribe's documentation has been prepared under my direction and personally reviewed by me in its entirety. I confirm that the note above accurately reflects all work, treatment, procedures, and medical decision making performed by me. Departure Information Dispostion Home / Self-Care Prescriptions Levofloxacin (Levaquin) 750 Mg Tab 750 MG PO DAILY, #7 TAB Prov: Gabe Liang, 03/21/17 Referrals Lopez Guerrero M.D. (PCP) Forms HOME CARE DOCUMENTATION FORM, IMPORTANT VISIT INFORMATION, WORK / SCHOOL INSTRUCTIONS Patient Instructions My [facility], Pneumonia Additional Instructions Continue all medications as prescribed. Call your family doctor in the morning to schedule a follow-up appointment. I would recommend repeat laboratory studies including repeat CBC as well as LFTs because your liver function studies were mildly elevated today in the emergency department. Return to the emergency department immediately if symptoms change worsen or the need arises. Otherwise continue all medications as prescribed. Problem Qualifiers Primary Impression: Pneumonia Pneumonia type: due to unspecified organism Laterality: right Lung location : lower lobe of lung Qualified Codes: J18.1 - Lobar pneumonia, unspecified organism
--- NOTE | 2017-03-21 18:48 | DIAGNOSTIC IMAGING REPORT ---
CHEST ONE VIEW PORTABLE CLINICAL HISTORY: weakness dyspnea COMPARISON STUDY: 03/11/2017 FINDINGS: Mild stable cardiomegaly. Interval development of right basilar parenchymal infiltrative change. Stable left basilar parenchymal infiltrative change. Mid and upper lungs are generally clear. IMPRESSION: Parenchymal infiltrate right base. Additional chronic changes as noted. The above report was generated using voice recognition software. It may contain grammatical, syntax or spelling errors. Electronically signed by: David Bustillos M.D. 03/21/2017 6:47 PM Dictated Date/Time: 03/21/2017 6:46 PM
[2017-03-21 18:57] LABS: BASO % 0.1 %; BASO ABS # 0.01 K/uL (0-0.2); EOS % 1.3 %; HEMATOCRIT 25.4 % (42-52); IG% 0.2 %; LYMPH % 7.2 %; LYMPH ABS # 0.92 K/uL (1.2-3.4); MEAN CELL VOLUME 79.1 fL (80-100); MEAN CORPUSCULAR HEMOGLOBIN 24.6 pg (25-34); MEAN CORPUSCULAR HGB CONC 31.1 g/dl (32-36); MEAN PLATELET VOLUME 9.6 fL (7.4-10.4); MONO % 6.3 %; NEUT % 84.9 %; PLATELET COUNT 603 K/uL (130-400); RED BLOOD COUNT 3.21 M/uL (4.7-6.1); WHITE BLOOD COUNT 12.81 K/uL (4.8-10.8)
[2017-03-21] MEDS ORDERED: SODIUM CHLORIDE 0.9% 1000ML 1,000 ML IV STA (19:13)
[2017-03-21] MEDS ORDERED: LEVAQUIN 750MG / 150ML D5W IV STA (19:13)
[2017-03-21 19:15] LABS: ALT/SGPT 94 U/L (12-78); AST/SGOT 123 U/L (15-37); BLOOD UREA NITROGEN 35 mg/dl (7-18); BUN/CREATININE RATIO 18.6 (10-20); CALCIUM 9.1 mg/dl (8.5-10.1); CARBON DIOXIDE 28 mmol/L (21-32); CHLORIDE 99 mmol/L (98-107); GLUCOSE 122 mg/dl (70-99); INR 1.7 (0.9-1.1); PARTIAL THROMBOPLASTIN RATIO 2.4; POTASSIUM 3.2 mmol/L (3.5-5.1); PROTHROMBIN TIME (PATIENT) 18.4 SECONDS (9.0-12.0); SODIUM 137 mmol/L (136-145)
[2017-03-21] MEDS ORDERED: TRAM-10 PO (19:15)
[2017-03-21] MEDS ORDERED: HYDR-5688 PO (19:15)
[2017-03-21] MEDS ORDERED: TADA5TAB11 PO (19:15)
[2017-03-21] MEDS ORDERED: FERR325T PO (19:15)
[2017-03-21] MEDS ORDERED: RIVA1TAB4 PO (19:15)
[2017-03-21] MEDS ORDERED: SILD100T PO (19:15)
[2017-03-21 19:19] LABS: COMPLETE YES; POIKILOCYTOSIS PRESENT; POLYCHROMASIA 1+
[2017-03-21] MEDS ORDERED: PRDUDL5 BU (19:19)
[2017-03-21] MEDS ORDERED: OXYC-652 PO (19:19)
[2017-03-21 19:20] LABS: ALKALINE PHOSPHATASE 221 U/L (45-117)
[2017-03-21] MEDS ORDERED: [UNRECOGNIZED DRUG - REMARK] IV (19:20)
--- NOTE | 2017-03-21 20:24 | Medical Consult ---
Consultation Date of Consultation: Mar 21, 2017. Attending Physician: History of Present Illness 66 y/o M Hx chronic AF, diastolic CHF - L TKR 01/17. Knee became infected and pt required removal of hardware and washout 03/10. He returned home with a PICC line to complete a 6 week course of Daptomycin. He required 2 units of blood post-op due to a Hb of 6.6. Per our records he is chronically anemic and since 01/17 has had a baseline hemoglobin of 7-9. Labs were obtained in his primary MDs office today and he was instructed to attend the hospital due to a hemoglobin of 6.9. Labs were repeated in the hospital however and returned with a value of 8.0. Separately, the pt reports that over the weekend he was SOB and his states that he was coughing. She reports that he had a temp of 102 but has not had a temp siince the weekend. A CXR is consistent with a RLL infiltrate. He denes any SOB, cough, CP, N/V or dysuria at the time of evaluation. His also reports that she had some difficulty accessing his PICC this AM to provide his antibiotics and required assistance from the nurse at her clinic. Past Medical/Surgical History Medical Problems: (1) Abdominal pain Status: Acute (2) Anemia Status: Acute (3) Fall from slip, trip, or stumble Status: Acute (4) Hypoxia Status: Acute (5) Pancreatitis Status: Acute (6) Pneumonia Status: Acute (7) Pulmonary edema Status: Acute (8) Respiratory distress Status: Acute (9) Surgical wound dehiscence Status: Acute (10) Vomiting Status: Acute (11) Weakness Status: Acute Social History Problems: (1) Status post left knee replacement Status: Acute Family History No significant family history Social History Smoking Status: Former Smoker Drug Use: none Marital Status: Housing Status: lives with family Occupation Status: retired Allergies Coded Allergies: No Known Allergies (Unverified , 01/04/17) Current Inpatient Medications Current Inpatient Medications Medications (Trade) Dose Ordered Sig/Briana Route Start Time Stop Time Status Last Admin Dose Admin Sodium Chloride 1,000 ml @ 999 mls/hr Q1H1M STAT IV 03/21/17 19:13 03/21/17 20:13 Review of Systems Constitutional: + fever (temp of 102 reported 4 days prior), No chills, No sweats Eyes: No worsening of vision, No eye pain ENT: No hearing loss, No unusual epistaxis, No nasal symptoms Respiratory: + cough (reported 4 days prior), + shortness of breath (reoported when taking percocet), No sputum, No wheezing Cardiovascular: No chest pain, No PND Abdomen: No pain, No nausea, No vomiting Musculoskeletal: + joint pain (At surgical site L knee) Genitourinary - Male: No hematuria, No dysuria Neurologic: No memory loss, No paralysis Psychiatric: No depression symptoms Endocrine: No fatigue Hematologic / Lymphatic: No abnormal bleeding/bruising Integumentary: + rash (Erythema at L knee) Physical Exam Date Time Temp Pulse Resp B/P (MAP) Pulse Ox O2 Delivery O2 Flow Rate FiO2 03/21/17 19:06 83 03/21/17 18:13 37.5 80 16 125/60 90 Room Air General Appearance: WD/WN, no apparent distress Head: normocephalic Eyes: normal inspection, PERRL, EOMI ENT: normal ENT inspection, pharynx normal Neck: supple, no JVD Respiratory/Chest: chest non-tender, no respiratory distress, no accessory muscle use, + crackles (R base only) Cardiovascular: no edema, no JVD, no murmur, + irregularly irregular Abdomen/GI: normal bowel sounds, non tender, soft Back: normal inspection, no CVA tenderness, no muscle spasm, normal range of motion Extremities/Musculoskelatal: normal inspection, no calf tenderness, normal capillary refill Neurologic/Psych: fuel buyer II-XII nml as tested, no motor/sensory deficits, alert, normal mood/affect, normal reflexes, oriented x 3 Skin: + pertinent finding (Erythema at L knee - not significantly tender -no exudate along icision) Laboratory Results Last 24 Hours Test 03/21/17 18:45 03/21/17 19:21 White Blood Count 12.81 K/uL Red Blood Count 3.21 M/uL Hemoglobin 7.9 g/dL Hematocrit 25.4 % Mean Corpuscular Volume 79.1 fL Mean Corpuscular Hemoglobin 24.6 pg Mean Corpuscular Hemoglobin Concent 31.1 g/dl Platelet Count 603 K/uL Mean Platelet Volume 9.6 fL Neutrophils (%) (Auto) 84.9 % Lymphocytes (%) (Auto) 7.2 % Monocytes (%) (Auto) 6.3 % Eosinophils (%) (Auto) 1.3 % Basophils (%) (Auto) 0.1 % Neutrophils # (Auto) 10.88 K/uL Lymphocytes # (Auto) 0.92 K/uL Monocytes # (Auto) 0.81 K/uL Eosinophils # (Auto) 0.17 K/uL Basophils # (Auto) 0.01 K/uL RDW Standard Deviation 50.5 fL RDW Coefficient of Variation 17.6 % Immature Granulocyte % (Auto) 0.2 % Immature Granulocyte # (Auto) 0.02 K/uL Polychromasia 1+ Poikilocytosis PRESENT Prothrombin Time 18.4 SECONDS Prothromb Time International Ratio 1.7 Activated Partial Thromboplast Time 61.2 SECONDS Partial Thromboplastin Ratio 2.4 Sodium Level 137 mmol/L Potassium Level 3.2 mmol/L Chloride Level 99 mmol/L Carbon Dioxide Level 28 mmol/L Anion Gap 10.0 mmol/L Blood Urea Nitrogen 35 mg/dl Creatinine 1.90 mg/dl Est Creatinine Clear Calc Drug Dose 39.5 ml/min Estimated GFR () 41.7 Estimated GFR (Non- 35.9 BUN/Creatinine Ratio 18.6 Random Glucose 122 mg/dl Calcium Level 9.1 mg/dl Total Bilirubin 1.7 mg/dl Direct Bilirubin 0.8 mg/dl Aspartate Amino Transf (AST/SGOT) 123 U/L Alanine Aminotransferase (ALT/SGPT) 94 U/L Alkaline Phosphatase 221 U/L Troponin I < 0.015 ng/ml Total Protein 7.0 gm/dl Albumin 2.5 gm/dl Lipase 106 U/L Bedside Lactic Acid Venous 1.35 mmol/L Assessment & Plan 66 y/o M Hx chronic AF, diastolic CHF - L TKR 01/17. Knee became infected and pt required removal of hardware and washout 03/10. He returned home with a PICC line to complete a 6 week course of Daptomycin. He required 2 units of blood post-op due to a Hb of 6.6. Per our records he is chronically anemic and since 01/17 has had a baseline hemoglobin of 7-9. Labs were obtained in his primary MDs office today and he was instructed to attend the hospital due to a hemoglobin of 6.9. Labs were repeated in the hospital however and returned with a value of 8.0. Separately, the pt reports that over the weekend he was SOB and his states that he was coughing. She reports that he had a temp of 102 but has not had a temp siince the weekend. A CXR is consistent with a RLL infiltrate. He denies any SOB, cough, CP, N/V or dysuria at the time of evaluation. His also reports that she had some difficulty accessing his PICC this AM to provide his antibiotics and required assistance from the nurse at her clinic. The pt will likely be D/Cd for outpt f/u - he was sent in due t a low Hb which it turns out was likely a spurious reading - the medical service will recommend the following 1) PNM - place on Levaquin - provide one dose prior to DC - blood cultures obtained - return to hospital with worsening SOB , persistent fever , productive cough 2) Anemia - persists - would recommend Iron supplementation for a few months as this appears related to his surgery and blood loss - would provide 1 unit prior to DC if possible or arrange as outpt this wk 3) PICC malfunction - this may merit a hospital stay or he will have to return AM if it is possible to schedule with IR 4) AF - rate controlled - cont Xarelto. Metoprolol 5) CHF - chronic diastolic - borderline EF euvolemic on evaluation - cont Lasix , Lisinopril 6) Ortho - L knee infection post-op - cont Dapto - has good outpatient f/u Pt receiving Xarelto prophylaxis Total time for this consult including review of labs, meds, imaging - discussion with pt, and ER attending - 36 min
[2017-03-21] MEDS ORDERED: LEVO1TAB35 PO (20:57)
[2017-03-21 22:03] VITALS: BP 124/79; PULSE 91; TEMP 37.4; O2SAT 93
== END 2017-03-21 22:15 | disposition home or self-care (01) ==
LOC: C.EDB 18:04 → C.EDA 22:15
DX: J18.1 Lobar pneumonia, unspecified organism (principal); D64.9 Anemia, unspecified; R53.1 Weakness; Z98.890 Other specified postprocedural states; Z96.652 Presence of left artificial knee joint; I48.91 Unspecified atrial fibrillation; T82.898A Other specified complication of vascular prosthetic devices, implants and grafts, initial encounter; Y84.8 Other medical procedures as the cause of abnormal reaction of the patient, or of later complication, without mention of misadventure at the time of the procedure; G56.00 Carpal tunnel syndrome, unspecified upper limb; Z79.82 Long term (current) use of aspirin; Z79.899 Other long term (current) drug therapy; Z87.891 Personal history of nicotine dependence; I50.32 Chronic diastolic (congestive) heart failure